=== PATIENT | female | born 1970 | race Caucasian/White ===

== ENCOUNTER → 2020-03-08 09:06 | Outpatient (BNVA) | payer OTHER, SELFPAY | PROVIDERS: PCP Nurse Practitioner Family; Referring Provider Nurse Practitioner Family; Visit Provider Dietitian, Registered | DX: Z76.89 Persons encountering health services in other specified circumstances (principal) ==

== ENCOUNTER → 2020-04-13 09:28 | Outpatient (BNVA) | payer OTHER, SELFPAY | PROVIDERS: PCP Nurse Practitioner Family; Referring Provider Nurse Practitioner Family; Visit Provider Dietitian, Registered | DX: Z76.89 Persons encountering health services in other specified circumstances (principal) ==

== ENCOUNTER 2020-04-21 13:18 | Outpatient (REF) | payer OTHER, SELFPAY | END 2020-04-21 13:19 | disposition home or self-care (01) | LOC: HO.LAB 13:18 | PROVIDERS: PCP Nurse Practitioner Family; Visit Provider Internal Medicine | DX: Z20.828 Contact with and (suspected) exposure to other viral communicable diseases (principal) | CPT/HCPCS: C9803; U0003 ==

== ENCOUNTER 2020-05-05 08:47 | Outpatient (REF) | payer OTHER, SELFPAY ==
[2020-05-05 11:21] LABS: MANUAL DIFF FLAG NO
[2020-05-05 11:27] LABS: Basophils Percent Auto 0.2 % (0-2); Eosinophils Absolute Auto 0.1 X10*3/uL (0.0-0.4); Eosinophils Percent Auto 1.1 % (0-4); Hematocrit 39.4 % (37-47); Hemoglobin 12.8 g/dl (12.0-16.0); Imm Gran Abs Auto 0.02 X10*3/uL (0.00-0.03); Imm Gran Pct Auto 0.4 % (0.0-0.4); Lymphocytes Absolute Auto 2.1 X10*3/uL (1.2-4.9); Lymphocytes Percent Auto 38.1 % (20-40); Mean Corpuscular HGB Conc 32.5 g/dl (31.0-35.0); Mean Corpuscular Volume 89.1 fL (80-98); Mean Platelet Volume 11.3 fL (9.4-12.3); Monocytes Absolute Auto 0.5 X10*3/uL (0.1-1.2); Monocytes Percent Auto 8.3 % (2-11); Neutrophils Absolute Auto 2.8 X10*3/uL (2.0-8.3); Neutrophils Percent Auto 51.9 % (45-73); Platelet Count 258 X10*3/uL (160-400); Red Blood Count 4.42 X10*6/uL (4.20-5.50); Red Cell Distribution Width 13.3 % (11.0-16.0); White Blood Count 5.4 X10*3/uL (4.8-10.8)
[2020-05-05 11:42] LABS: Estimated Average Glucose 166 mg/dL; Hemoglobin A1c % 7.4 %
[2020-05-05 12:01] LABS: TSH reflex Free T4 1.96 mIU/mL (0.32-4.0)
[2020-05-05 12:02] LABS: Alanine Aminotransferase 22 U/L (0-31); Albumin Level 4.2 g/dL (3.5-5.0); Alkaline Phosphatase 63 U/L (39-117); Anion Gap 13 (12-20); Aspartate Amino Transferase 17 U/L (5-31); Bilirubin Total 0.6 mg/dL (0.0-1.0); Blood Urea Nitrogen 10 mg/dL (9-16); Carbon Dioxide 24 mmol/L (22-29); Chloride 105 mmol/L (96-108); Cholesterol 179 mg/dL; Estimated Glomerular Filt Rate > 60; Glucose Fasting 135 mg/dL (60-99); HDL Cholesterol 49 mg/dL; LDL Cholesterol Calculated 101 mg/dl; Potassium 4.4 mmol/l (3.3-5.1); Sodium 138 mmol/L (135-145); Triglycerides 146 mg/dL
== END 2020-05-05 08:48 | disposition home or self-care (01) ==
LOC: HO.HMGCLDS 08:47
PROVIDERS: PCP Nurse Practitioner Family; Visit Provider Nurse Practitioner Family
DX: I10 Essential (primary) hypertension (principal); R73.09 Other abnormal glucose
CPT/HCPCS: 36415; 80053; 80061; 83036; 84443; 85025

== ENCOUNTER 2020-05-10 11:54 | Outpatient (REF) | payer OTHER, SELFPAY ==
[2020-05-12 21:02] LABS: TS Negative Control Passed; TS Panel A 0; TS Panel B 0; TS Positive Control Passed; TSpotTB Negative (SeeBelow)
== END 2020-05-10 11:55 | disposition home or self-care (01) ==
LOC: HO.HMGCLDS 11:54
PROVIDERS: PCP Nurse Practitioner Family; Visit Provider Nurse Practitioner Family
DX: Z11.1 Encounter for screening for respiratory tuberculosis (principal)
CPT/HCPCS: 86481

== ENCOUNTER 2020-05-26 14:16 | Outpatient (REF) | payer OTHER, SELFPAY | END 2020-05-26 14:17 | disposition home or self-care (01) | LOC: HO.LAB 14:16 | PROVIDERS: Visit Provider Hospitalist | DX: Z20.828 Contact with and (suspected) exposure to other viral communicable diseases (principal) | CPT/HCPCS: U0003 ==

== ENCOUNTER → 2020-06-13 09:50 | Outpatient (BNVA) | payer OTHER, SELFPAY | PROVIDERS: PCP Nurse Practitioner Family; Visit Provider Dietitian, Registered | DX: Z76.89 Persons encountering health services in other specified circumstances (principal) ==

== ENCOUNTER 2020-06-21 15:56 | Outpatient (REF) | payer OTHER, SELFPAY ==
[2020-06-21 17:06] LABS: MANUAL DIFF FLAG NO
[2020-06-21 17:09] LABS: Basophils Percent Auto 0.4 % (0-2); Eosinophils Absolute Auto 0.1 X10*3/uL (0.0-0.4); Hemoglobin 12.4 g/dl (12.0-16.0); Imm Gran Abs Auto 0.01 X10*3/uL (0.00-0.03); Imm Gran Pct Auto 0.2 % (0.0-0.4); Lymphocytes Absolute Auto 2.2 X10*3/uL (1.2-4.9); Lymphocytes Percent Auto 44.2 % (20-40); Mean Corpuscular HGB Conc 32.6 g/dl (31.0-35.0); Mean Platelet Volume 10.6 fL (9.4-12.3); Monocytes Absolute Auto 0.3 X10*3/uL (0.1-1.2); Monocytes Percent Auto 6.5 % (2-11); Neutrophils Absolute Auto 2.4 X10*3/uL (2.0-8.3); Neutrophils Percent Auto 47.7 % (45-73); Platelet Count 302 X10*3/uL (160-400); Red Blood Count 4.27 X10*6/uL (4.20-5.50); Red Cell Distribution Width 12.8 % (11.0-16.0)
[2020-06-21 17:29] LABS: Glucose Urine UA NEG (NEG); Leukocyte Esterase Urine NEG (NEG); Nitrite Urine NEG (NEG); Specific Gravity - Urine >= 1.030 (1.005-1.025); Urine Blood NEG (NEG); Urine Ketones NEG (NEG); Urine Protein NEG (NEG-TRACE)
[2020-06-21 17:31] LABS: Alanine Aminotransferase 20 U/L (0-31); Albumin Level 4.2 g/dL (3.5-5.0); Alkaline Phosphatase 64 U/L (39-117); Anion Gap 13 (12-20); Appearance Urine CLEAR; Aspartate Amino Transferase 12 U/L (5-31); Bilirubin Total 0.3 mg/dL (0.0-1.0); Blood Urea Nitrogen 10 mg/dL (9-16); Calcium 9.5 mg/dL (8.4-10.2); Carbon Dioxide 26 mmol/L (22-29); Chloride 104 mmol/L (96-108); Color Urine YELLOW; Estimated Glomerular Filt Rate > 60; Glucose Random 112 mg/dL (60-115); Potassium 3.7 mmol/l (3.3-5.1); Sodium 139 mmol/L (135-145)
[2020-06-21 17:38] LABS: Bacteria Urine 1+ /LPF; Mucus Urine 1+ /LPF; Squamous Epithelial Cell Urine 2+ /LPF
[2020-06-21 17:47] LABS: Creatinine Urine 138.85 mg/dL; Microalbum/Creatinine Ratio Ur 7.9 ug/mg cr
[2020-06-21 17:49] LABS: Erythrocyte Sedimentation Rate 32 MM/HR (0-20)
[2020-06-22 13:28] LABS: Anti DNA DS Antibody <1 IU/mL; Complement C3 148 mg/dL (83-193)
== END 2020-06-21 15:57 | disposition home or self-care (01) ==
LOC: HO.LAB 15:56
PROVIDERS: PCP Nurse Practitioner Family; Referring Provider Nurse Practitioner Family; Visit Provider Student in an Organized Health Care Education/Training Program
DX: M35.01 Sjogren syndrome with keratoconjunctivitis (principal); E11.9 Type 2 diabetes mellitus without complications; I10 Essential (primary) hypertension
CPT/HCPCS: 36415; 80053; 81001; 82043; 85025; 85652; 86140; 86160; 86225

== ENCOUNTER 2020-07-05 15:16 | Outpatient (REF) | payer OTHER, SELFPAY ==
--- NOTE | 2020-07-05 15:20 | XR_ITS ---
EXAMINATION: XR CERVICAL SPINE CLINICAL INFORMATION: Unspecified injury of the neck. Initial encounter. COMPARISON: None TECHNIQUE: 3 views of the cervical spine were obtained. FINDINGS: There is reversal of normal cervical lordosis present. The heights of the cervical vertebrae are well-maintained. The posterior appendages are intact. Decreased disc height, endplate osteophyte formations, consistent with [id number] degenerative spondylosis related changes are noted at C4-C5, C5-C6, and C6-C7. The prespinal soft tissues are unremarkable. The C1-C2 alignment is intact. Both lung apices are clear. XR/XR cervical spine 3V IMPRESSION: Reversal of normal cervical lordosis and superimposed [id number] multilevel degenerative spondylosis.
== END 2020-07-05 15:17 | disposition home or self-care (01) ==
LOC: HO.HMGCX 15:16
PROVIDERS: PCP Nurse Practitioner Family; Visit Provider Nurse Practitioner Family
DX: S19.9XXA Unspecified injury of neck, initial encounter (principal)
CPT/HCPCS: 72040

== ENCOUNTER → 2020-07-11 11:10 | Outpatient (BNVA) | payer OTHER, SELFPAY | PROVIDERS: PCP Nurse Practitioner Family; Visit Provider Dietitian, Registered ==

== ENCOUNTER 2020-08-17 | Outpatient (REF) | payer OTHER, SELFPAY | END 2020-08-17 00:01 | disposition home or self-care (01) | LOC: HO.LNP | PROVIDERS: Visit Provider Hospitalist | DX: R30.0 Dysuria (principal) | CPT/HCPCS: 87086; 87088; 87186 ==

== ENCOUNTER → 2020-08-22 10:13 | Outpatient (BNVA) | payer OTHER, SELFPAY | PROVIDERS: PCP Nurse Practitioner Family; Visit Provider Dietitian, Registered ==

== ENCOUNTER 2020-08-23 14:00 | Outpatient (RCR) | payer OTHER, SELFPAY ==
--- NOTE | 2020-08-18 16:01 | MHC.PT.EP ---
[facility] [place] Office [place] Office [place] Office [address] Madeline Gonzales [address] [phone] F: [phone] F: [phone] F: [phone] F: [phone] Physical Therapy Plan of Care Date of Evaluation: 08/18/20 Date of Surgery: Diagnosis: Traumatic injury of the neck Assessment: The Pt is a 49 y/o female referred to skilled PT for trauma injury of the neck s/p slip and fall down a flight of stairs on 07/04/20. Assessment reveals mild decreased cervical ROM, impaired thoracic spine mobility, altered posture, increased tissue tension, impaired muscle length, ? left cervical spine facet joint dysfunction, and impaired strength. The Pt will benefit from skilled PT services 2x/week for 5 weeks in order to reduce impairments and improve limitations including difficulty bathing, dressing, lifting, reading, computer work, driving, and sleeping. 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 Frequency and Duration: The patient will be seen 2x/week for 5 weeks Short Term Goals: -In 2 weeks, Pt to report <6/10 pain w/ AROM of the cervical spine. -In 3 weeks, Pt to demonstrate a decreased erythematous response w/ IASTM. Half-Way Goals: -In 4 weeks, Pt to report <4/10 pain during light strengthening program. -In 5 weeks, Pt to improve NDI by at least 6 points and/or self report at least 50% improvement since IE. -In 5 weeks, Pt to demonstrate I w/ HEP. Treatment Plan: Modalities to reduce pain, spasms and effusion. Manual therapy to restore motion and function. Therapeutic exercise to improve strength and flexibility. Neuromuscular re-education for posture and balance. Therapeutic activities to return to functional activities of daily living. Electronically signed by: Criselda Koch PT, DPT Please sign and return to therapist. Thank you for your referral.
--- NOTE | 2020-09-09 14:58 | MHC.PT.EP ---
[facility] [place] Office [place] Office [place] Office [address] Madeline Gonzales [address] [phone] F: [phone] F: [phone] F: [phone] F: [phone] Physical Therapy Plan of Care Date of Evaluation: 08/23/20 Date of Surgery: Diagnosis: Traumatic injury of the neck Assessment: The Pt is a 49 y/o female referred to skilled PT for trauma injury of the neck s/p slip and fall down a flight of stairs on 07/04/20. Assessment reveals mild decreased cervical ROM, impaired thoracic spine mobility, altered posture, increased tissue tension, impaired muscle length, ? left cervical spine facet joint dysfunction, and impaired strength. The Pt will benefit from skilled PT services 2x/week for 5 weeks in order to reduce impairments and improve limitations including difficulty bathing, dressing, lifting, reading, computer work, driving, and sleeping. 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 Frequency and Duration: The patient will be seen 2x/week for 5 weeks Short Term Goals: -In 2 weeks, Pt to report <6/10 pain w/ AROM of the cervical spine. -In 3 weeks, Pt to demonstrate a decreased erythematous response w/ IASTM. Assisted Goals: -In 4 weeks, Pt to report <4/10 pain during light strengthening program. -In 5 weeks, Pt to improve NDI by at least 6 points and/or self report at least 50% improvement since IE. -In 5 weeks, Pt to demonstrate I w/ HEP. Treatment Plan: Modalities to reduce pain, spasms and effusion. Manual therapy to restore motion and function. Therapeutic exercise to improve strength and flexibility. Neuromuscular re-education for posture and balance. Therapeutic activities to return to functional activities of daily living. Electronically signed by: Criselda Koch PT, DPT Please sign and return to therapist. Thank you for your referral.
== END 2020-09-09 15:05 | disposition other institution (70) ==
LOC: HO.PT 14:00
PROVIDERS: PCP Nurse Practitioner Family; Visit Provider Nurse Practitioner Family
DX: S19.9XXA Unspecified injury of neck, initial encounter (principal)
CPT/HCPCS: 97110; 97140; 97161

== ENCOUNTER 2021-02-03 14:44 | Outpatient (REF) | payer OTHER, SELFPAY ==
--- NOTE | ~2021-02-03 | MM_ITS ---
EXAMINATION: MM SCREENING DIGITAL BREAST TOMOSYNTHESIS, BILATERAL CLINICAL INFORMATION: Screening. Asymptomatic. The lifetime risk of breast cancer based on the Tyrer-Cuzick Model is 23%. COMPARISON: Mammography: 01/04/2020, 07/18/2018, 03/26/2018, 03/09/2017, 03/02/2016 TECHNIQUE: Digital breast tomosynthesis is performed in both the craniocaudal and mediolateral oblique views along with computer-aided detection (CAD). Synthesized 2D images are generated from the tomosynthesis. FINDINGS: There are scattered areas of fibroglandular density (ACR BI-RADS breast composition Category b). The right breast appears similar to prior studies. There is no developing density or interval mass or architectural abnormality. Neither breast shows abnormal calcifications. The axilla and skin contours are unremarkable. The left CC view has asymmetric density central inner breast mid depth without correlate on MLO view, likely shifting or incompletely compressed fibroglandular tissue. Patient will be recalled to confirm. MM/MM tomosynthesis screening BI IMPRESSION: 1. Left: Asymmetric density central inner breast limited to CC view likely artifact from shifting or incompletely compressed fibroglandular tissue. 2. Right: No mammographic evidence of malignancy. ASSESSMENT: BI-RADS 0: Incomplete - Need Additional Imaging Evaluation RECOMMENDATION: 1. Additional views of the left breast (3-D spot CC, 3-D rolled CC x2). 2. Targeted ultrasound if warranted after review of the additional views. 3. Radiology department staff will contact the patient for additional imaging. This patient's information was entered into a reminder system with a target due date for their next mammogram.
== END 2021-02-03 14:45 | disposition home or self-care (01) ==
LOC: HO.MAMMO 14:44
PROVIDERS: Visit Provider Nurse Practitioner Family
DX: Z12.31 Encounter for screening mammogram for malignant neoplasm of breast (principal)
CPT/HCPCS: 77063; 77067

== ENCOUNTER 2021-02-21 14:06 | Outpatient (REF) | payer OTHER, SELFPAY ==
--- NOTE | ~2021-02-21 | MM_ITS ---
EXAMINATION: MM DIAGNOSTIC DIGITAL BREAST TOMOSYNTHESIS, LEFT TARGETED LEFT BREAST ULTRASOUND CLINICAL INFORMATION: Density central superior aspect left breast. COMPARISON: Mammography: 02/03/2021 and studies dating back to 10/06/2012. TECHNIQUE: Digital breast tomosynthesis is performed. 2D images are generated from the tomosynthesis. The following views are obtained: Spot craniocaudal projection and rolled craniocaudal views medial and lateral. Targeted left breast ultrasound. FINDINGS: There are scattered areas of fibroglandular density (ACR BI-RADS breast composition Category b). The additional views demonstrate question of a persistent density but which may represent a turn in a vessel. Ultrasound evaluation of the left breast did not demonstrate any abnormal cystic or solid masses. No region of abnormal distal sound shadowing appreciated. Results are discussed with the patient at time of visit. MM/MM tomosynthesis added views L IMPRESSION: No specific radiographic or ultrasound findings to suggest malignancy. Question of persistent density but appears to may represent a small intramammary lymph node or loop in vessel. Recommend 6 month follow-up left breast mammography. ASSESSMENT: BI-RADS 3: Probably Benign. RECOMMENDATION: Diagnostic mammography in 6 months. This patient's information was entered into a reminder system with a target due date for their next mammogram.
--- NOTE | ~2021-02-21 | US_ITS ---
EXAMINATION: US DIAGNOSTIC ULTRASOUND BREAST, LEFT CLINICAL INFORMATION: Density. COMPARISON: Mammography of same day and February 03, 2021. TECHNIQUE: Ultrasound of the breast is performed with real-time hoff scale imaging and color Doppler. FINDINGS: Ultrasound evaluation of the left breast did not demonstrate any abnormal cystic or solid masses. No region of abnormal distal sound shadowing appreciated. Results are discussed with the patient at time of visit. US/US breast LT limited IMPRESSION: No specific radiographic or ultrasound findings to suggest malignancy. Question persistent density but appears to may represent a small intramammary lymph node or loop in vessel. Recommend 6 month follow-up left breast mammography. ASSESSMENT: BI-RADS 3: Probably Benign RECOMMENDATION: Diagnostic mammography in 6 months.
== END 2021-02-21 14:07 | disposition home or self-care (01) ==
LOC: HO.MAMMO 14:06
PROVIDERS: Visit Provider Nurse Practitioner Family
DX: R92.2 Inconclusive mammogram (principal)
CPT/HCPCS: 76642; 77061; 77065

== ENCOUNTER 2021-03-23 14:16 | Outpatient (REF) | payer OTHER, SELFPAY ==
[2021-03-24 13:26] LABS: CT PCR NOT DETECTED (Not Detect.); NG PCR NOT DETECTED (Not Detect.)
[2021-03-26 12:35] LABS: BV Int Neg Control Negative (Negative); BV Int Pos Control Positive (Positive)
[2021-03-28 21:47] LABS: HPV mRNA E6/E7 rflx Not Detected (Not Detected)
== END 2021-03-23 14:17 | disposition home or self-care (01) ==
LOC: HO.LAB 14:16
PROVIDERS: Visit Provider Advanced Practice Midwife
DX: Z01.419 Encounter for gynecological examination (general) (routine) without abnormal findings (principal); Z11.51 Encounter for screening for human papillomavirus (HPV); Z11.3 Encounter for screening for infections with a predominantly sexual mode of transmission; C53.9 Malignant neoplasm of cervix uteri, unspecified; Z20.2 Contact with and (suspected) exposure to infections with a predominantly sexual mode of transmission; Z87.42 Personal history of other diseases of the female genital tract
CPT/HCPCS: 87480; 87491; 87510; 87591; 87624; 87660; 88142

== ENCOUNTER 2021-06-28 08:57 | Outpatient (REF) | payer OTHER, SELFPAY ==
--- NOTE | ~2021-06-28 | MR_ITS ---
EXAMINATION: MRI OF THE LEFT ANKLE WITHOUT CONTRAST CLINICAL INFORMATION: Pain left ankle. Patient reports prior surgery with healed skin grafting at age 11. COMPARISON: None TECHNIQUE: MRI left ankle was performed without contrast on a high-field MRI scanner. FINDINGS: Subcutaneous Soft Tissues: There is some minimal irregularity of the skin/superficial soft tissues in the heel pad region perhaps reflecting patient's reported history of prior skin graft. Calcaneal fat pad deep to this appears unremarkable. Muscles and Tendons: Normal. Plantar Fascia: Normal. Neurovascular Structures/Tarsal Tunnel: Normal. Ligaments: Normal. Bone and Articular Cartilage: Normal. Bursa: Normal Joint Fluid: Normal MR/MR ankle LT wo con IMPRESSION: No acute abnormality or explanation for the patient's reported symptoms. Findings in the heel region may reflect patient's remote history of skin graft.
== END 2021-06-28 08:58 | disposition home or self-care (01) ==
LOC: HO.MRI 08:57
PROVIDERS: Visit Provider Nurse Practitioner Family
DX: M25.472 Effusion, left ankle (principal); M25.572 Pain in left ankle and joints of left foot
CPT/HCPCS: 73721

== ENCOUNTER 2021-09-04 09:54 | Outpatient (REF) | payer OTHER, SELFPAY ==
--- NOTE | ~2021-09-04 | MM_ITS ---
EXAMINATION: MM DIAGNOSTIC DIGITAL BREAST TOMOSYNTHESIS, LEFT CLINICAL INFORMATION: Short interval six-month follow-up probable benign summation artifact or old density CC view mid 11:00 left breast. Family history breast cancer, mother. TC score 23%. COMPARISON: Mammography: 02/21/2021, 02/03/2021 (BI-RADS 0), 01/04/2020, 07/18/2018, 03/26/2018, 03/02/2016. Ultrasound left breast 02/21/2021. TECHNIQUE: Digital breast tomosynthesis is performed in both the craniocaudal and mediolateral oblique views along with computer-aided detection (CAD). Synthesized 2D images are generated from the tomosynthesis. Additional rolled CC x2 and ML view are obtained. FINDINGS: There are scattered areas of fibroglandular density (ACR BI-RADS breast composition Category b). The asymmetric density mid 11:00 position is again demonstrated on the standard CC view. The finding resolved on the additional rolled views suggesting summation artifact. There is no abnormal calcification. The skin contours are smooth. Left breast will be reassessed again at time of annual bilateral mammography, due in 6 months. Results are provided to the patient at time of visit by the technologist. MM/MM tomosynthesis diagnostic LT IMPRESSION: Asymmetric density mid 11:00 position limited to CC view resolves on additional rolled CC projections suggesting probable summation artifact. ASSESSMENT: BI-RADS 3: Probably Benign RECOMMENDATION: Diagnostic mammography at time of annual bilateral mammography, due in 6 months. This patient's information was entered into a reminder system with a target due date for their next mammogram.
== END 2021-09-04 09:55 | disposition home or self-care (01) ==
LOC: HO.MAMMO 09:54
PROVIDERS: PCP Nurse Practitioner Family; Visit Provider Nurse Practitioner Family
DX: R92.2 Inconclusive mammogram (principal)
CPT/HCPCS: 77061; 77065

== ENCOUNTER 2022-03-06 14:44 | Outpatient (REF) | payer OTHER, SELFPAY ==
--- NOTE | ~2022-03-06 | MM_ITS ---
EXAMINATION: MM DIAGNOSTIC DIGITAL BREAST TOMOSYNTHESIS, BILATERAL CLINICAL INFORMATION: Due for yearly. Also follow-up nodular asymmetry, suspected summation artifact mid 11:00 left breast. Family history breast cancer, mother. TC score 23%. COMPARISON: Mammography: 09/04/2021, 02/21/2021, 02/03/2021 (BI-RADS 0), 01/04/2020, 07/18/2018, 03/26/2018; ultrasound left breast 02/21/2021. TECHNIQUE: Digital breast tomosynthesis is performed in both the craniocaudal and mediolateral oblique views along with computer-aided detection (CAD). Synthesized 2D images are generated from the tomosynthesis. FINDINGS: There are scattered areas of fibroglandular density (ACR BI-RADS breast composition Category b). No developing density or architectural abnormality. Parenchymal pattern is similar to prior studies. The asymmetric density for follow-up is not seen with certainty. Left breast will be reassessed again at next bilateral annual mammography to conclude chronic surveillance. The skin contours are smooth. Results are provided to the patient at time of visit by the technologist. MM/MM tomosynthesis diagnostic BI IMPRESSION: No mammographic evidence of malignancy. No developing density. ASSESSMENT: BI-RADS 3: Probably Benign RECOMMENDATION: Diagnostic mammography at time of next annual exam, due in 12 months. This patient's information was entered into a reminder system with a target due date for their next mammogram.
== END 2022-03-06 14:45 | disposition home or self-care (01) ==
LOC: HO.MAMMO 14:44
PROVIDERS: Visit Provider Nurse Practitioner Family
DX: R92.2 Inconclusive mammogram (principal); N64.89 Other specified disorders of breast; Z80.3 Family history of malignant neoplasm of breast
CPT/HCPCS: 77062; 77066

== ENCOUNTER 2022-04-19 11:21 | Outpatient (REF) | payer OTHER, SELFPAY ==
[2022-04-20 02:17] LABS: CT PCR NOT DETECTED (Not Detect.); NG PCR NOT DETECTED (Not Detect.)
[2022-04-20 10:11] LABS: BV Int Neg Control Negative (Negative); BV Int Pos Control Positive (Positive)
[2022-05-02 04:57] LABS: HPV mRNA E6/E7 rflx Not Detected (Not Detected)
== END 2022-04-19 11:22 | disposition home or self-care (01) ==
LOC: HO.LNP 11:21
PROVIDERS: Visit Provider Advanced Practice Midwife
DX: Z01.419 Encounter for gynecological examination (general) (routine) without abnormal findings (principal)
CPT/HCPCS: 87480; 87491; 87510; 87591; 87624; 87660; 88142

== ENCOUNTER 2022-04-23 07:14 | Outpatient (REF) | payer OTHER, SELFPAY ==
[2022-04-23 08:14] LABS: Syphilis Screen Nonreactive (Nonreactive)
[2022-04-23 08:21] LABS: HBsAGNum1 0.25 S/CO (0.00-0.99); HIV AB/AG Nonreactive (Nonreactive); HIV Num 1 0.12 S/CO (0.00-0.99); Hepatitis B Surface Antigen Negative (Negative); ~Hepatitis C Antibody Nonreactive (Nonreactive)
== END 2022-04-23 07:15 | disposition home or self-care (01) ==
LOC: HO.LAB 07:14
PROVIDERS: Absent Provider Advanced Practice Midwife; PCP Nurse Practitioner Family; Visit Provider Nurse Practitioner Family
DX: Z11.3 Encounter for screening for infections with a predominantly sexual mode of transmission (principal); Z11.4 Encounter for screening for human immunodeficiency virus [HIV]
CPT/HCPCS: 36415; 86780; 86803; 87340; 87389

== ENCOUNTER 2022-05-04 07:19 | Outpatient (REF) | payer OTHER, SELFPAY ==
[2022-05-04 07:35] LABS: MANUAL DIFF FLAG NO
[2022-05-04 08:13] LABS: Basophils Percent Auto 0.3 % (0-2); Eosinophils Absolute Auto 0.1 X10*3/uL (0.0-0.4); Eosinophils Percent Auto 1.6 % (0-4); Hematocrit 41.2 % (37.0-47.0); Hemoglobin 13.5 g/dl (12.0-16.0); Imm Gran Abs Auto 0.03 X10*3/uL (0.00-0.03); Imm Gran Pct Auto 0.4 % (0.0-0.4); Lymphocytes Absolute Auto 2.5 X10*3/uL (1.2-4.9); Mean Corpuscular HGB Conc 32.8 g/dl (31.0-35.0); Mean Corpuscular Hemoglobin 29.7 pg (27.0-33.0); Mean Corpuscular Volume 90.5 fL (80.0-98.0); Mean Platelet Volume 11.1 fL (9.4-12.3); Monocytes Absolute Auto 0.6 X10*3/uL (0.1-1.2); Monocytes Percent Auto 7.8 % (2-11); Neutrophils Absolute Auto 4.4 x10*3/uL (2.0-8.3); Neutrophils Percent Auto 56.9 % (45-73); Platelet Count 304 X10*3/uL (160-400); Red Blood Count 4.55 X10*6/uL (4.20-5.50); Red Cell Distribution Width 13.5 % (11.0-16.0); White Blood Count 7.7 X10*3/uL (4.8-10.8)
[2022-05-04 08:29] LABS: Estimated Average Glucose 163 mg/dL; Hemoglobin A1c % 7.3 %
[2022-05-04 08:52] LABS: Erythrocyte Sedimentation Rate 29 MM/HR (0-20)
[2022-05-04 09:01] LABS: Appearance Urine Clear; Color Urine Yellow; Glucose Urine UA Negative (Negative); Leukocyte Esterase Urine Small (1+) (Negative); Nitrite Urine Negative (Negative); PH 5.5 (5.0-9.0); Specific Gravity - Urine 1.025 (1.005-1.025); UMIC TRIGGER UACC YES; Urine Blood Negative (Negative); Urine Ketones Negative (Negative); Urine Protein Negative (Neg-Trace)
[2022-05-04 09:07] LABS: Bacteria Urine Trace (None Seen); Hyaline Casts Urine 0-2 /LPF (0-2); RBC Urine 0-2 /HPF (0-2); UACC Culture Trigger YES
[2022-05-04 09:18] LABS: Alanine Aminotransferase 36 U/L (0-31); Albumin Level 4.1 g/dL (3.5-5.0); Alkaline Phosphatase 59 U/L (39-117); Anion Gap 12 (12-20); Aspartate Amino Transferase 15 U/L (5-31); Bilirubin Total 0.3 mg/dL (0.0-1.0); Blood Urea Nitrogen 14 mg/dL (9-16); Calcium 9.3 mg/dL (8.4-10.2); Carbon Dioxide 25 mmol/L (22-29); Chloride 101 mmol/L (96-108); Cholesterol 138 mg/dL; Estimated Glomerular Filt Rate > 60; Glucose Fasting 139 mg/dL (60-99); HDL Cholesterol 49 mg/dL; LDL Cholesterol Calculated 74 mg/dl; Potassium 4.5 mmol/L (3.3-5.1); Sodium 133 mmol/L (135-145); TSH reflex Free T4 1.88 uIU/mL (0.32-4.0); Triglycerides 78 mg/dL
[2022-05-04 09:34] LABS: Folate 16.9 ng/mL (> or = 4.0); Vitamin B12 349 pg/mL (200-900)
[2022-05-04 09:48] LABS: Creatinine Urine 187.13 mg/dL; Microalbum/Creatinine Ratio Ur 11.7 ug/mg cr
[2022-05-06 18:59] LABS: TS Negative Control Passed; TS Panel A 0; TS Panel B 0; TS Positive Control Passed; TSpotTB Negative (Negative)
[2022-05-09 13:22] LABS: A. Phagocytphilium DNA,RT-PCR NOT DETECTED (NOT DETECTED); Babesia Microti DNA, RT-PCR NOT DETECTED (NOT DETECTED); Borrelia Miyamotoi,DNA RT-PCR NOT DETECTED (NOT DETECTED); E.Chaffeensis DNA RT-PCR NOT DETECTED (NOT DETECTED); Lyme(Borrelia ssp)DNA RT-PCR NOT DETECTED (NOT DETECTED)
== END 2022-05-04 07:20 | disposition home or self-care (01) ==
LOC: HO.LAB 07:19
PROVIDERS: PCP Nurse Practitioner Family; Visit Provider Nurse Practitioner Family
DX: Z11.1 Encounter for screening for respiratory tuberculosis (principal); M25.50 Pain in unspecified joint; E11.9 Type 2 diabetes mellitus without complications
CPT/HCPCS: 36415; 80053; 80061; 81001; 81003; 82043; 82607; 82746; 83036; 84443; 85025; 85652; 86141; 86481; 87086; 87798; 87801

== ENCOUNTER 2023-01-08 10:51 | Outpatient (AMB) | payer OTHER, SELFPAY ==
--- NOTE | 2023-01-08 11:28 | AM.OFFWIN_ITS ---
Intake Vital Signs 01/08/23 11:30 Height 5 ft 8 in Weight 98.883 kg BMI 33.1 BP 110/72 Blood Pressure Location Rt brachial Position Sitting Pulse 86 Pulse Source Pulse Oximeter Pulse Oximetry (%) 98 Oxygen Delivery Method Room Air Intake Visit Reasons: EP, Low back pain Intake Note: Patient here for lower back pain, she stated she tripped up the stairs and caught herself on the door on saturday. Patient Tobacco Use Status: Current everyday Tobacco user Allergies No Known Allergies [No Known Allergies*] Allergy (Verified 01/08/23 11:30) Do you need a note to return to daycare/school/sports/work: No HPI HPI Comments History of Present Illness Details 52-year-old female presents with lumbar back pain and bilateral hip pa in after a trip without fall last week. States that the muscle spasms are intense causing her to limp and now has hip pain. She does not report fevers, chills, or symptoms indicating cauda equina. [facility] Medical History HTN (hypertension) Sjogrens syndrome Surgical History H/O LEEP H/O tubal ligation History of foot surgery Family History Father No problems noted. Mother HTN (hypertension) IDDM (insulin dependent diabetes mellitus) Breast cancer Maternal Grandmother History of heart attack Breast cancer Maternal Grandfather History of heart attack Diabetes mellitus Paternal Grandfather No problems noted. Paternal Grandmother No problems noted. Maternal Aunt Cancer Maternal Uncle Lung cancer Smoker Brother No problems noted. Brother No problems noted. Brother No problems noted. Brother No problems noted. Son No problems noted. Son No problems noted. Daughter Healthy female Daughter Healthy female Social History Housing: House Alcohol intake: never Patient Tobacco Use Status: Current everyday Tobacco user Cigarette Packs Per Day: 1 e-Cigarette/Vaping Use: Never Used Second Hand Smoke Exposure: No Current occupational status: employed Cognitive needs: No Hearing needs: No Vision needs: No Female Reproductive History Menstrual Age of Menarche: 12 Review of Systems Const Details: Constitutional: No Fever, No Chills Cardiovascular: No Chest Pain, No SOB Respiratory: No Cough, No Dyspnea Gastrointestinal: No Nausea, No Vomiting, No Diarrhea, No abdominal Pain Genitourinary: No Dysuria, No Hematuria Musculoskeletal: positive lumbar back and bilateral pain, No Myalgias, No Joint Swelling Skin: No Skin lacerations, No rash Neuro: No Weakness, No Numbness, No Paresthesias, No Loss of Consciousness, No Dizziness, No Headache All systems reviewed & are unremarkable except as noted in HPI and below Physical Exam Vital Signs: Last Vital Signs Pulse 86 01/08/23 11:30 BP 110/72 01/08/23 11:30 Pulse Ox 98 01/08/23 11:30 Oxygen Delivery Method Room Air 01/08/23 11:30 BMI result Body Mass Index 33.1 Appearance: Alert. Oriented X3. No acute distress. Eyes: Pupils equal, round and reactive to light. Neck: Normal inspection. Neck supple. CVS: Normal heart rate and rhythm. Pulses normal. Respiratory: No respiratory distress. Breath sounds normal. Skin: Skin warm and dry. Normal skin color. Normal skin turgor. Extremities: No lower extremity edema. Limping but steady gait. Neuro: No motor deficit. No sensory deficit. Cranial nerves 2-12 intact. Assessment & Plan Assessment & Plan (1) Lumbar back pain: Code(s): M54.50 - Low back pain, unspecified (2) Bilateral hip pain: Code(s): M25.551 - Pain in right hip; M25.552 - Pain in left hip Plan 52-year-old female presents for evaluation for lumbar back and bilateral hip pain after a trip last week. Patient tripped, but did not fall or hit her head. She states that after that she had some limping and back spasms. Review of records indicates this patient does not have any prior lumbar x-rays, at this time considering patient's age and comorbidities, will order x-rays. Patient is alert oriented x4, answering her questions politely and appropriately, ambula ting with a limp. No indication of cauda equina. Strength 5/5 to all extremities. Brisk capillary refill and equal pulses. 12:49 x-rays negative for acute findings. Pending radiology read. Will treat with cyclobenzaprine for muscle spasms. Supportive measures with Tylenol and Motrin, patient does understand not take cyclobenzaprine at the same time taking Motrin. Patient will follow up with primary care provider as needed. Patient verbalized understanding of discharge instructions. Verbalized understandings of signs and symptoms indicating need for emergent intervention. Orders: Orders XR pelvis 1-2V Today M25.551 - Pain in right hip, M25.552 - Pain in left hip, M54.50 - Low back pain, unspecified XR lumbar spine 2-3V Today M25.551 - Pain in right hip, M25.552 - Pain in left hip, M54.50 - Low back pain, unspecified Medications: New cyclobenzaprine 10 mg PO TID PRN 20 tabs 0RF muscle spasm Patient Instructions: You were evaluated for lumbar back pain and hip pain. X-rays are negative for acute findings. Your symptoms are consistent with a musculoskeletal strain. Please take cyclobenzaprine 10 mg every 8 hours as needed for muscle spasms. Do not take this medication at the same time as taking ibuprofen. Wait at least 4 hours after taking ibuprofen to take this medicine. This medication is a muscle relaxer, can delay reaction time, increased risk for falls, and cause drowsiness. Do not drive or operate machinery while taking this medication. Alternate Tylenol 650 mg every 6 hours and Motrin 600 mg every 6 hours as needed for pain management. Consider taking these medications 3 hours apart so you have pain and fever management every 3 hours. Write down what time you take these medications to prevent accidental overdose. Motrin is the same medication as Advil and ibuprofen. Tylenol is the same medication as acetaminophen. Thank you for choosing this urgent care for evaluation. Please follow-up with primary care physician as needed. Return to the emergency department for any new, concerning, or worsening symptoms. Coding Level of Care Code Est Pt Level 3 (13516) Diagnoses Lumbar back pain M54.50 Bilateral hip pain M25.551; M25.552
[2023-01-08 11:30] VITALS: BP 110/72; PULSE 86; O2SAT 98; BMI 33.1
== END 2023-01-08 12:51 | disposition home or self-care (01) ==
PROVIDERS: PCP Nurse Practitioner Family; Visit Provider Nurse Practitioner Family
DX: M54.50 Low back pain, unspecified (principal); M25.551 Pain in right hip; M25.552 Pain in left hip
CPT/HCPCS: 99213

== ENCOUNTER 2023-01-08 11:56 | Outpatient (REF) | payer OTHER, SELFPAY ==
--- NOTE | ~2023-01-08 | XR_ITS ---
EXAMINATION: XR LUMBOSACRAL SPINE CLINICAL INFORMATION: Low back pain, unspecified COMPARISON: None available. TECHNIQUE: Three views of the lumbosacral spine. FINDINGS: There are 5 nonrib-bearing lumbar-type vertebral bodies. The height of vertebral bodies is well-maintained. There is minimal disc space narrowing at L3-L4. There is no spondylolisthesis or spondylolysis. There is loss of the usual lumbar lordosis which can be seen with muscle spasm. Facet joints are well preserved. There is sclerosis along the iliac side of the sacroiliac joints consistent with osteitis condensans ilii. XR/XR lumbar spine 2-3V IMPRESSION: 1. Muscle spasm. 2. Minimal degenerative disc disease at L3-L4.
--- NOTE | ~2023-01-08 | XR_ITS ---
EXAMINATION: XR PELVIS CLINICAL INFORMATION: Pain in right hip COMPARISON: None available. TECHNIQUE: AP view of the pelvis. FINDINGS: No fracture. There is minimal narrowing of the cartilage space of the right hip. The left hip joint space is maintained. Alignment is anatomic. Sacroiliac joints and pubic symphysis are normal. No abnormal soft tissue calcifications. XR/XR pelvis 1-2V IMPRESSION: Minimal narrowing of the cartilage space of the right hip.
== END 2023-01-08 11:57 | disposition home or self-care (01) ==
LOC: HO.HMGCX 11:56
PROVIDERS: PCP Nurse Practitioner Family; Visit Provider Nurse Practitioner Family
DX: M25.551 Pain in right hip (principal); M25.552 Pain in left hip; M54.50 Low back pain, unspecified
CPT/HCPCS: 72100; 72170

== ENCOUNTER 2023-01-21 13:54 | Outpatient (AMB) | payer OTHER, SELFPAY ==
[2023-01-21 14:26] VITALS: BP 122/64; PULSE 96; TEMP 36.7; O2SAT 98; BMI 34.1
--- NOTE | 2023-01-21 14:26 | AM.OFFWIN_ITS ---
Intake Vital Signs 01/21/23 14:26 Height 5 ft 8 in Weight 224 lb BMI 34.1 BP 122/64 Blood Pressure Location Lt brachial Position Sitting Pulse 96 Pulse Source Pulse Oximeter Temp 98.0 F Temp Source Temporal Artery Scan Pulse Oximetry (%) 98 Oxygen Delivery Method Room Air Intake Visit Reasons: EP RT Hand swelling due to ?insect bite Intake Note: pt is here for c/o of Rt Hand swelling due to insect bite Patient Tobacco Use Status: Current everyday Tobacco user Allergies No Known Allergies [No Known Allergies*] Allergy (Verified 01/21/23 15:14) Medication List - Last Reconciled 01/21/23 by Paddy Nova MD albuterol sulfate 90 mcg/actuation (Ventolin HFA) 1 inh inhalation QID PRN alcohol swabs (Alcohol Prep Pads) 1 pad topical DAILY atorvastatin 10 mg PO BEDTIME blood sugar diagnostic (FreeStyle Lite Strips) 1 strip miscellaneous twice a day; 30 days blood-glucose meter (FreeStyle Lite Meter kit) As directed bupropion HCl 150 mg PO QAM buspirone 7.5 mg PO BID 30 days cyclobenzaprine 10 mg PO TID PRN ibuprofen 800 mg PO BID PRN 30 days lancets (FreeStyle Lancets) 28 gauge miscellaneous twice a day testing; twice a day testing 30 days lisinopril 2.5 mg PO DAILY physovcddxzc-ykvjcuwz-nanuio 1 tab PO DAILY sumatriptan succinate 50 mg PO ONCE PRN 30 days Do you need a note to return to daycare/school/sports/work: Yes HPI EP RT Hand swelling due to ?insect bite HPI Details 52-year-old female presents to the office for a sick visit. Patient reports she was stung by an insect over the right wrist. Subsequently she is feeling a swelling there and discomfort in her hands. REPLACED BY [facility] Medical History HTN (hypertension) Sjogrens syndrome Surgical History H/O LEEP H/O tubal ligation History of foot surgery Family History Father No problems noted. Mother HTN (hypertension) IDDM (insulin dependent diabetes mellitus) Breast cancer Maternal Grandmother History of heart attack Breast cancer Maternal Grandfather History of heart attack Diabetes mellitus Paternal Grandfather No problems noted. Paternal Grandmother No problems noted. Maternal Aunt Cancer Maternal Uncle Lung cancer Smoker Brother No problems noted. Brother No problems noted. Brother No problems noted. Brother No problems noted. Son No problems noted. Son No problems noted. Daughter Healthy female Daughter Healthy female Social History Housing: House Alcohol intake: never Patient Tobacco Use Status: Current everyday Tobacco user Cigarette Packs Per Day: 1 e-Cigarette/Vaping Use: Never Used Second Hand Smoke Exposure: No Current occupational status: employed Cognitive needs: No Hearing needs: No Vision needs: No Female Reproductive History Menstrual Age of Menarche: 12 Physical Exam Vital Signs: Last Vital Signs Temp 98.0 F 01/21/23 14:26 Pulse 96 01/21/23 14:26 BP 122/64 01/21/23 14:26 Pulse Ox 98 01/21/23 14:26 Oxygen Delivery Method Room Air 01/21/23 14:26 BMI result Body Mass Index 34.1 Extrem Other: Right hand: Swelling over the dorsum of the hand. Minimal discomfort on flexion of the wrist. Assessment & Plan Assessment & Plan (1) Bee sting: Code(s): T63.441A - Toxic effect of venom of bees, accidental (unintentional), initial encounter Plan: Prednisone for a few days. If symptoms not better to follow-up. Coding Level of Care Code Est Pt Level 3 (00290) Diagnoses Bee sting T63.441A
== END 2023-01-21 15:19 | disposition home or self-care (01) ==
PROVIDERS: PCP Nurse Practitioner Family; Visit Provider Internal Medicine
DX: T63.441A Toxic effect of venom of bees, accidental (unintentional), initial encounter (principal)
CPT/HCPCS: 99213

== ENCOUNTER 2023-03-22 13:13 | Outpatient (REF) | payer OTHER, SELFPAY ==
--- NOTE | ~2023-03-22 | MM_ITS ---
EXAMINATION: MM DIAGNOSTIC DIGITAL BREAST TOMOSYNTHESIS, BILATERAL CLINICAL INFORMATION: 6 month follow-up for nodular asymmetry seen left breast in the CC projection slightly medial of nipple line, middle one third. This will establish a two-year stability. COMPARISON: Mammography: 03/06/2022, 09/04/2021, 02/21/2021, 02/03/2021, 01/04/2020. TECHNIQUE: Digital breast tomosynthesis is performed in both the craniocaudal and mediolateral oblique views along with computer-aided detection (CAD). Synthesized 2D images are generated from the tomosynthesis. FINDINGS: There are scattered areas of fibroglandular density (ACR BI-RADS breast composition Category b). No developing density, mass, or architectural abnormality. The parenchymal pattern and stromal pattern is unchanged bilaterally from prior studies. The one view asymmetric density for follow-up is seen, and is less conspicuous than previously, and on tomographic views appears to represent a probable intramammary lymph node as originally suspected. A suspected correlate is seen in the left MLO projection approximate 11:00, middle one third. No additional abnormalities noted in either breast. MM/MM tomosynthesis diagnostic BI IMPRESSION: No findings suspicious for malignancy in either breast. Nodular asymmetry left breast 11:00 axis appears unchanged over 2 years, establishing benignity, and is most likely related to a benign intramammary lymph node. Recommend patient resume annual routine screening for both breasts. ASSESSMENT: BI-RADS BI-RADS 2 - Benign Findings RECOMMENDATION: 1 year F/U Results were provided to the patient at time of visit by the technologist. This patient's information was entered into a reminder system with a target due date for their next mammogram.
== END 2023-03-22 13:14 | disposition home or self-care (01) ==
LOC: HO.MAMMO 13:13
PROVIDERS: PCP Nurse Practitioner Family; Visit Provider Nurse Practitioner Family
DX: R92.2 Inconclusive mammogram (principal)
CPT/HCPCS: 77062; 77066

== ENCOUNTER → 2023-03-22 13:30 | Outpatient (BNV) | payer OTHER, SELFPAY | PROVIDERS: PCP Nurse Practitioner Family; Visit Provider Radiology Diagnostic Radiology | DX: N64.89 Other specified disorders of breast (principal) | CPT/HCPCS: 77062; 77066 ==

== ENCOUNTER 2023-03-26 11:13 | Outpatient (AMB) | payer OTHER, SELFPAY ==
--- NOTE | 2023-03-26 11:16 | A.OFFPC_ITS ---
Vital Signs 03/26/23 11:22 Height 5 ft 8 in Weight 228 lb BMI 34.7 BP 122/80 Blood Pressure Location Rt brachial Position Sitting Pulse 78 Pulse Source Pulse Oximeter Pulse Oximetry (%) 98 Oxygen Delivery Method Room Air Intake Visit Reasons: PE Allergies No Known Allergies [No Known Allergies*] Allergy (Verified 03/26/23 12:06) Medication List - Last Reconciled 03/26/23 by HSERLY Islas albuterol sulfate 90 mcg/actuation (Ventolin HFA) 1 inh inhalation QID PRN alcohol swabs (Alcohol Prep Pads) 1 pad topical DAILY atorvastatin 10 mg PO BEDTIME blood sugar diagnostic (FreeStyle Lite Strips) 1 strip miscellaneous twice a day; 30 days blood-glucose meter (FreeStyle Lite Meter kit) As directed ibuprofen 800 mg PO BID PRN 30 days lancets (FreeStyle Lancets) 28 gauge miscellaneous twice a day testing; twice a day testing 30 days lisinopril 2.5 mg PO DAILY [id number]-[id number] 1 tab PO DAILY sumatriptan succinate 50 mg PO ONCE PRN 30 days Tobacco use date assessed: 03/26/23 Dental Screening Dental Screen Date: 03/26/23 Did you have a dental visit in the last 12 months?: No Did you have a dental problem in the last 6 months where you did not have access to dental care?: Yes Was dental information given to patient?: No HPI PE HPI Details Pt is here for a PE. Will order labs. Mammo is up to date. Due for colon screen, will refer to GI. Pt is a diabetic, on an VI and a statin. A1C in office today is 7.7. Microalbumin is up to date. Denies polyuria, polydipsia, and neuropathy. Pt denies any signs and symptoms of hypoglycemia and does know how to correct it. Pt does not check her blood sugar because she does not like pricking her finger. Will try to send sensor/transmitter. Will start ozempic 0.25mg. Discussed side effects with pt. eye exam is scheduled [facility] Medical History HTN (hypertension) Sjogrens syndrome Surgical History H/O tubal ligation History of foot surgery H/O LEEP Family History Father No problems noted. Mother HTN (hypertension) IDDM (insulin dependent diabetes mellitus) Breast cancer Maternal Grandmother History of heart attack Breast cancer Maternal Grandfather History of heart attack Diabetes mellitus Paternal Grandfather No problems noted. Paternal Grandmother No problems noted. Maternal Aunt Cancer Maternal Uncle Lung cancer Smoker Brother No problems noted. Brother No problems noted. Brother No problems noted. Brother No problems noted. Son No problems noted. Son No problems noted. Daughter Healthy female Daughter Healthy female Social History Housing: House Alcohol intake: never Patient Tobacco Use Status: Current everyday Tobacco user Cigarette Packs Per Day: 1 e-Cigarette/Vaping Use: Never Used Second Hand Smoke Exposure: No Current occupational status: employed Cognitive needs: No Hearing needs: No Vision needs: No Female Reproductive History Menstrual Age of Menarche: 12 Questionnaire Thrive Questionnaire Date Thrive assessed: 06/07/21 AUDIT C Alcohol Use Questionnaire (AUDIT-C) 1. How often do you have a drink containing alcohol?: Never 3. How often do you have six or more drinks on one occasion?: Never Total Score: 0 Score Reviewed/Action Taken: No MINESH-7 AMB Questionnaire MINESH-7 Date MINESH - 7 assessed: 06/07/21 Source: Developed by Drs. Sree Barnes, Kasia Estevez, Juan Manuel Bergman and colleagues, with an educational paul from [employer]. Review of Systems Const Denies chills and Denies fever(s) Eyes Denies blurry vision ENT Denies vertigo, Denies dizziness and Denies sore throat Card Denies chest pain at rest, Denies chest pain with activity, Denies diaphoresis, Denies dyspnea and Denies dyspnea on exertion Resp Denies cough, Denies dyspnea, Denies dyspnea on exertion and Denies wheezing GI Denies abdominal pain, Denies melena, Denies hematochezia, Denies constipation, Denies diarrhea and Denies loose stools Denies hematuria Musc Denies numbness and Denies tingling Skin/Breast Denies lesions Neuro Denies vertigo, Denies dizziness, Denies numbness and Denies tingling Psych Denies anxiety, Denies depression, Denies homicidal ideation, Denies suicidal ideation and Denies other (substance abuse) Aller/Immun Denies wheezing Physical exam (Primary Care) Vital Signs: Last Vital Signs Pulse 78 03/26/23 11:22 BP 122/80 03/26/23 11:22 Pulse Ox 98 03/26/23 11:22 Oxygen Delivery Method Room Air 03/26/23 11:22 BMI result Body Mass Index 34.7 Tobacco/Smoking Status: Tobacco use Status Tobacco use date assessed 03/26/23 03/26/23 11:26 Patient Tobacco Use Status Current everyday Tobacco 03/26/23 11:17 e-Cigarette/Vaping Use Never Used 03/26/23 11:17 Thrive Assessment: Date of Thrive Assessment Date Thrive assessed 06/07/21 03/26/23 11:17 Const General: cooperative Nutritional Appearance: obese Orientation/consciousness: patient oriented x3 HENMT Head: Yes normal to inspection, Yes normocephalic and Yes atraumatic Ears: TM's normal bilaterally Eyes General: appearance normal, both eyes and all related structures Alignment and Position: alignment normal and position normal Neck Neck: Yes normal visual inspection and Yes no lymphadenopathy Thyroid: Thyroid normal Resp Effort & Inspection: normal respiratory effort Auscultation: clear to auscultation bilaterally Cardio Rate: regular rate Rhythm: regular rhythm Heart sounds: S1 normal heart sound present, S2 normal heart sound present and no murmurs GI Palpation (GI): Soft to palpation and nontender Auscultation: normal bowel sounds Skin Rashes: no rashes Neuro General: patient oriented x3, moves all extremities, no focal motor deficits and deep tendon reflexes 2+ bilaterally Romberg Test: Negative Extrem Other: bilat feet: + sensation with use of monofilament Psych Appearance: grossly normal Mental Status: mental status grossly normal Speech and movement: Normal speech and movement present Affect: normal affect Attitude: cooperative Thought process: Normal thought process present Thought content: Normal thought content present Insight: Good insight present (Psych) Judgement: Good judgement present (Psych) Results AMB Hemoglobin A1c AMB Hemoglobin A1c 7.7 % Last Edit by AMNA Zamora on 03/26/23 11 :42 Immunizations pneumoc 20-herson conj-dip cr(PF) 0.5 mL IM syringe Performing Provider: SHERLY Islas Performing Location: [facility] [place] [facility] Administered by: Ani Herrera CMA on 03/26/23 11:52 Dose Route Admin Location Dispensed Lot Number Expiration Date NDC Internal Grinder Set Up Operator 0.5 mL IM Right Deltoid 0.5 mL [id number] 04/02/24 7382-1388-19 [employer]YETH/PFIZER VIS Given Date VIS Provided VIS Publication Date 03/26/23 Single Vaccine 21 Eligibility Eligibility Date Funding Source Not VF Eligible 03/26/23 Private Results Reviewed Results Reviewed: Laboratory Last Values Hgb A1c (Clinic) 7.7 % (4.0-6.0) H 03/26/23 11:39 Assessment and Plan Assessment & Plan (1) Diabetes: Code(s): E11.9 - Type 2 diabetes mellitus without complications Plan: Labs ordered (2) Screening for colon cancer: Code(s): Z12.11 - Encounter for screening for malignant neoplasm of colon Plan: Referred to GI (3) Screening-pulmonary TB: Code(s): Z11.1 - Encounter for screening for respiratory tuberculosis (4) Physical exam: Code(s): Z00.00 - Encounter for general adult medical examination without abnormal findings Plan The patient agreed to the use of a medical certification specialist for this encounter. Scribed for SHERLY Baca by Teresa Muñoz medical certification specialist, on 03/26/2023 at 11:35 EST Orders: Orders TSH reflex Free T4 Today E11.9 - Type 2 diabetes mellitus without complications Lipid Panel Today E11.9 - Type 2 diabetes mellitus without complications Microalbumin, Random (w Creat) Today E11.9 - Type 2 diabetes mellitus without complications T Spot TB Today Z11.1 - Encounter for screening for respiratory tuberculosis Complete Blood Count Auto Diff Today E11.9 - Type 2 diabetes mellitus without complications Comprehensive [place]. Panel Fast Today E11.9 - Type 2 diabetes mellitus without complications UA CC w/rflx Micro + Cult Today E11.9 - Type 2 diabetes mellitus without complications AMB Hemoglobin A1c Today Z13.9 - Encounter for screening, unspecified Pneumococcal 20 Immunization Today Z23 - Encounter for immunization Referrals Gastroenterology Referral Z12.11 - Encounter for screening for malignant neoplasm of colon Medications: New semaglutide (Ozempic) for 4 weeks 0.25 mg (0.368 mL) subcut QWEEK 3 mL 0RF Coding Level of Care Code Est Pt Prev Care 40-64y(31294) Diagnoses Diabetes E11.9 Screening for colon cancer Z12.11 Screening-pulmonary TB Z11.1 Physical exam Z00.00
[2023-03-26 11:22] VITALS: BP 122/80; PULSE 78; O2SAT 98; BMI 34.7
== END 2023-03-26 11:53 | disposition home or self-care (01) ==
PROVIDERS: Visit Provider Nurse Practitioner Family
DX: Z00.00 Encounter for general adult medical examination without abnormal findings (principal); E11.9 Type 2 diabetes mellitus without complications; Z11.1 Encounter for screening for respiratory tuberculosis; Z23 Encounter for immunization
CPT/HCPCS: 83036; 90471; 90677; 99396

== ENCOUNTER 2023-03-27 06:25 | Outpatient (REF) | payer OTHER, SELFPAY ==
[2023-03-27 06:36] LABS: MANUAL DIFF FLAG NO
[2023-03-27 07:18] LABS: Basophils Percent Auto 0.3 % (0-2); Eosinophils Absolute Auto 0.1 X10*3/uL (0.0-0.4); Eosinophils Percent Auto 1.3 % (0-4); Hematocrit 38.4 % (37.0-47.0); Hemoglobin 12.8 g/dl (12.0-16.0); Imm Gran Abs Auto 0.03 X10*3/uL (0.00-0.03); Imm Gran Pct Auto 0.4 % (0.0-0.4); Lymphocytes Absolute Auto 2.4 X10*3/uL (1.2-4.9); Mean Corpuscular HGB Conc 33.3 g/dl (31.0-35.0); Mean Corpuscular Hemoglobin 29.7 pg (27.0-33.0); Mean Corpuscular Volume 89.1 fL (80.0-98.0); Mean Platelet Volume 10.9 fL (9.4-12.3); Monocytes Absolute Auto 0.5 X10*3/uL (0.1-1.2); Monocytes Percent Auto 6.7 % (2-11); Neutrophils Absolute Auto 4.7 x10*3/uL (2.0-8.3); Neutrophils Percent Auto 60.3 % (45-73); Platelet Count 313 X10*3/uL (160-400); Red Blood Count 4.31 X10*6/uL (4.20-5.50); Red Cell Distribution Width 12.9 % (11.0-16.0); White Blood Count 7.8 X10*3/uL (4.8-10.8)
[2023-03-27 07:49] LABS: Alanine Aminotransferase 23 U/L (0-31); Albumin Level 3.9 g/dL (3.5-5.0); Alkaline Phosphatase 55 U/L (39-117); Anion Gap 12 (12-20); Aspartate Amino Transferase 15 U/L (5-31); Bilirubin Total 0.4 mg/dL (0.0-1.0); Blood Urea Nitrogen 12 mg/dL (9-16); Calcium 9.1 mg/dL (8.4-10.2); Carbon Dioxide 22 mmol/L (22-29); Chloride 108 mmol/L (96-108); Cholesterol 175 mg/dL (<200); Estimated Glomerular Filt Rate > 60; Glucose Fasting 128 mg/dL (60-99); HDL Cholesterol 48 mg/dL (>40); LDL Cholesterol Calculated 107 mg/dL (<100); Potassium 3.9 mmol/L (3.3-5.1); Sodium 138 mmol/L (135-145); Triglycerides 104 mg/dL (<150)
[2023-03-27 08:06] LABS: TSH reflex Free T4 1.13 uIU/mL (0.32-4.0)
[2023-03-27 08:22] LABS: Appearance Urine Clear; Color Urine Yellow; Glucose Urine UA Negative (Negative); Leukocyte Esterase Urine Trace (Negative); Nitrite Urine Negative (Negative); PH 5.5 (5.0-9.0); UMIC TRIGGER UACC YES; Urine Blood Negative (Negative); Urine Ketones Negative (Negative); Urine Protein Negative (Neg-Trace)
[2023-03-27 08:27] LABS: Bacteria Urine 2+ (None Seen); Hyaline Casts Urine 0-2 /LPF (0-2); RBC Urine 0-2 /HPF (0-2); Squamous Epithelial Cell Urine 0-2 /HPF (0-2); UACC Culture Trigger YES
[2023-03-27 08:36] LABS: Creatinine Urine 134.72 mg/dL; Microalbum/Creatinine Ratio Ur 10.3 ug/mg cr (<30)
[2023-03-29 22:23] LABS: TS Negative Control Passed; TS Panel A 0; TS Panel B 0; TS Positive Control Passed; TSpotTB Negative (Negative)
== END 2023-03-27 06:26 | disposition home or self-care (01) ==
LOC: HO.LAB 06:25
PROVIDERS: PCP Nurse Practitioner Family; Visit Provider Nurse Practitioner Family
DX: Z11.1 Encounter for screening for respiratory tuberculosis (principal); E11.9 Type 2 diabetes mellitus without complications; R82.90 Unspecified abnormal findings in urine
CPT/HCPCS: 36415; 80053; 80061; 81001; 82043; 82570; 84443; 85025; 86481; 87086; 87088; 87186

== ENCOUNTER 2023-04-16 08:57 | Outpatient (AMB) | payer OTHER, SELFPAY ==
--- NOTE | 2023-04-16 09:06 | A.OFFVIS_ITS ---
Intake Vital Signs 04/16/23 09:09 Height 5 ft 8 in Weight 225 lb BMI 34.2 BP 140/79 H Blood Pressure Location Lt brachial Position Sitting Pulse 96 Intake Visit Reasons: Colonoscopy Screening Intake Note: Patient new consult for 2nd pre colonoscopy screening. Patient cc: acid reflex on and off, denies other any GI issues. Dry Wall Nailer Required: No Accompanied by: Self / Same As Patient Allergies No Known Allergies [No Known Allergies*] Allergy (Verified 04/16/23 09:04) Medication List - Last Reconciled 04/16/23 by Izzy Jacobson PA-C albuterol sulfate 90 mcg/actuation (Ventolin HFA) 1 inh inhalation QID PRN alcohol swabs (Alcohol Prep Pads) 1 pad topical DAILY atorvastatin 10 mg PO BEDTIME blood sugar diagnostic (FreeStyle Lite Strips) 1 strip miscellaneous twice a day; 30 days blood-glucose meter (FreeStyle Lite Meter kit) As directed ibuprofen 800 mg PO BID PRN 30 days lancets (FreeStyle Lancets) 28 gauge miscellaneous twice a day testing; twice a day testing 30 days lisinopril 2.5 mg PO DAILY [id number]-bkyphzmr-frzwdm 1 tab PO DAILY nitrofurantoin macrocrystal 100 mg PO BID 5 days semaglutide (Ozempic) 0.25 mg (0.368 mL) subcut QWEEK sumatriptan succinate 50 mg PO ONCE PRN 30 days HPI HPI Comments History of Present Illness Details A 52 y/o female referred for colonoscopy-hx colon polyps- 2019- Dr. Galvan Large hemorrhoids, part of life - diverticulosis-has never had issues with diverticulitis Appetite is good Bowels are normal No cardiac or respiratory issues Works 2 jobs No nausea, vomiting, hematemesis, hematochezia fever chills PFSH Medical History HTN (hypertension) Sjogrens syndrome Surgical History H/O tubal ligation History of foot surgery H/O LEEP Family History Father No problems noted. Mother HTN (hypertension) IDDM (insulin dependent diabetes mellitus) Breast cancer Maternal Grandmother History of heart attack Breast cancer Maternal Grandfather History of heart attack Diabetes mellitus Paternal Grandfather No problems noted. Paternal Grandmother No problems noted. Maternal Aunt Cancer Maternal Uncle Lung cancer Smoker Brother No problems noted. Brother No problems noted. Brother No problems noted. Brother No problems noted. Son No problems noted. Son No problems noted. Daughter Healthy female Daughter Healthy female Social History Housing: House Alcohol intake: never Patient Tobacco Use Status: Current everyday Tobacco user Cigarette Packs Per Day: 1 e-Cigarette/Vaping Use: Never Used Second Hand Smoke Exposure: No Current occupational status: employed Cognitive needs: No Hearing needs: No Vision needs: No Female Reproductive History Menstrual Age of Menarche: 12 Review of Systems Const All systems reviewed & are unremarkable except as noted in HPI and below Card Denies chest pain and Denies dyspnea Resp Denies dyspnea GI Denies abdominal pain, Denies heartburn, Denies nausea and Denies vomiting Physical Exam Vital Signs: Last Vital Signs Pulse 96 04/16/23 09:09 BP 140/79 H 04/16/23 09:09 BMI result Body Mass Index 34.2 Const General: cooperative, healthy appearing, comfortable and no acute distress Orientation/consciousness: patient oriented x3 Limitations: no limitations Eyes Sclerae: sclerae normal Resp Effort & Inspection: normal respiratory effort and able to speak in complete sentences Auscultation: clear to auscultation bilaterally, no rales, no rhonchi and no wheezes Cardio Rate: regular rate Rhythm: regular rhythm Heart sounds: S1 normal heart sound present and S2 normal heart sound present GI Palpation (GI): Soft to palpation and nontender Auscultation: normal bowel sounds Skin General skin exam: no rashes or lesions noted Neuro General: patient oriented x3 Extrem General: Yes full ROM Psych Appearance: grossly normal and well kempt Mental Status: mental status grossly normal Speech and movement: Clear speech present Affect: normal affect Attitude: cooperative Thought process: Normal thought process present Thought content: Normal thought content present Judgement: Limited judgement present (Psych) Assessment & Plan Assessment & Plan (1) History of colon polyps: Comment: A 52 y/o F- non compliant- with medications -lengthy a discussion -benefit risk ratio Hx adenomas-due for screening colonoscopy Reviewed medication list patient admits she is not taking any medications, alex thy discussion to include benefit risk ratio certainly with antihypertensive to include stroke Code(s): Z86.010 - Personal history of colonic polyps Plan: Polyp surveillance colonoscopy (2) Hemorrhoids: Comment: Large hemorrhoids, declined surgical referral due to COpay Declines hydrocortisone due to cost- Code(s): K64.9 - Unspecified hemorrhoids Plan: Maintain high-fiber diet Avoid straining Rectal cream-declined (3) Diverticulosis of colon: Code(s): K57.30 - Diverticulosis of large intestine without perforation or abscess without bleeding Plan: ER protocol maintain high-fiber diet Plan Polyp surveillance colonoscopy MiraLax Gatorade prep Please do not schedule follow-up visit Patient will call for results (to to co-pay) Orders: Orders Colonoscopy - GI Use Only Today K57.30 - Diverticulosis of large intestine without perforation or abscess without bleeding, Z86.010 - Personal history of colonic polyps Medications: New bisacodyl (Dulcolax (bisacodyl)) Day before procedure, prep day Take 4 tablets by mouth upon awakening followed by large glass of water 20 mg (4 x 5 mg) PO ONCE 1 day 4 tabs 0RF colonoscopy prep Z12.11 - Encounter for screening for malignant neoplasm of colon polyethylene glycol 3350 (Miralax) Take as directed by mouth the day before your procedure. 238 grams PO ONCE 1 day PRN 238 grams 0RF laxative effect Patient Instructions: Polyp surveillance colonoscopy MiraLax Gatorade prep-literature given Maintain high-fiber diet Avoid straining Call with any questions or concerns Call if she reconsiders-hemorrhoidal refer or cream The encouraged patient to follow-up with PCP to discuss medications Coding Level of Care Code New Pt Level 4 (72284) Diagnoses History of colon polyps Z86.010 Hemorrhoids K64.9 Diverticulosis of colon K57.30 Time Spent (min) 30
[2023-04-16 09:09] VITALS: BP 140/79; PULSE 96; BMI 34.2
== END 2023-04-16 10:02 | disposition home or self-care (01) ==
PROVIDERS: PCP Nurse Practitioner Family; Visit Provider Physician Assistant
DX: Z86.010 Personal history of colon polyps (principal); K64.9 Unspecified hemorrhoids; K57.30 Diverticulosis of large intestine without perforation or abscess without bleeding
CPT/HCPCS: 99204

== ENCOUNTER → 2023-04-16 08:57 | Outpatient (BNVA) | payer OTHER, SELFPAY | PROVIDERS: PCP Nurse Practitioner Family; Visit Provider Physician Assistant ==

== ENCOUNTER 2023-04-19 11:21 | Outpatient (REF) | payer OTHER, SELFPAY ==
[2023-04-20 04:58] LABS: CT PCR NOT DETECTED (Not Detect.); NG PCR NOT DETECTED (Not Detect.)
[2023-04-20 13:30] LABS: BV Int Neg Control Negative (Negative); BV Int Pos Control Positive (Positive)
== END 2023-04-19 11:22 | disposition home or self-care (01) ==
LOC: HO.LNP 11:21
PROVIDERS: Visit Provider Advanced Practice Midwife
DX: Z01.411 Encounter for gynecological examination (general) (routine) with abnormal findings (principal); E11.9 Type 2 diabetes mellitus without complications; L85.3 Xerosis cutis; M54.9 Dorsalgia, unspecified; N95.1 Menopausal and female climacteric states; Z11.3 Encounter for screening for infections with a predominantly sexual mode of transmission
CPT/HCPCS: 0353U; 87480; 87510; 87660

== ENCOUNTER 2023-04-19 11:21 | Outpatient (AMB) | payer OTHER, SELFPAY ==
--- NOTE | 2023-04-19 11:26 | MHC.OFFVIS ---
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 Suit Attendant Required: No Information Interpreted: non-clinical & clinical Compliance Examiner: Compliance Examiner Present (Aidyn) Allergies Sulfa (Sulfonamide Antibiotics) Allergy (Mild, Verified 04/19/23 11:30) itchy Medication List - Last Reconciled 04/19/23 by Amparo Graham CNM albuterol sulfate 90 mcg/actuation (Ventolin HFA) 1 inh inhalation QID PRN alcohol swabs (Alcohol Prep Pads) 1 pad topical DAILY atorvastatin 10 mg PO BEDTIME bisacodyl (Dulcolax (bisacodyl)) 20 mg (4 x 5 mg) PO ONCE 1 day blood sugar diagnostic (FreeStyle Lite Strips) 1 strip miscellaneous twice a day; 30 days blood-glucose meter (FreeStyle Lite Meter kit) As directed ibuprofen 800 mg PO BID PRN 30 days lancets (FreeStyle Lancets) 28 gauge miscellaneous twice a day testing; twice a day testing 30 days lisinopril 2.5 mg PO DAILY xepljnadmdsd-gozigdzv-osstlp 1 tab PO DAILY polyethylene glycol 3350 (Miralax) 238 grams PO ONCE PRN 1 day sumatriptan succinate 50 mg PO ONCE PRN 30 days Is last menstrual period known: Yes Last menstrual period: 12/14/22 Post menopausal: No HPI AIR[employer] MECH[employer]IC annual exam HPI Details 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 She is in discussions with her primary care provider about what to do about her diabetes she is very clear that she does not want to take metformin and she had agreed to take an injectable treatment but now her insurance is giving her problem about it. She has working hard to be good about her diet she does get sufficient protein and vegetables however she does like rice. It is difficult to find time for exercise she just started another job. She has lots of family responsibility so it is hard She does have lots of back pain but it is hard to find time to do anything about it She also has what appears to be very dry skin that can be very itchy at times. She does get extreme reactions to things like mosquito bites in the summer and anything can cause her to itch. [facility] Medical History Sjogrens syndrome HTN (hypertension) Surgical History H/O tubal ligation History of foot surgery H/O LEEP Family History Father No problems noted. Mother HTN (hypertension) IDDM (insulin dependent diabetes mellitus) Breast cancer Maternal Grandmother History of heart attack Breast cancer Maternal Grandfather History of heart attack Diabetes mellitus Paternal Grandfather No problems noted. Paternal Grandmother No problems noted. Maternal Aunt Cancer Maternal Uncle Lung cancer Smoker Brother No problems noted. Brother No problems noted. Brother No problems noted. Brother No problems noted. Son No problems noted. Son No problems noted. Daughter Healthy female Daughter Healthy female Social History Housing: House Alcohol intake: never Patient Tobacco Use Status: Current everyday Tobacco user Cigarette Packs Per Day: 1 e-Cigarette/Vaping Use: Never Used Second Hand Smoke Exposure: No Current occupational status: employed Cognitive needs: No Hearing needs: No Vision needs: No Female Reproductive History Menstrual Age of Menarche: 12 Date of last menstrual period: 12/14/22 control method: other (tubal ligation) Total pregnancies: 5 Full term: 4 Number of Living Children: 4 Ab spontaneous: 1 Date of last pap smear: 04/20/22 (negative) History of abnormal pap smear: Yes (1999 NADIA 1, 1995 1994 ASCUS) Date of Mammogram: 03/22/23 Physical Exam Vital Signs: Last Vital Signs BP 138/88 04/19/23 11:27 BMI result Body Mass Index 34.7 Const Other: Patient moving with some obvious lower back pain when trying to lie flat for exam and then sit up General: healthy appearing, comfortable, no acute distress, well developed and alert Nutritional Appearance: average body habitus and obese Orientation/consciousness: patient oriented x3 Limitations: no limitations HEENT Head: Yes normocephalic Neck Neck: Yes normal visual inspection Thyroid: Thyroid normal Chest Chest palpation & inspection: normal inspection of the chest Breast/axilla inspection: normal inspection of the breasts and normal inspection of the axillae Breast/axilla palpation: normal palpation of the breasts and normal palpation of the axillae Resp Effort & Inspection: normal respiratory effort GI Inspection: Yes normal to inspection, No Abdominal wall edema and No distended Palpation (GI): Soft to palpation and nontender Other: External exam within normal limits vagina pink and moist cervix multiparous with evidence of previous procedures to her cervix many years ago last abnormal Paps greater than 20 years. Uterus is anteverted to midposition, cervix nontender uterus nontender mobile adnexa nontender good tone with Kegel. General: Yes bladder normal to palpation External Female Exam: normal external appearance and normal appearance of the urethra Speculum Exam - Vagina: normal appearance of the vagina, normal palpation and normal vaginal discharge Speculum Exam - Cervix: normal appearance of the cervix, normal palpation and nontender Bimanual exam- vagina & uterus: normal bimanual exam, normal palpation, uterine size normal, bladder normal to palpation, consistency normal, normal palpation, uterine mobility normal, uterine shape normal, No Cervical tenderness present, non-tender and no cervical motion tenderness Bimanual Exam- Adnexa, other: normal adnexae, no masses, normal and No adnexal tenderness Skin Other: Evidence of shaving she states quite a while back some scarring from possible eczema on shins and from previous mosquito bites. Neuro General: patient oriented x3 Assessment & Plan Assessment & Plan (1) H/O LEEP: Comment: many years ago; 04/19/22 pap= neg w neg hpv Code(s): Z98.890 - Other specified postprocedural states (2) Encounter for gynecological examination with Papanicolaou smear of cervix: Code(s): Z01.419 - Encounter for gynecological examination (general) (routine) without abnormal findings (3) Screen for sexually transmitted diseases: Code(s): Z11.3 - Encounter for screening for infections with a predominantly sexual mode of transmission (4) Newly diagnosed diabetes: Code(s): E11.9 - Type 2 diabetes mellitus without complications (5) Body mass index [BMI] 35.0-35.9, adult: Code(s): Z68.35 - Body mass index [BMI] 35.0-35.9, adult (6) Dry skin dermatitis: Code(s): L85.3 - Xerosis cutis (7) Back pain: Code(s): M54.9 - Dorsalgia, unspecified (8) Perimenopause: Code(s): N95.1 - Menopausal and female climacteric states Plan -----Discussed in this visit the following: healthy balanced diet, regular and consistent exercise, getting recommended health screens, doing the best she can for her particular health concerns, kegel exercises, pap smear screening and followup recommendations, mammography screening and SBE, normal changes in cycles in her life stage--- . She recently had her mammogram and says she is getting yearly mammograms at this point Her last abnormal Pap smears were over 20 years ago anything more recent were negative according to walk could be found Pap was not due this yr -discussed her back pain suggested some stretches it she might want to consider she does not really even have time in her life for any PT -discussed the challenges with diet and eating and protein and carbs and greens. She is working hard at it but it is very challenging could she does like rice and it is a staple in her family's diet even with included beans and protein and many vegetables in it. Hopefully she will be able to try the new medication and that may be able to help. 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 Testing for infections done with pelvic exam just to be on the safe side. Suggested the following for her skin care: I reviewed dry skin care in detail including my recommendations for trying to not take showers that are too hot, and to apply a skin cream such as Eucerin, or equivalent, immediately after briefly towel, drying after coming out of the shower to seal in the moisture. I recommend that if she feels her skin start to tingle and dry up before she has had a chance to thoroughly apply the cream all over, she should jump back in the shower to re wet her skin, and start the process over again. The goal is to help seal in the moisture on her skin lacho, by using the Eucerin as a protectant. I recommend not to skip this procedure for even 1 shower cycle during the dry winter season. Reviewed what to expect in these joshua menopausal years. Orders: Orders CT NG by PCR Today Z11.3 - Encounter for screening for infections with a predominantly sexual mode of transmission Bacterial Vaginosis Panel Today Z11.3 - Encounter for screening for infections with a predominantly sexual mode of transmission Coding Level of Care Code Est Pt Prev Care 40-64y(91990) Diagnoses H/O LEEP Z98.890 Encounter for gynecological examination with Papanicolaou smear of cervix Z01.419 Screen for sexually transmitted diseases Z11.3 Newly diagnosed diabetes E11.9 Body mass index [BMI] 35.0-35.9, adult Z68.35 Dry skin dermatitis L85.3 Back pain M54.9 Perimenopause N95.1
[2023-04-19 11:27] VITALS: BP 138/88; BMI 34.7
== END 2023-04-19 12:12 | disposition home or self-care (01) ==
PROVIDERS: Visit Provider Advanced Practice Midwife
DX: Z01.419 Encounter for gynecological examination (general) (routine) without abnormal findings (principal); Z98.890 Other specified postprocedural states; Z11.3 Encounter for screening for infections with a predominantly sexual mode of transmission; E11.9 Type 2 diabetes mellitus without complications; Z68.35 Body mass index [BMI] 35.0-35.9, adult; L85.3 Xerosis cutis; M54.9 Dorsalgia, unspecified; N95.1 Menopausal and female climacteric states
CPT/HCPCS: 99396

== ENCOUNTER 2023-08-27 08:15 | Outpatient (REF) | payer OTHER, SELFPAY ==
[2023-08-27 08:39] LABS: MANUAL DIFF FLAG NO
[2023-08-27 09:07] LABS: Estimated Average Glucose 146 mg/dL; Hemoglobin A1c % 6.7 % (<6.0)
[2023-08-27 09:08] LABS: Appearance Urine Cloudy; Color Urine Yellow; Glucose Urine UA Negative (Negative); Leukocyte Esterase Urine Negative (Negative); Nitrite Urine Negative (Negative); PH 5.5 (5.0-9.0); Specific Gravity - Urine 1.025 (1.005-1.025); Urine Blood Negative (Negative); Urine Ketones Negative (Negative); Urine Protein Negative (Neg-Trace)
[2023-08-27 09:14] LABS: Bacteria Urine 4+ (None Seen); Hyaline Casts Urine 0-2 /LPF (0-2); RBC Urine 0-2 /HPF (0-2); Squamous Epithelial Cell Urine >20 /HPF (0-2); WBC Urine 0-5 /HPF (0-5)
[2023-08-27 09:31] LABS: Alanine Aminotransferase 24 U/L (0-31); Alkaline Phosphatase 53 U/L (39-117); Anion Gap 11 (12-20); Aspartate Amino Transferase 15 U/L (5-31); Bilirubin Total 0.4 mg/dL (0.0-1.0); Blood Urea Nitrogen 13 mg/dL (9-16); Calcium 9.2 mg/dL (8.4-10.2); Carbon Dioxide 25 mmol/L (22-29); Chloride 107 mmol/L (96-108); Cholesterol 152 mg/dL (<200); Estimated Glomerular Filt Rate > 60; Glucose Fasting 137 mg/dL (60-99); HDL Cholesterol 44 mg/dL (>40); LDL Cholesterol Calculated 85 mg/dL (<100); Potassium 3.9 mmol/L (3.3-5.1); Sodium 139 mmol/L (135-145); Triglycerides 119 mg/dL (<150)
[2023-08-27 09:40] LABS: Basophils Percent Auto 0.5 % (0-2); Eosinophils Absolute Auto 0.1 X10*3/uL (0.0-0.4); Eosinophils Percent Auto 2.3 % (0-4); Hematocrit 40.2 % (37.0-47.0); Hemoglobin 13.3 g/dl (12.0-16.0); Imm Gran Abs Auto 0.02 X10*3/uL (0.00-0.03); Imm Gran Pct Auto 0.3 % (0.0-0.4); Lymphocytes Absolute Auto 2.5 X10*3/uL (1.2-4.9); Lymphocytes Percent Auto 39.5 % (20-40); Mean Corpuscular HGB Conc 33.1 g/dl (31.0-35.0); Mean Corpuscular Hemoglobin 29.7 pg (27.0-33.0); Mean Corpuscular Volume 89.7 fL (80.0-98.0); Mean Platelet Volume 10.8 fL (9.4-12.3); Monocytes Absolute Auto 0.4 X10*3/uL (0.1-1.2); Monocytes Percent Auto 6.5 % (2-11); Neutrophils Absolute Auto 3.2 x10*3/uL (2.0-8.3); Neutrophils Percent Auto 50.9 % (45-73); Platelet Count 291 X10*3/uL (160-400); Red Blood Count 4.48 X10*6/uL (4.20-5.50); Red Cell Distribution Width 13.2 % (11.0-16.0); White Blood Count 6.2 X10*3/uL (4.8-10.8)
[2023-08-27 09:47] LABS: TSH reflex Free T4 0.94 uIU/mL (0.32-4.0)
== END 2023-08-27 08:16 | disposition home or self-care (01) ==
LOC: HO.LAB 08:15
PROVIDERS: PCP Nurse Practitioner Family; Visit Provider Nurse Practitioner Family
DX: R82.90 Unspecified abnormal findings in urine (principal); E11.9 Type 2 diabetes mellitus without complications
CPT/HCPCS: 36415; 80053; 80061; 81001; 81003; 83036; 84443; 85025; 87086

== ENCOUNTER 2023-09-03 08:05 | Outpatient (AMB) | payer OTHER, SELFPAY ==
--- NOTE | 2023-09-03 08:16 | MHC.PC.OV ---
Vital Signs 09/03/23 08:21 Height 5 ft 8 in Weight 227 lb BMI 34.5 BP 124/80 Blood Pressure Location Rt brachial Position Sitting Pulse 88 Pulse Source Pulse Oximeter Pulse Oximetry (%) 98 Oxygen Delivery Method Room Air Intake Visit Reasons: F/U W/LABS Intake Note: Patient here to follow up on labs and diabetes. needs refill on ozempic Allergies Sulfa (Sulfonamide Antibiotics) Allergy (Mild, Verified 09/03/23 09:21) itchy Medication List - Last Reconciled 09/03/23 by Obed Bermeo, GAS WELL DRILLING MANAGER- albuterol sulfate 90 mcg/actuation (Ventolin HFA) 1 inh inhalation QID PRN alcohol swabs (Alcohol Prep Pads) 1 pad topical DAILY atorvastatin 10 mg PO BEDTIME bisacodyl (Dulcolax (bisacodyl)) 20 mg (4 x 5 mg) PO ONCE 1 day blood sugar diagnostic (FreeStyle Lite Strips) 1 strip miscellaneous twice a day; blood-glucose meter (FreeStyle Lite Meter kit) As directed ibuprofen 800 mg PO BID PRN 30 days lancets (FreeStyle Lancets) 28 gauge miscellaneous twice a day testing; twice a day testing losartan 25 mg PO DAILY meloxicam 15 mg PO DAILY zhtlrxnczhgh-lgdkzjwn-ewfbqu 1 tab PO DAILY polyethylene glycol 3350 (Miralax) 238 grams PO ONCE PRN 1 day semaglutide (Ozempic) 0.5 mg (0.736 mL) subcut QWEEK sumatriptan succinate 50 mg PO ONCE PRN 30 days turmeric root extract 1,000 mg PO DAILY Tobacco use date assessed: 09/03/23 Dental Screening Dental Screen Date: 09/03/23 Did you have a dental visit in the last 12 months?: No Did you have a dental problem in the last 6 months where you did not have access to dental care?: No Was dental information given to patient?: No HPI F/U W/LABS HPI Details Pt is a diabetic, on an ARB and a statin. Last A1C was 6.7, microalbumin is up to date. Denies polyuria, polydipsia, does report neuropathy. Pt denies any signs and symptoms of hypoglycemia and does know how to correct it. eye exam is up to date. Pt is checking her blood sugar intermittently. Will increase ozempic. Pt reports neuropathy and weakness to her BLE. She reports a burning sensation. Will refer to neurology. [facility] Medical History NUNO (obstructive sleep apnea) Sjogrens syndrome HTN (hypertension) Surgical History H/O tubal ligation History of foot surgery H/O LEEP Family History Father No problems noted. Mother HTN (hypertension) IDDM (insulin dependent diabetes mellitus) Breast cancer Maternal Grandmother History of heart attack Breast cancer Maternal Grandfather History of heart attack Diabetes mellitus Paternal Grandfather No problems noted. Paternal Grandmother No problems noted. Maternal Aunt Cancer Maternal Uncle Lung cancer Smoker Brother No problems noted. Brother No problems noted. Brother No problems noted. Brother No problems noted. Son No problems noted. Son No problems noted. Daughter Healthy female Daughter Healthy female Social History Housing: House Alcohol intake: never Patient Tobacco Use Status: Current everyday Tobacco user Cigarette Packs Per Day: 1 e-Cigarette/Vaping Use: Never Used Second Hand Smoke Exposure: No Current occupational status: employed Cognitive needs: No Hearing needs: No Vision needs: No Female Reproductive History Menstrual Age of Menarche: 12 Questionnaire Thrive Questionnaire Date Thrive assessed: 06/07/21 AUDIT C Alcohol Use Questionnaire (AUDIT-C) 1. How often do you have a drink containing alcohol?: Monthly or less 2. How many drinks containing alcohol do you have on a typical day when you are drinking?: 1 or 2 3. How often do you have six or more drinks on one occasion?: Never Total Score: 1 Score Reviewed/Action Taken: No MINESH-7 AMB Questionnaire MINESH-7 Date MINESH - 7 assessed: 06/07/21 Source: Developed by Drs. Sree Barnes, Kasia Estevez, Juan Manuel Bergman and colleagues, with an educational paul from [employer]. Review of Systems Const Reports as per HPI Physical exam (Primary Care) Vital Signs: Last Vital Signs Pulse 88 09/03/23 08:21 BP 124/80 09/03/23 08:21 Pulse Ox 98 09/03/23 08:21 Oxygen Delivery Method Room Air 09/03/23 08:21 BMI result Body Mass Index 34.5 Tobacco/Smoking Status: Tobacco use Status Tobacco use date assessed 09/03/23 09/03/23 08:26 Patient Tobacco Use Status Current everyday Tobacco 09/03/23 08:18 e-Cigarette/Vaping Use Never Used 09/03/23 08:18 Thrive Assessment: Date of Thrive Assessment Date Thrive assessed 06/07/21 09/03/23 08:18 Const General: cooperative Nutritional Appearance: obese Orientation/consciousness: patient oriented x3 Resp Effort & Inspection: normal respiratory effort Auscultation: clear to auscultation bilaterally Cardio Rate: regular rate Rhythm: regular rhythm Heart sounds: S1 normal heart sound present and S2 normal heart sound present Neuro Other: finger to thumb intact, heel to vazquez intact, negative arm pull test General: patient oriented x3 and CN's II-XI intact bilaterally Extrem Other: bilat feet: + sensation with use of monofilament, feet intact Psych Appearance: grossly normal Mental Status: mental status grossly normal Speech and movement: Normal speech and movement present Affect: normal affect Attitude: cooperative Thought process: Normal thought process present Thought content: Normal thought content present Insight: Good insight present (Psych) Judgement: Good judgement present (Psych) Assessment and Plan Assessment & Plan (1) Weakness of both lower extremities: Code(s): R29.898 - Other symptoms and signs involving the musculoskeletal system Plan: Referred to neurology (2) Numbness: Code(s): R20.0 - Anesthesia of skin Plan: Referred to neurology (3) Neuropathy: Code(s): G62.9 - Polyneuropathy, unspecified Plan: Referred to neurology (4) Diabetes: Code(s): E11.9 - Type 2 diabetes mellitus without complications Plan The patient agreed to the use of a director medical affairs for this encounter. Scribed for SHERLY Baca by Teresa Muñoz director medical affairs, on 09/03/2023 at 08:40 EST. Orders: Referrals Neurology Referral G62.9 - Polyneuropathy, unspecified, R20.0 - Anesthesia of skin, R29.898 - Other symptoms and signs involving the musculoskeletal system Medications: Changed From semaglutide (Ozempic) for 4 weeks 0.5 mg (0.736 mL) subcut QWEEK 3 mL 0RF To semaglutide for 4 weeks 1 mg (0.75 mL) subcut QWEEK 3 mL 0RF Coding Level of Care Code Est Pt Level 3 (94399) Diagnoses Weakness of both lower extremities R29.898 Numbness R20.0 Neuropathy G62.9 Diabetes E11.9
[2023-09-03 08:21] VITALS: BP 124/80; PULSE 88; O2SAT 98; BMI 34.5
== END 2023-09-03 09:00 | disposition home or self-care (01) ==
PROVIDERS: PCP Nurse Practitioner Family; Visit Provider Nurse Practitioner Family
DX: E11.42 Type 2 diabetes mellitus with diabetic polyneuropathy (principal); R29.898 Other symptoms and signs involving the musculoskeletal system; R20.0 Anesthesia of skin; G62.9 Polyneuropathy, unspecified
CPT/HCPCS: 99213

== ENCOUNTER 2023-11-14 09:07 | Outpatient (AMB) | payer OTHER, SELFPAY ==
[2023-11-14 09:09] VITALS: BP 140/90; PULSE 104; TEMP 36.5; O2SAT 97; BMI 33.8
--- NOTE | 2023-11-14 09:09 | MHC.OFFWIV ---
Intake Vital Signs 11/14/23 09:09 Height 5 ft 8 in Weight 222 lb BMI 33.8 BP 140/90 H Blood Pressure Location Lt brachial Position Sitting Pulse 104 H Pulse Source Pulse Oximeter Temp 97.7 F Temp Source Temporal Artery Scan Pulse Oximetry (%) 97 Oxygen Delivery Method Room Air Intake Visit Reasons: EP weak, fatigue Intake Note: pt is here today for weak and fatigue started saturday Patient Tobacco Use Status: Current everyday Tobacco user Allergies Sulfa (Sulfonamide Antibiotics) Allergy (Mild, Verified 11/14/23 09:15) itchy Do you need a note to return to daycare/school/sports/work: No HPI HPI Comments History of Present Illness Details 53-year-old female complaining of 2 days of weakness, fatigue, shortness of breath. She states she woke up in the middle of the night the other night and felt very short of breath and had shallow breathing but she did not call 911. She denies any kinds of cough, fevers, cold symptoms, nausea, vomiting, diarrhea or urinary symptoms. She does state she gets UTIs and usually does not know she has them until they have traveled up to her kidneys. And she wants me to reassure her that she is not having heart problems. [facility] Medical History NUNO (obstructive sleep apnea) Sjogrens syndrome HTN (hypertension) Surgical History H/O tubal ligation History of foot surgery H/O LEEP Family History Father No problems noted. Mother HTN (hypertension) IDDM (insulin dependent diabetes mellitus) Breast cancer Maternal Grandmother History of heart attack Breast cancer Maternal Grandfather History of heart attack Diabetes mellitus Paternal Grandfather No problems noted. Paternal Grandmother No problems noted. Maternal Aunt Cancer Maternal Uncle Lung cancer Smoker Brother No problems noted. Brother No problems noted. Brother No problems noted. Brother No problems noted. Son No problems noted. Son No problems noted. Daughter Healthy female Daughter Healthy female Social History Housing: House Alcohol intake: never Patient Tobacco Use Status: Current everyday Tobacco user Cigarette Packs Per Day: 1 e-Cigarette/Vaping Use: Never Used Second Hand Smoke Exposure: No Current occupational status: employed Cognitive needs: No Hearing needs: No Vision needs: No Female Reproductive History Menstrual Age of Menarche: 12 Review of Systems Const All systems reviewed & are unremarkable except as noted in HPI and below Physical Exam Vital Signs: Last Vital Signs Temp 97.7 F 11/14/23 09:09 Pulse 104 H 11/14/23 09:09 BP 140/90 H 11/14/23 09:09 Pulse Ox 97 11/14/23 09:09 Oxygen Delivery Method Room Air 11/14/23 09:09 BMI result Body Mass Index 33.8 Const General: cooperative, healthy appearing, comfortable, no acute distress and well developed Orientation/consciousness: patient oriented x3 Limitations: no limitations HEENT Head: Yes normal to inspection Ears: external ears normal Mouth: Normal oral and palatal mucosa present and moist mucous membranes Throat: Yes tonsils normal, Yes uvula midline and Yes posterior oropharynx abnormal (Erythema) Eyes General: appearance normal, both eyes and all related structures Neck Neck: Yes normal visual inspection and Yes full ROM Resp Effort & Inspection: normal respiratory effort and able to speak in complete sentences Auscultation: clear to auscultation bilaterally Cardio Rate: regular rate Rhythm: regular rhythm Heart sounds: normal S1 and S2 Skin General skin exam: no rashes or lesions noted Neuro General: patient oriented x3 Extrem General: Yes normal to inspection Office Procedures EKG [id number], Complete Results AMB Urinalysis, Automated UA Leukoctes 0 Yann/uL Last Edit by Michael Power CMA on 11/14/23 10:04 UA Nitrite Negative Last Edit by Michael Power CMA on 11/14/23 10:04 UA Urobilinogen 0.2 mg/dL Last Edit by Michael Power CMA on 11/14/23 10:04 UA Protein 0 mg/dL Last Edit by Michael Power CMA on 11/14/23 10:04 UA pH 6.0 Last Edit by Michael Power CMA on 11/14/23 10:04 UA Blood 0 Torres/uL Last Edit by Michael Power CMA on 11/14/23 10:04 UA Specific [place] 1.015 Last Edit by Michael Power CMA on 11/14/23 10:04 UA Ketone Last Edit by Michael Power CMA on 11/14/23 10:04 UA Bilirubin 0 mg/dL Last Edit by Michael Power, IRIS on 11/14/23 10:04 UA Glucose 0 mg/dL Last Edit by Michael Power, IRIS on 11/14/23 10:04 Assessment & Plan Assessment & Plan (1) Fatigue: Code(s): R53.83 - Other fatigue Qualifiers: Fatigue type: unspecified Qualified Code(s): R53.83 - Other fatigue Plan: As patient's biggest complaints were weakness and fatigue, we did UA which was negative for infection, also sent a flu COVID and RSV, and did an EKG and she had concerns about her heart. EKG was normal sinus rhythm at 90 beats per minute, no acute changes. Advised if she wakes up in the middle of the night feeling symptomatic she should call 911. Likely a viral syndrome, if not feeling better, follow up with PCP next week. Plan see above Orders: Orders SARS-CoV2/FLU/RSV Today J06.9 - Acute upper respiratory infection, unspecified AMB Urinalysis Automated Today Z13.9 - Encounter for screening, unspecified Coding Level of Care Code Est Pt Level 4 (27531) Diagnoses Fatigue, unspecified type R53.83 Fatigue type: unspecified CPT Codes EKG - CPT: 00724-[id number], Complete ([id number])
== END 2023-11-14 10:17 | disposition home or self-care (01) ==
PROVIDERS: PCP Nurse Practitioner Family; Visit Provider Physician Assistant
DX: R53.83 Other fatigue (principal); R06.02 Shortness of breath
CPT/HCPCS: 81003; 93000; 99214

== ENCOUNTER 2023-11-14 10:09 | Outpatient (REF) | payer OTHER, SELFPAY ==
[2023-11-14 13:44] LABS: Influenza A PCR NEGATIVE (Negative); Influenza B PCR NEGATIVE (Negative); Resp Syncy Virus RNA Qual PCR NEGATIVE (Negative); SARS COV2 PCR INHOUSE NEGATIVE (Negative)
== END 2023-11-14 10:10 | disposition home or self-care (01) ==
LOC: HO.LAB 10:09
PROVIDERS: Visit Provider Physician Assistant
DX: J06.9 Acute upper respiratory infection, unspecified (principal)
CPT/HCPCS: 0241U

== ENCOUNTER 2023-11-27 08:39 | Outpatient (AMB) | payer OTHER, SELFPAY ==
[2023-11-27 08:40] VITALS: BP 122/82; PULSE 108; TEMP 37; O2SAT 96; BMI 33.8
--- NOTE | 2023-11-27 08:40 | AM.OFFWIN_ITS ---
Intake Vital Signs 11/27/23 08:40 Height 5 ft 8 in Weight 222 lb BMI 33.8 BP 122/82 Blood Pressure Location Rt brachial Position Sitting Pulse 108 H Pulse Source Pulse Oximeter Temp 98.6 F Temp Source Oral Pulse Oximetry (%) 96 Oxygen Delivery Method Room Air Intake Visit Reasons: EP ?Allergies/Eyes-both calves dry skin Intake Note: pt is here for possible allergies, patient states her allergies are bothering her and both calves skin is dry Patient Tobacco Use Status: Current everyday Tobacco user Allergies Sulfa (Sulfonamide Antibiotics) Allergy (Mild, Verified 11/27/23 08:41) itchy Do you need a note to return to daycare/school/sports/work: Yes HPI HPI Comments History of Present Illness Details 53-year-old female presents today compla ining of a lesion on her left eyelid with some mild swelling. She states it is itchy. Denies any blurry vision or loss of vision. Also complaining of a rash on bilateral lower anterior shins. She said she has had this for 1 year and has tried many topical ointments such as hydrocortisone without any relief. She states she shaves her legs twice a year. [facility] Medical History NUNO (obstructive sleep apnea) Sjogrens syndrome HTN (hypertension) Surgical History H/O tubal ligation History of foot surgery H/O LEEP Family History Father No problems noted. Mother HTN (hypertension) IDDM (insulin dependent diabetes mellitus) Breast cancer Maternal Grandmother History of heart attack Breast cancer Maternal Grandfather History of heart attack Diabetes mellitus Paternal Grandfather No problems noted. Paternal Grandmother No problems noted. Maternal Aunt Cancer Maternal Uncle Lung cancer Smoker Brother No problems noted. Brother No problems noted. Brother No problems noted. Brother No problems noted. Son No problems noted. Son No problems noted. Daughter Healthy female Daughter Healthy female Social History Housing: House Alcohol intake: never Patient Tobacco Use Status: Current everyday Tobacco user Cigarette Packs Per Day: 1 e-Cigarette/Vaping Use: Never Used Second Hand Smoke Exposure: No Current occupational status: employed Cognitive needs: No Hearing needs: No Vision needs: No Female Reproductive History Menstrual Age of Menarche: 12 Review of Systems Const All systems reviewed & are unremarkable except as noted in HPI and below Eyes Reports irritation and Reports itchy eyes ENT Reports no additional complaints Card Reports no additional complaints Resp Reports no additional complaints Aller/Immun Reports itchy eyes Physical Exam Vital Signs: Last Vital Signs Temp 98.6 F 11/27/23 08:40 Pulse 108 H 11/27/23 08:40 BP 122/82 11/27/23 08:40 Pulse Ox 96 11/27/23 08:40 Oxygen Delivery Method Room Air 11/27/23 08:40 BMI result Body Mass Index 33.8 Const General: healthy appearing and no acute distress HEENT Head: Yes normal to inspection, Yes normocephalic and Yes atraumatic Ears: hearing grossly normal bilaterally General nose exam: Normal external nose present Face and sinus: Yes normal facial exam Eyes General: appearance normal, both eyes and all related structures Alignment and Position: alignment normal Eyelids: Yes eyelid abnormality (Hordeolum evident on left lower lid) Conjunctivae: conjunctivae normal Sclerae: sclerae normal Pupils: Equal, round and reactive pupils present Skin Rashes: rashes noted (Macular rash bilateral lower extremities no surrounding erythema) Neuro Cranial nerves: Yes Equal, round and reactive pupils present Assessment & Plan Assessment & Plan (1) Hordeolum: Code(s): H00.019 - Hordeolum externum unspecified eye, unspecified eyelid Plan: Erythromycin ophthalmic ointment ordered for the hordeolum. Advised to use warm compresses or cold compresses as needed (2) Rash: Code(s): R21 - Rash and other nonspecific skin eruption Plan: Recommended she asked her PCP for a dermatology referral. Plan See plan Medications: New erythromycin 1 appl ophthalmic (eye) TID 3.5 grams 0RF Coding Level of Care Code Est Pt Level 3 (11109) Diagnoses Hordeolum H00.019 Rash R21
== END 2023-11-27 09:35 | disposition home or self-care (01) ==
PROVIDERS: PCP Nurse Practitioner Family; Visit Provider Physician Assistant Medical
DX: H00.019 Hordeolum externum unspecified eye, unspecified eyelid (principal); R21 Rash and other nonspecific skin eruption
CPT/HCPCS: 99213

== ENCOUNTER 2023-12-27 07:04 | Day surgery (SDC) | payer OTHER, SELFPAY ==
--- NOTE | 2023-12-26 09:36 | P.CONAN_ITS ---
Documented by User: Altagracia Mathias NP 12/26/23 09:38 HPI - Anesthesia Eval Consult details Narrative: 53yo F for Colonoscopy Anesthesia Pre-Procedure Meds Is the patient on any of the following meds?: GLP1/DPP4 PMFSH Active Problems Active Problems: All Active Problems Rash (Acute) Hordeolum (Acute) Fatigue (Acute) Neuropathy (Acute) Numbness (Acute) Weakness of both lower extremities (Acute) Perimenopause (Acute) Back pain (Acute) Dry skin dermatitis (Acute) Diverticulosis of colon (Acute) Hemorrhoids (Acute) History of colon polyps (Acute) Abnormal urinalysis (Acute) Screening for colon cancer (Acute) Bee sting (Acute) Bilateral hip pain (Acute) Lumbar back pain (Acute) Upper respiratory tract infection (Acute) Screen for sexually transmitted diseases (Acute) Breast cancer screening (Acute) Encounter for gynecological examination with Papanicolaou smear of cervix (Acute) H/O LEEP (Acute) Physical exam (Acute) Arthralgia (Acute) Diabetes (Acute) Family history of stress (Acute) Anxiety (Acute) Upper respiratory tract infection (Acute) Left ankle swelling (Acute) Left ankle pain (Acute) Body mass index [BMI] 35.0-35.9, adult (Acute) Hx of abnormal cervical Pap smear (Acute) Women's annual routine gynecological examination (Acute) Dysuria (Acute) Traumatic injury of neck (Acute) Sjogrens syndrome (Acute) Exposure to COVID-19 virus (Acute) Screening-pulmonary TB (Acute) Newly diagnosed diabetes (Acute) Physical exam (Acute) HTN (hypertension) (Acute) Elevated glucose (Acute) Morbid obesity with BMI of 40.0-44.9, adult (Acute) Past Medical History Medical History (Updated 12/26/23 @ 09:38 by Altagracia Mathias NP) Diabetes NUNO (obstructive sleep apnea) Sjogrens syndrome HTN (hypertension) Family History Family History Father No problems noted. Mother HTN (hypertension) IDDM (insulin dependent diabetes mellitus) Breast cancer Maternal Grandmother History of heart attack Breast cancer Maternal Grandfather History of heart attack Diabetes mellitus Paternal Grandfather No problems noted. Paternal Grandmother No problems noted. Maternal Aunt Cancer Maternal Uncle Lung cancer Smoker Brother No problems noted. Brother No problems noted. Brother No problems noted. Brother No problems noted. Son No problems noted. Son No problems noted. Daughter Healthy female Daughter Healthy female Surgical History Surgical History H/O tubal ligation History of foot surgery H/O LEEP Social History Social History Housing: House Alcohol intake: never Patient Tobacco Use Status: Current everyday Tobacco user Tobacco use type: Cigarette Cigarette Packs Per Day: 1 Cigarettes Per Day: 20.0 e-Cigarette/Vaping Use: Never Used Second Hand Smoke Exposure: No Use of substances other than those prescribed or required for medical reasons: Yes Are you DNR?: No Advance Directives: No Advance Directives Information Provided: Yes Current occupational status: employed Cognitive needs: No Hearing needs: No Vision needs: No Meds Allergies Allergy/AdvReac Type Severity Reaction Status Date / Time Sulfa (Sulfonamide Allergy Mild itchy Verified 11/27/23 08:41 Antibiotics) Home Medications ?Medication ?Instructions ?Recorded ?Confirmed ?Last Taken ?Type xfjqshtgpurl-cewartbb-mzmjhf tablet 1 tab PO DAILY 03/22/22 09/03/23 Unknown History meloxicam 15 mg tablet 15 mg PO DAILY 09/03/23 09/03/23 Unknown History turmeric root extract 500 mg tablet 1,000 mg PO DAILY 09/03/23 09/03/23 Unknown History Exam Pertinent Lab Results Pertinent Lab Results: Laboratory Tests 08/27/23 08:37 WBC 6.2 Hgb 13.3 Hct 40.2 Plt Count 291 Sodium 139 Potassium 3.9 Chloride 107 Carbon Dioxide 25 BUN 13 Creatinine 0.77 Narrative Narrative: EKG 11/2023 normal sinus rhythm at 90 beats per minute, no acute changes Assessment and Plan Assessment Anesthesia Assessment: Chart Reviewed Documented by User: Jordyn Kelley MD 12/27/23 08:11 [facility] Past Medical History Medical History (Updated 12/26/23 @ 09:38 by Altagracia Mathias NP) Diabetes NUNO (obstructive sleep apnea) Sjogrens syndrome HTN (hypertension) Family History Family History Father No problems noted. Mother HTN (hypertension) IDDM (insulin dependent diabetes mellitus) Breast cancer Maternal Grandmother History of heart attack Breast cancer Maternal Grandfather History of heart attack Diabetes mellitus Paternal Grandfather No problems noted. Paternal Grandmother No problems noted. Maternal Aunt Cancer Maternal Uncle Lung cancer Smoker Brother No problems noted. Brother No problems noted. Brother No problems noted. Brother No problems noted. Son No problems noted. Son No problems noted. Daughter Healthy female Daughter Healthy female Family history of problems with anesthesia: No Surgical History Surgical History H/O tubal ligation History of foot surgery H/O LEEP History of Problems with Anesthesia: No Social History Social History Housing: House Alcohol intake: never Patient Tobacco Use Status: Current everyday Tobacco user Tobacco use type: Cigarette Cigarette Packs Per Day: 1 Cigarettes Per Day: 20.0 e-Cigarette/Vaping Use: Never Used Second Hand Smoke Exposure: No Use of substances other than those prescribed or required for medical reasons: Yes Are you DNR?: No Advance Directives: No Advance Directives Information Provided: Yes Current occupational status: employed Cognitive needs: No Hearing needs: No Vision needs: No Meds Allergies Allergy/AdvReac Type Severity Reaction Status Date / Time Sulfa (Sulfonamide Allergy Mild itchy Verified 11/27/23 08:41 Antibiotics) Home Medications ?Medication ?Instructions ?Recorded ?Confirmed ?Last Taken ?Type tpasnqrbzdhw-zodmonkh-thjybq tablet 1 tab PO DAILY 03/22/22 09/03/23 Unknown History meloxicam 15 mg tablet 15 mg PO DAILY 09/03/23 09/03/23 Unknown History turmeric root extract 500 mg tablet 1,000 mg PO DAILY 09/03/23 09/03/23 Unknown History Exam Airway Mallampati Class: II (missing a couple teeth, nothing loose) TM Dist: >3cm Neck ROM: Full Heart: rrr Lungs: cta Assessment and Plan Assessment Anesthesia Assessment: Anesthesia Plan Discussed Final Anesthetic Review Family History of Problems with Anesthesia: No History of Problems with Anesthesia: No NPO: Yes ASA Class: III Final Preanesthetic Review: No Changes in Pt Med Stat, Meds/Allgs Chart Reviewed and Consent Obtained/Reviewed Patient Risk: Low Procedure Risk: Low Anesthetic Plan Anesthetic Plan: MAC: Disposition: Standard PACU
--- NOTE | 2023-12-27 07:32 | MHC.SHP ---
Pre-Procedural Eval Section A - 24 Hr Update-Section A only Date of Service: 12/27/23 The patient is an INPATIENT: No The patient has been examined within 24 hours of the surgical procedure. The History & Physical has been completed within 30 days and I have reviewed it.: No Section B - Complete if H&P > 30 days Chief Complaint: Surveillance for colon polyps Relevant Family History (Specify if Yes): No Relevant Social History: Tobacco Use Present Medications: see Short Stay Collaborative assessment Medical History: Significant History (HTN (hypertension) Sjogrens syndrome) History of Previous Operations: Relevant previous surgery/procedure and date(s) (H/O tubal ligation History of foot surgery H/O LEEP) Allergies: Allergies Allergy/AdvReac Type Severity Reaction Status Date / Time Sulfa (Sulfonamide Allergy Mild itchy Verified 11/27/23 08:41 Antibiotics) Review of Systems Sugical H&P ROS: Negative: Constitution, Cardiovascular, Respiratory and Gastrointestinal Exam Surgical H&P Exam: Normal: Heart, Normal: Lungs, Normal: Extremities and Normal: Abdomen Plan Diagnosis/Plan: Unchanged I have reviewed the history and physical and performed a pertinent physical examination on my patient. No changes have occurred unless specified. Time Spent With Patient Time: Total time managing care of this patient today ____ minutes.
[2023-12-27 07:49] VITALS: BMI 33.4
[2023-12-27 07:52] VITALS: BP 115/82; PULSE 89; RESP 16; TEMP 36.4; O2SAT 95
[2023-12-27] MEDS: Lactated Ringers 1,000 ML 100 ML IVCONT (08:22)
[2023-12-27 08:27] LABS: Glucose, Whole Blood 111 mg/dL (60-115)
--- NOTE | 2023-12-27 09:18 | P.OPN-COLO_ITS ---
Colonoscopy Operative Note Operative Note Date of Service: 12/27/23 Narrative: COLONOSCOPY TILL CECUM WITH SNARE POLYPECTOMY Pre-op diagnosis: Surveillance for colon polyps. Post-op diagnosis:? Colon polyp, Diverticulosis, hemorrhoids Endoscopist:? Serina Galvan MD Anesthesia:?MAC Consent: Indications for the procedure and potential complications of bleeding, perforation, reaction to medications and missed diagnosis were discussed with the patient and informed consent was obtained. Instrument: Olympus CF H 190 L variable stiffness adult colonoscope Monitoring: Vital signs and clinical assessment, intermittent blood pressure monitoring, continuous EKG monitoring, Pulse oximetry and Carbon Dioxide monitoring were done throughout the procedure. Please see anesthesia flowsheet. Colon withdrawl time was 20 minutes. Procedure: The patient was placed in the left lateral decubitis position and pre-procedure medications were administered. After a digital rectal examination of the ano-rectum, the video colonoscope was inserted into the rectum and advanced through the colon to the cecum. The colonoscope was slowly withdrawn in a retrograde panoramic fashion and the colon mucosa was carefully examined including a retroflexed view of the rectum. Findings and interventions are described below. Procedure Difficulty: without difficulty Findings: Terminal Ileum: Not evaluated Cecum: Normal Ascending Colon: A 7-8 mm sessile polyp in the distal AC - removed with a cold snare Transverse Colon: Normal Descending Colon: Moderate diverticulosis Sigmoid Colon: Moderate diverticulosis Rectum: Normal Ano-rectum: Moderate internal hemorrhoids Colon preparation: Good after some irrigation. Ingraham Bowel Preparation Scale Right colon; 2 Transverse colon: 2 Left colon; 2 (0 = Unprepared colon segment with mucosa not seen due to solid stool that cannot be cleared. 1 = Portion of mucosa of the colon segment seen, but other areas of the colon segment not well seen due to staining, residual stool and/or opaque liquid. 2 = Minor amount of residual staining, small fragments of stool and/or opaque liquid, but mucosa of colon segment seen well. 3 = Entire mucosa of colon segment seen well with no residual staining, small fragments of stool or opaque liquid) Impression and Post Procedure Diagnosis: Colonoscopy Findings: One small polyp was removed Moderate diverticulosis seen in the left colon Moderate hemorrhoids on retroflexed exam. Plan: Pt has a FU appointment on 01/09/24 with [facility] Repeat Colonoscopy in 5 years if polyps are adenomatous and due to a hx of adenomatous colon polyps. Above findings were reviewed with the patient and relevant handouts were given and the discharge area.
[2023-12-27 09:22] VITALS: BP 105/70; PULSE 80; RESP 18; TEMP 36.4; O2SAT 97
[2023-12-27 09:37] VITALS: BP 115/80; PULSE 77; RESP 18; O2SAT 99
[2023-12-27 09:52] VITALS: BP 117/82; PULSE 78; RESP 18; TEMP 36.4; O2SAT 98
== END 2023-12-27 10:26 | disposition home or self-care (01) ==
PROVIDERS: PCP Nurse Practitioner Family; Visit Provider Internal Medicine Gastroenterology
PROC: 0DJD8ZZ Inspection of Lower Intestinal Tract, Via Natural or Artificial Opening Endoscopic (ICD-10-PCS; CPT 45378; principal; 2023-12-27 08:30)
DX: Z12.11 Encounter for screening for malignant neoplasm of colon (principal); Z86.010 Personal history of colon polyps; D12.2 Benign neoplasm of ascending colon; K57.30 Diverticulosis of large intestine without perforation or abscess without bleeding; K64.8 Other hemorrhoids; I10 Essential (primary) hypertension; M35.00 Sjogren syndrome, unspecified; E11.9 Type 2 diabetes mellitus without complications; G47.33 Obstructive sleep apnea (adult) (pediatric); Z79.1 Long term (current) use of non-steroidal anti-inflammatories (NSAID); Z79.85 Long-term (current) use of injectable non-insulin antidiabetic drugs; Z79.899 Other long term (current) drug therapy; Z98.890 Other specified postprocedural states; F17.210 Nicotine dependence, cigarettes, uncomplicated
CPT/HCPCS: 45385; 82947; 88305; J2704; J3010

== ENCOUNTER → 2023-12-27 07:04 | Outpatient (BNV) | payer OTHER, SELFPAY | PROVIDERS: PCP Nurse Practitioner Family; Visit Provider Internal Medicine Gastroenterology | DX: Z12.11 Encounter for screening for malignant neoplasm of colon (principal); Z86.010 Personal history of colon polyps; D12.2 Benign neoplasm of ascending colon; K57.90 Diverticulosis of intestine, part unspecified, without perforation or abscess without bleeding | CPT/HCPCS: 45385 ==

== ENCOUNTER 2024-01-14 08:07 | Outpatient (AMB) | payer OTHER, SELFPAY ==
[2024-01-14 08:09] VITALS: BP 122/74; PULSE 76; O2SAT 98; BMI 34.1
--- NOTE | 2024-01-14 08:09 | A.OFFPC_ITS ---
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: No Accompanied by: Self / Same As Patient Allergies Sulfa (Sulfonamide Antibiotics) Allergy (Mild, Verified 01/14/24 08:49) itchy Medication List - Last Reconciled 01/14/24 by INGRID Islas-YAMILETH albuterol sulfate 90 mcg/actuation (Ventolin HFA) 1 inh inhalation QID PRN alcohol swabs (Alcohol Prep Pads) 1 pad topical DAILY atorvastatin 10 mg PO BEDTIME blood sugar diagnostic (FreeStyle Lite Strips) 1 strip miscellaneous twice a day; blood-glucose meter (FreeStyle Lite Meter kit) As directed ibuprofen 800 mg PO BID PRN 30 days lancets (FreeStyle Lancets) 28 gauge miscellaneous twice a day testing; twice a day testing losartan 25 mg PO DAILY juajxhzyyqfl-ahmwaqhs-ajwxzm 1 tab PO DAILY semaglutide 1 mg (0.75 mL) subcut QWEEK sumatriptan succinate 50 mg PO ONCE PRN 30 days turmeric root extract 1,000 mg PO DAILY Tobacco use date assessed: 09/03/23 Dental Screening Dental Screen Date: 09/03/23 HPI 4 month follow up HPI Details Pt is a diabetic, on an ARB and a statin. A1C in office today is 6.5. Microalbumin is up to date. Denies polyuria, polydipsia, and neuropathy. Pt denies any signs and symptoms of hypoglycemia and does know how to correct it. Eye exam is up to date. [facility] Medical History (Updated 01/14/24 @ 08:43 by SHERLY Islas) Diabetes NUNO (obstructive sleep apnea) Sjogrens syndrome HTN (hypertension) Surgical History H/O tubal ligation History of foot surgery H/O LEEP Family History Father No problems noted. Mother HTN (hypertension) IDDM (insulin dependent diabetes mellitus) Breast cancer Maternal Grandmother History of heart attack Breast cancer Maternal Grandfather History of heart attack Diabetes mellitus Paternal Grandfather No problems noted. Paternal Grandmother No problems noted. Maternal Aunt Cancer Maternal Uncle Lung cancer Smoker Brother No problems noted. Brother No problems noted. Brother No problems noted. Brother No problems noted. Son No problems noted. Son No problems noted. Daughter Healthy female Daughter Healthy female Social History Housing: House Alcohol intake: never Patient Tobacco Use Status: Current everyday Tobacco user Tobacco use type: Cigarette Cigarette Packs Per Day: 1 Cigarettes Per Day: 20.0 e-Cigarette/Vaping Use: Never Used Second Hand Smoke Exposure: No Current occupational status: employed Cognitive needs: No Hearing needs: No Vision needs: No Female Reproductive History Menstrual Age of Menarche: 12 Questionnaire PHQ-9 Over the last 2 weeks, how often have you been bothered by any of the following problems? 1. Little interest or pleasure in doing things: not at all 2. Feeling down, depressed, or hopeless: not at all 3. Trouble falling or staying asleep, or sleeping too much: not at all 4. Feeling tired or having little energy: not at all 5. Poor appetite or overeating: not at all 6. Feeling bad about yourself - or that you are a failure or have let yourself or your family down: not at all 7. Trouble concentrating on things, such as reading the newspaper or watching television: not at all 8. Moving or speaking so slowly that other people could have noticed. Or the opposite - being so fidgety or restless that you have been moving around a lot more than usual: not at all 9. Thoughts that you would be better off or of hurting yourself in some way: not at all Total score: 0 Depression Screening Interpretation: Negative Depression Screening Done: Yes 35413 - PHQ-9 Billing: Yes Source: Developed by Drs. Sree Barnes, Kasia Estevez, Juan Manuel Bergman and colleagues, with an educational paul from [employer] Thrive Questionnaire Date Thrive assessed: 01/14/24 I am a: Patient What is your living situation today?: I have a steady place to live Within the past 12 months, did the food you bought not last and you didn't have the money to get more?: Never true Within the past 12 months, did you worry whether your food would run out before you got money to buy more?: Never true Do you have trouble paying for medicines?: No Do you have trouble getting transportation to medical appointments?: No Do you have trouble paying your heating and electricity bill?: No Do you have trouble taking care of your child, family member or friend?: No Do you have trouble with day-to-day activities such as bathing, preparing meals, shopping, managing finances, etc.?: No Are you currently unemployed and looking for a job?: No Are you interested in more education?: No Please select the resources that you would like help with: Housing/Retirement Currently or been in a relationship where the following occur: No concerns reported THRIVE Score: 0 AUDIT C Alcohol Use Questionnaire (AUDIT-C) 1. How often do you have a drink containing alcohol?: Monthly or less 2. How many drinks containing alcohol do you have on a typical day when you are drinking?: 1 or 2 3. How often do you have six or more drinks on one occasion?: Never Total Score: 1 Score Reviewed/Action Taken: Yes MINESH-7 AMB Questionnaire MINESH-7 Date MINESH - 7 assessed: 01/14/24 Feeling nervous, anxious, or on edge: 0 = Not at all Not being able to stop or control worryin = Not at all Worrying too much about different things: 0 = Not at all Trouble relaxin = Not at all Being so restless that it is hard to sit still: 0 = Not at all Becoming easily annoyed or irritable: 0 = Not at all Feeling afraid as if something awful might happen: 0 = Not at all Total MINESH-7 score (0-4 normal; 5-9 mild; 10-14 moderate; 15-21 severe): 0 Source: Developed by Drs. Sree Barnes, Kasia Estevez, Juan Manuel Bergman and colleagues, with an educational paul from [employer] MINESH-7 Assessment Billing MINESH-7 Assessment Tool: MINESH-7 Assessment 90743 Review of Systems Const Reports as per HPI Physical exam (Primary Care) Vital Signs: Last Vital Signs Pulse 76 01/14/24 08:09 BP 122/74 01/14/24 08:09 Pulse Ox 98 01/14/24 08:09 Oxygen Delivery Method Room Air 01/14/24 08:09 BMI result Body Mass Index 34.1 Tobacco/Smoking Status: Tobacco use Status Tobacco use date assessed 09/03/23 01/14/24 08:10 Patient Tobacco Use Status Current everyday Tobacco 01/14/24 08:10 Tobacco use type Cigarette 01/14/24 08:10 e-Cigarette/Vaping Use Never Used 01/14/24 08:10 PHQ-9: PHQ-9 Score PHQ-9: Total score 0 01/14/24 08:40 Depression Screening Interpretation: Negative Thrive Assessment: Date of Thrive Assessment Date Thrive assessed 01/14/24 01/14/24 08:10 Currently or been in a relationship where the following occur: No concerns reported Const General: cooperative Nutritional Appearance: obese Orientation/consciousness: patient oriented x3 Resp Effort & Inspection: normal respiratory effort Auscultation: clear to auscultation bilaterally Cardio Rate: regular rate Rhythm: regular rhythm Heart sounds: S1 normal heart sound present and S2 normal heart sound present Neuro General: patient oriented x3 Extrem Other: bilat feet: + sensation with use of monofilament, feet intact Psych Appearance: grossly normal Mental Status: mental status grossly normal Speech and movement: Normal speech and movement present Affect: normal affect Attitude: cooperative Thought process: Normal thought process present Thought content: Normal thought content present Insight: Good insight present (Psych) Judgement: Good judgement present (Psych) Results AMB Hemoglobin A1c AMB Hemoglobin A1c 6.5 % Last Edit by Jovanny Guerin CMA on 01/14/24 08: 32 Results Reviewed Results Reviewed: Laboratory Last Values Hgb A1c (Clinic) 6.5 % (4.0-6.0) H 01/14/24 08:31 Assessment and Plan Assessment & Plan (1) Diabetes: Code(s): E11.9 - Type 2 diabetes mellitus without complications Plan: Labs ordered Plan The patient agreed to the use of a medical consultant for this encounter. Scribed for SHERLY Baca by rui Pretty scribe, on 01/14/2024 at 08:40 EST. Orders: Orders TSH reflex Free T4 Today E11.9 - Type 2 diabetes mellitus without complications Lipid Panel Today E11.9 - Type 2 diabetes mellitus without complications AMB Hemoglobin A1c Today Z13.9 - Encounter for screening, unspecified Complete Blood Count Auto Diff Today E11.9 - Type 2 diabetes mellitus without complications Comprehensive [place]. Panel Fast Today E11.9 - Type 2 diabetes mellitus without complications UA CC w/rflx Micro + Cult Today E11.9 - Type 2 diabetes mellitus without complications Coding Level of Care Code Est Pt Level 3 (86257) Diagnoses Diabetes E11.9 Additional Codes MINESH-7 Assessment Billing - MINESH-7 Assessment Tool: MINESH-7 Assessment 43602 ([id number])
== END 2024-01-14 09:15 | disposition home or self-care (01) ==
PROVIDERS: PCP Nurse Practitioner Family; Visit Provider Nurse Practitioner Family
DX: E11.9 Type 2 diabetes mellitus without complications (principal)
CPT/HCPCS: 83036; 99213

== ENCOUNTER 2024-02-17 07:52 | Outpatient (AMB) | payer OTHER, SELFPAY ==
--- NOTE | 2024-02-17 08:00 | MHC.OFFVIS ---
Vital Signs 02/17/24 08:01 Height 5 ft 7 in Weight 217 lb 2 oz BMI 34.0 BP 120/78 Blood Pressure Location Rt brachial Position Sitting Respiration 16 Pulse 105 H Pulse Source Pulse Oximeter Pulse Oximetry (%) 97 Oxygen Delivery Method Room Air Intake Visit Reasons: INP: Anesthesia of skin Intake Note: Pt presents for new pt evaluation for anesthesia of the skin for the past 5 years. 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: No Allergies Sulfa (Sulfonamide Antibiotics) Allergy (Mild, Verified 02/17/24 08:00) itchy Medication List - Last Reconciled 02/17/24 by Nancy Tracy MD albuterol sulfate 90 mcg/actuation (Ventolin HFA) 1 inh inhalation QID PRN alcohol swabs (Alcohol Prep Pads) 1 pad topical DAILY atorvastatin 10 mg PO BEDTIME blood sugar diagnostic (FreeStyle Lite Strips) 1 strip miscellaneous twice a day; blood-glucose meter (FreeStyle Lite Meter kit) As directed ibuprofen 800 mg PO BID PRN 30 days lancets (FreeStyle Lancets) 28 gauge miscellaneous twice a day testing; twice a day testing losartan 25 mg PO DAILY [id number] 1 tab PO DAILY semaglutide 1 mg (0.75 mL) subcut QWEEK sumatriptan succinate 50 mg PO ONCE PRN 30 days turmeric root extract 1,000 mg PO DAILY HPI Comments Details: 53y/o Right handed female comes for evaluation of abnormal discomfort in her body for over 10 years . she describes the sensation as episodic burning sensation in different parts of her body for many years. It can last for 1-2 weeks . she has it in her thighs legs arms scalp etc.Moving or resting or massaging the area does not help.she denies weakness. she has neck and back pain. she denies any shooting pain from her back but has some shooting pain form her neck No weakness No urinary urgency or incontinence .( used to have stress incontinence ) she had sling procedure. No gait issues. she has chronic sleep issues. she had sleep study at [facility] and was diagnosed with sleep apnea.she is waiting for a second appointment. she has occasional numbness and tingling in her feet.The parethesias are worse when she is trying to sleep. [facility] Medical History (Updated 02/17/24 @ 08:26 by Nancy Tracy MD) Restless legs syndrome (RLS) Burning sensation Diabetes NUNO (obstructive sleep apnea) Sjogrens syndrome HTN (hypertension) Surgical History H/O tubal ligation History of foot surgery H/O LEEP Family History Father No problems noted. Mother HTN (hypertension) IDDM (insulin dependent diabetes mellitus) Breast cancer Maternal Grandmother History of heart attack Breast cancer Maternal Grandfather History of heart attack Diabetes mellitus Paternal Grandfather No problems noted. Paternal Grandmother No problems noted. Maternal Aunt Cancer Maternal Uncle Lung cancer Smoker Brother No problems noted. Brother No problems noted. Brother No problems noted. Brother No problems noted. Son No problems noted. Son No problems noted. Daughter Healthy female Daughter Healthy female Social History Housing: House Alcohol intake: never Patient Tobacco Use Status: Current everyday Tobacco user Tobacco use type: Cigarette Cigarette Packs Per Day: 1 Cigarettes Per Day: 20.0 e-Cigarette/Vaping Use: Never Used Second Hand Smoke Exposure: No Current occupational status: employed Cognitive needs: No Hearing needs: No Vision needs: No Female Reproductive History Menstrual Age of Menarche: 12 Physical Exam Vital Signs: Last Vital Signs Pulse 105 H 02/17/24 08:01 Resp 16 02/17/24 08:01 BP 120/78 02/17/24 08:01 Pulse Ox 97 02/17/24 08:01 Oxygen Delivery Method Room Air 02/17/24 08:01 BMI result Body Mass Index 34.0 Const General: cooperative, healthy appearing and comfortable Nutritional Appearance: overweight Orientation/consciousness: patient oriented x3 Eyes Pupils: Equal, round and reactive pupils present Neuro General: patient oriented x3, gait normal, tone normal, moves all extremities and no focal motor deficits Cranial nerves: Yes Facial sensation intact/muscles of mastication intact, Yes Equal, round and reactive pupils present, Yes Bilaterally intact EOM present, Yes Nystagmus not present, Yes Normal facial strength present, Yes Midline tongue present and Yes Symmetric palate elevation present Cognition (Neuro): normal cognition Gait exam (Neuro): Normal gait present Motor exam (neuro): 5/5 motor strength present throughout and Normal motor muscle tone present throughout Deep tendon reflexes (DTR's): Right triceps reflex intensity grade: 2+, Left triceps reflex intensity grade: 2+, Rt Biceps (C5, C6): 2+, Left biceps reflex intensity grade: 2+, Right brachioradialis reflex intensity grade: 2+, Left brachioradialis reflex intensity grade: 2+, Right patellar reflex intensity grade: 2+ and Left patellar reflex intensity grade: 2+ Assessment & Plan Assessment & Plan (1) Burning sensation: Comment: episodic and involves different parts of her body ? fibromyalgia Code(s): R20.8 - Other disturbances of skin sensation Category: Medical (2) Restless legs syndrome (RLS): Code(s): G25.81 - Restless legs syndrome Category: Medical Plan She declines medications or PT for now I suggested gabapentin Magnesium 400mg qhs will consider EMG . Her Hg A1 C is improving Suggested to increase stretching and exercise. F/u [facility] for sleep apnea. Orders: Orders Vitamin B12 and Folate Today G2.81 - Restless legs syndrome Ferritin Today G25.81 - Restless legs syndrome Medications: New magnesium oxide 400 mg PO DAILY 30 tabs 6RF Coding Level of Care Code New Pt Level 4 (66033) Complex EM visit Add On G2211 Diagnoses Burning sensation R20.8 Restless legs syndrome (RLS) G25.81
[2024-02-17 08:01] VITALS: BP 120/78; PULSE 105; RESP 16; O2SAT 97; BMI 34.0
== END 2024-02-17 08:38 | disposition home or self-care (01) ==
PROVIDERS: PCP Nurse Practitioner Family; Referring Provider Nurse Practitioner Family; Visit Provider Psychiatry & Neurology Neurology
DX: R20.8 Other disturbances of skin sensation (principal); G25.81 Restless legs syndrome
CPT/HCPCS: 99204

== ENCOUNTER → 2024-02-17 07:52 | Outpatient (BNVA) | payer OTHER, SELFPAY | PROVIDERS: PCP Nurse Practitioner Family; Referring Provider Nurse Practitioner Family; Visit Provider Psychiatry & Neurology Neurology ==

== ENCOUNTER 2024-04-08 07:16 | Outpatient (REF) | payer OTHER, SELFPAY ==
[2024-04-08 07:39] LABS: MANUAL DIFF FLAG NO
[2024-04-08 08:04] LABS: Basophils Percent Auto 0.3 % (0-2); Eosinophils Absolute Auto 0.1 X10*3/uL (0.0-0.4); Eosinophils Percent Auto 1.5 % (0-4); Hematocrit 39.3 % (37.0-47.0); Hemoglobin 13.3 g/dl (12.0-16.0); Imm Gran Abs Auto 0.02 X10*3/uL (0.00-0.03); Imm Gran Pct Auto 0.3 % (0.0-0.4); Lymphocytes Absolute Auto 2.5 X10*3/uL (1.2-4.9); Lymphocytes Percent Auto 34.8 % (20-40); Mean Corpuscular HGB Conc 33.8 g/dl (31.0-35.0); Mean Corpuscular Hemoglobin 29.8 pg (27.0-33.0); Mean Corpuscular Volume 87.9 fL (80.0-98.0); Mean Platelet Volume 10.4 fL (9.4-12.3); Monocytes Absolute Auto 0.5 X10*3/uL (0.1-1.2); Neutrophils Absolute Auto 4.1 x10*3/uL (2.0-8.3); Neutrophils Percent Auto 56.1 % (45-73); Platelet Count 297 X10*3/uL (160-400); Red Blood Count 4.47 X10*6/uL (4.20-5.50); Red Cell Distribution Width 13.8 % (11.0-16.0); White Blood Count 7.3 X10*3/uL (4.8-10.8)
[2024-04-08 08:19] LABS: Appearance Urine Clear; Color Urine Yellow; Glucose Urine UA Negative (Negative); Leukocyte Esterase Urine Trace (Negative); Nitrite Urine Negative (Negative); PH 5.5 (5.0-9.0); Specific Gravity - Urine 1.025 (1.005-1.025); UMIC TRIGGER UACC YES; Urine Blood Negative (Negative); Urine Ketones Negative (Negative); Urine Protein Negative (Neg-Trace)
[2024-04-08 08:22] LABS: Bacteria Urine Trace (None Seen); Hyaline Casts Urine 0-2 /LPF (0-2); RBC Urine 0-2 /HPF (0-2); UACC Culture Trigger YES
[2024-04-08 08:39] LABS: Alanine Aminotransferase 27 U/L (0-31); Alkaline Phosphatase 57 U/L (39-117); Anion Gap 12 (12-20); Aspartate Amino Transferase 15 U/L (5-31); Bilirubin Total 0.3 mg/dL (0.0-1.0); Blood Urea Nitrogen 15 mg/dL (9-16); Calcium 9.2 mg/dL (8.4-10.2); Carbon Dioxide 21 mmol/L (22-29); Chloride 109 mmol/L (96-108); Cholesterol 171 mg/dL (<200); Estimated Glomerular Filt Rate > 60; Glucose Fasting 142 mg/dL (60-99); HDL Cholesterol 47 mg/dL (>40); LDL Cholesterol Calculated 105 mg/dL (<100); Potassium 4.1 mmol/L (3.3-5.1); Sodium 138 mmol/L (135-145); Triglycerides 97 mg/dL (<150)
[2024-04-08 08:58] LABS: Folate 12.1 ng/mL (> or = 4.0); Vitamin B12 324 pg/mL (200-900)
[2024-04-08 09:14] LABS: Ferritin 104 ng/mL (10-250); TSH reflex Free T4 1.87 uIU/mL (0.32-4.0)
== END 2024-04-08 07:17 | disposition home or self-care (01) ==
LOC: HO.LAB 07:16
PROVIDERS: Absent Provider Psychiatry & Neurology Neurology; PCP Nurse Practitioner Family; Visit Provider Nurse Practitioner Family
DX: G25.81 Restless legs syndrome (principal); E11.65 Type 2 diabetes mellitus with hyperglycemia; R82.90 Unspecified abnormal findings in urine
CPT/HCPCS: 36415; 80053; 80061; 81001; 81003; 82607; 82728; 82746; 84443; 85025; 87086

== ENCOUNTER 2024-04-10 15:45 | Outpatient (AMB) | payer OTHER, SELFPAY ==
[2024-04-10 15:46] VITALS: BP 118/78; PULSE 76; O2SAT 98; BMI 34.1
--- NOTE | 2024-04-10 15:46 | A.OFFPC_ITS ---
Vital Signs 04/10/24 15:46 Height 5 ft 7 in Weight 218 lb BMI 34.1 BP 118/78 Blood Pressure Location Rt brachial Position Sitting Pulse 76 Pulse Source Pulse Oximeter Pulse Oximetry (%) 98 Oxygen Delivery Method Room Air Intake Visit Reasons: PE Intake Note: pt is here for PE Medical Coder Required: No Accompanied by: Self / Same As Patient Allergies Sulfa (Sulfonamide Antibiotics) Allergy (Mild, Verified 04/10/24 15:46) itchy Medication List - Last Reconciled 04/10/24 by Abby Salmeron NP albuterol sulfate 90 mcg/actuation (Ventolin HFA) 1 inh inhalation QID PRN alcohol swabs (Alcohol Prep Pads) 1 pad topical DAILY atorvastatin 10 mg PO BEDTIME blood sugar diagnostic (FreeStyle Lite Strips) 1 strip miscellaneous twice a day; blood-glucose meter (FreeStyle Lite Meter kit) As directed crisaborole 2% (Eucrisa) topical BID ibuprofen 800 mg PO BID PRN 30 days lancets (FreeStyle Lancets) 28 gauge miscellaneous twice a day testing; twice a day testing losartan 25 mg PO DAILY magnesium oxide 400 mg PO DAILY [id number] 1 tab PO DAILY semaglutide 1 mg (0.75 mL) subcut QWEEK sumatriptan succinate 50 mg PO ONCE PRN 30 days turmeric root extract 1,000 mg PO DAILY Tobacco use date assessed: 09/03/23 Dental Screening Dental Screen Date: 09/03/23 HPI HPI Comments History of Present Illness Details 53 y/o female patient who presents for P E. Patient of [employer]. Patient needs physical today for work. She needs TB screening - ordered Chest Xray. Phmx of T2DM, Obesity, HTN, MIld Asthma, Dyslipidemia, and Migraine headaches. Pt was on vacation for 3 weeks, and she stopped taking her medications at that time. HCM: Mammo 2022 PAP 2021 Colonoscopy 2023. [facility] Medical History (Updated 04/10/24 @ 17:01 by Abby Salmeron NP) Encounter for routine adult health examination without abnormal findings Encounter for screening for respiratory tuberculosis Restless legs syndrome (RLS) Burning sensation Diabetes NUNO (obstructive sleep apnea) Sjogrens syndrome HTN (hypertension) Surgical History H/O tubal ligation History of foot surgery H/O LEEP Family History Father No problems noted. Mother HTN (hypertension) IDDM (insulin dependent diabetes mellitus) Breast cancer Maternal Grandmother History of heart attack Breast cancer Maternal Grandfather History of heart attack Diabetes mellitus Paternal Grandfather No problems noted. Paternal Grandmother No problems noted. Maternal Aunt Cancer Maternal Uncle Lung cancer Smoker Brother No problems noted. Brother No problems noted. Brother No problems noted. Brother No problems noted. Son No problems noted. Son No problems noted. Daughter Healthy female Daughter Healthy female Social History Housing: House Alcohol intake: never Patient Tobacco Use Status: Current everyday Tobacco user Tobacco use type: Cigarette Cigarette Packs Per Day: 1 Cigarettes Per Day: 20.0 e-Cigarette/Vaping Use: Never Used Second Hand Smoke Exposure: No Current occupational status: employed Cognitive needs: No Hearing needs: No Vision needs: No Female Reproductive History Menstrual Age of Menarche: 12 Questionnaire Thrive Questionnaire Date Thrive assessed: 04/10/24 I am a: Patient What is your living situation today?: I have a steady place to live Within the past 12 months, did the food you bought not last and you didn't have the money to get more?: Never true Within the past 12 months, did you worry whether your food would run out before you got money to buy more?: Never true Do you have trouble paying for medicines?: No Do you have trouble getting transportation to medical appointments?: No Do you have trouble paying your heating and electricity bill?: No Do you have trouble taking care of your child, family member or friend?: No Do you have trouble with day-to-day activities such as bathing, preparing meals, shopping, managing finances, etc.?: No Are you currently unemployed and looking for a job?: No Are you interested in more education?: No Please select the resources that you would like help with: None Currently or been in a relationship where the following occur: No concerns reported THRIVE Score: 0 MINESH-7 AMB Questionnaire MINESH-7 Date MINESH - 7 assessed: 01/14/24 Source: Developed by Drs. Sree Barnes, Kasia Estevez, Juan Manuel Bergman and colleagues, with an educational paul from [employer]. Review of Systems Const All systems reviewed & are unremarkable except as noted in HPI and below Physical exam (Primary Care) Vital Signs: Last Vital Signs Pulse 76 04/10/24 15:46 BP 118/78 04/10/24 15:46 Pulse Ox 98 04/10/24 15:46 Oxygen Delivery Method Room Air 04/10/24 15:46 BMI result Body Mass Index 34.1 Tobacco/Smoking Status: Tobacco use Status Tobacco use date assessed 09/03/23 04/10/24 15:47 Patient Tobacco Use Status Current everyday Tobacco 04/10/24 15:47 Tobacco use type Cigarette 04/10/24 15:47 e-Cigarette/Vaping Use Never Used 04/10/24 15:47 Thrive Assessment: Date of Thrive Assessment Date Thrive assessed 04/10/24 04/10/24 15:47 Currently or been in a relationship where the following occur: No concerns reported Const General: comfortable and no acute distress Nutritional Appearance: obese Orientation/consciousness: patient oriented x3 HENMT Head: Yes normocephalic Ears: external ears normal and TM's normal bilaterally General nose exam: Normal external nose present Face and sinus: Yes sinuses nontender Mouth: moist mucous membranes Throat: Yes tonsils normal and Yes uvula midline Eyes Pupils: Equal, round and reactive pupils present EOM: EOMs intact bilaterally Direct Ophthalmoscopy: normal light reflex Neck Neck: Yes full ROM and Yes no lymphadenopathy Resp Effort & Inspection: normal respiratory effort and able to speak in complete sentences Auscultation: clear to auscultation bilaterally, no crackles, no rales, no rhonchi and no wheezes Percussion: percussion normal Cardio Heart sounds: S1 normal heart sound present and S2 normal heart sound present GI Inspection: Yes Abdominal panniculus present and Yes obesity Palpation (GI): Soft to palpation, not firm, nontender, no guarding, not rigid and No hepatosplenomegaly present General: Yes no CVA tenderness and Yes deferred (Managed by Bookmaker'S Clerk) Back/Spine/Pelvis Back: no CVA tenderness Skin Rashes: rashes noted (B/L lower Extremities.) Neuro General: patient oriented x3, gait normal and moves all extremities Cranial nerves: Yes Equal, round and reactive pupils present Motor exam (neuro): 5/5 motor strength present throughout Extrem General: Yes full ROM and Yes capillary refill normal Psych Speech and movement: Normal speech and movement present Coding Level of Care Code Est Pt Prev Care 40-64y(14452) Diagnoses Encounter for routine adult health examination without abnormal findings Z00.00 Type 2 diabetes mellitus without complication, without long-term current use of insulin E11.9 Diabetes mellitus type: type 2 Diabetes mellitus video tape duplicator insulin use: without video tape duplicator use Diabetes mellitus complication status: without complication Body mass index [BMI] 35.0-35.9, adult Z68.35 Primary hypertension I10 Hypertension type: primary hypertension Time Spent (min) 30 Assessment & Plan Assessment & Plan (1) Encounter for routine adult health examination without abnormal findings: Code(s): Z00.00 - Encounter for general adult medical examination without abnormal findings Category: Medical Plan: Examination normal today. Ordered Chest Xray for TB screening. 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 (2) Diabetes: Code(s): E11.9 - Type 2 diabetes mellitus without complications Category: Medical Qualifiers: Diabetes mellitus type: type 2 Diabetes mellitus video tape duplicator insulin use: without mcc use Diabetes mellitus complication status: without complication Qualified Code(s): E11.9 - Type 2 diabetes mellitus without com plications Plan: Pt to resume taking her medications as prescribed. (3) Body mass index [BMI] 35.0-35.9, adult: Code(s): Z68.35 - Body mass index [BMI] 35.0-35.9, adult Category: Medical Plan: Lifestyle changes; weight loss, healthy diet and exercise. (4) HTN (hypertension): Code(s): I10 - Essential (primary) hypertension Category: Medical Qualifiers: Hypertension type: primary hypertension Qualified Code(s): I10 - Essential (primary) hypertension Plan: Patient resume taking her medications as prescribed. Lifestyle changes; weight loss, healthy diet and exercise. Orders: Orders XR chest 2V Today Z11.1 - Encounter for screening for respiratory tuberculosis
== END 2024-04-10 17:01 | disposition home or self-care (01) ==
PROVIDERS: PCP Nurse Practitioner Family; Visit Provider Nurse Practitioner Family
DX: Z00.00 Encounter for general adult medical examination without abnormal findings (principal); E11.9 Type 2 diabetes mellitus without complications; Z68.35 Body mass index [BMI] 35.0-35.9, adult; I10 Essential (primary) hypertension

== ENCOUNTER 2024-04-10 15:45 | Outpatient (REF) | payer OTHER, SELFPAY ==
--- NOTE | ~2024-04-10 | XR_ITS ---
EXAMINATION: XR CHEST CLINICAL INFORMATION: Tuberculosis screening. COMPARISON: Most recent chest radiograph dated 02/17/2020. TECHNIQUE: 2 views of the chest were obtained. FINDINGS: The lungs are clear. The cardiomediastinal silhouette is normal in size. There is no pleural effusion or pneumothorax. No acute osseous abnormality. XR/XR chest 2V IMPRESSION: No acute cardiopulmonary findings. Electronically signed by: Sloan Beal MD 04/10/2024 05:[address] [facility]
== END 2024-04-10 15:46 | disposition home or self-care (01) ==
LOC: HO.HMGCX 15:45
PROVIDERS: PCP Nurse Practitioner Family; Visit Provider Nurse Practitioner Family
DX: Z11.1 Encounter for screening for respiratory tuberculosis (principal)
CPT/HCPCS: 71046

== ENCOUNTER 2024-04-21 09:04 | Outpatient (AMB) | payer OTHER, SELFPAY ==
--- NOTE | 2024-04-21 09:04 | A.OFFVIS_ITS ---
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 Services: Trimming Machine Set Up Operator Present Information Interpreted: clinical only Client Services Assistant: Client Services Assistant Present Allergies Sulfa (Sulfonamide Antibiotics) Allergy (Mild, Verified 04/21/24 09:05) itchy Medication List - Last Reconciled 04/21/24 by Amparo Graham CNM albuterol sulfate 90 mcg/actuation (Ventolin HFA) 1 inh inhalation QID PRN alcohol swabs (Alcohol Prep Pads) 1 pad topical DAILY atorvastatin 10 mg PO BEDTIME blood sugar diagnostic (FreeStyle Lite Strips) 1 strip miscellaneous twice a day; blood-glucose meter (FreeStyle Lite Meter kit) As directed crisaborole 2% (Eucrisa) topical BID ibuprofen 800 mg PO BID PRN 30 days lancets (FreeStyle Lancets) 28 gauge miscellaneous twice a day testing; twice a day testing losartan 25 mg PO DAILY magnesium oxide 400 mg PO DAILY [id number]-bdubdmkn-kvbzcr 1 tab PO DAILY semaglutide 1 mg (0.75 mL) subcut QWEEK sumatriptan succinate 50 mg PO ONCE PRN 30 days turmeric root extract 1,000 mg PO DAILY Is last menstrual period known: Yes Last menstrual period: 04/18/24 HPI HPI BUDGET COORDINATOR annual exam: Details: Patient is here for her biochemistry technologist annual exam she is not having any biochemistry technologist concerns she would like STI testing with the exam but declines blood work. She has a mammogram later this morning. 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 She is still getting her periods they are light but they are regular [facility] Medical History Encounter for routine adult health examination without abnormal findings Encounter for screening for respiratory tuberculosis Restless legs syndrome (RLS) Burning sensation Diabetes NUNO (obstructive sleep apnea) Sjogrens syndrome HTN (hypertension) Surgical History H/O tubal ligation History of foot surgery H/O LEEP Family History Father No problems noted. Mother HTN (hypertension) IDDM (insulin dependent diabetes mellitus) Breast cancer Maternal Grandmother History of heart attack Breast cancer Maternal Grandfather History of heart attack Diabetes mellitus Paternal Grandfather No problems noted. Paternal Grandmother No problems noted. Maternal Aunt Cancer Maternal Uncle Lung cancer Smoker Brother No problems noted. Brother No problems noted. Brother No problems noted. Brother No problems noted. Son No problems noted. Son No problems noted. Daughter Healthy female Daughter Healthy female Social History Housing: House Alcohol intake: never Patient Tobacco Use Status: Current everyday Tobacco user Tobacco use type: Cigarette Cigarette Packs Per Day: 1 Cigarettes Per Day: 20.0 e-Cigarette/Vaping Use: Never Used Second Hand Smoke Exposure: No Current occupational status: employed Cognitive needs: No Hearing needs: No Vision needs: No Female Reproductive History Menstrual Age of Menarche: 12 Duration of menses: 3-5 days Date of last menstrual period: 04/18/24 control method: permanent sterilization Total pregnancies: 5 Full term: 4 Date of last pap smear: 04/20/22 (neg.2020,neg.) History of abnormal pap smear: Yes (2018 Abn.) Date of Mammogram: 03/22/23 (2Benign finding) Physical Exam Vital Signs: Last Vital Signs BP 128/78 04/21/24 09:05 BMI result Body Mass Index 34.5 Const General: healthy appearing, comfortable, no acute distress, well developed and alert Nutritional Appearance: average body habitus Orientation/consciousness: patient oriented x3 Limitations: no limitations HEENT Head: Yes normocephalic Neck Neck: Yes normal visual inspection Thyroid: Thyroid normal Chest Chest palpation & inspection: normal inspection of the chest Breast/axilla inspection: normal inspection of the breasts and normal inspection of the axillae Breast/axilla palpation: normal palpation of the breasts and normal palpation of the axillae Resp Effort & Inspection: normal respiratory effort GI Inspection: Yes normal to inspection, No Abdominal wall edema and No distended Palpation (GI): Soft to palpation and nontender Other: External exam within normal limits vagina is pink and moist cervix multiparous and that is post LEEP smooth pink with clear dark pink center from LEEP Pap and testing for STIs done no abnormal discharge appreciated cervix long close thick mobile nontender uterus midposition to anteverted mobile nontender adnexa not enlarged good tone with Kegel. General: Yes bladder normal to palpation External Female Exam: normal external appearance and normal appearance of the urethra Speculum Exam - Vagina: normal appearance of the vagina, normal palpation and normal vaginal discharge Speculum Exam - Cervix: normal appearance of the cervix, normal palpation and nontender Bimanual exam- vagina & uterus: normal bimanual exam, normal palpation, uterine size normal, bladder normal to palpation, consistency normal, normal palpation, uterine mobility normal, uterine shape normal, No Cervical tenderness present, non-tender and no cervical motion tenderness Bimanual Exam- Adnexa, other: normal adnexae, no masses, normal and No adnexal tenderness Neuro General: patient oriented x3 Results Reviewed Results Reviewed: Name: Rosa Rebollar Age/Sex: 51/F Attending: Amparo Graham CNM : 1970 Submitted by: Amparo Graham CNM Copies to: MR #: [id number] Status: DEP REF Collected: 04/19/22 Location: [facility] Received: 04/20/22 Interpretation Satisfactory for evaluation. Negative for intraepithelial lesion or malignancy. Coccobacilli consistent with shift in vaginal nikkie. HPV mRNA E6/E7: NOT DETECTED This assay detects E6/E7 viral messenger RNA (mRNA) from 14 high-risk HPV types (16, 18, 31, 33, 35, 39, 45, 51, 52, 56, 58, 59, 66, 68) HPV testing performed by [email or web address], [place], [place]. See reference laboratory portion of the EMR for entire report. Clinical Information LMP: 04/05/22 Previous PAP test: 03/27/21, WNL Material Received ThinPrep-Cervical Electronically Signed By: Mica Roman 05/11/22 1728 The Pap Test is a screening procedure with the inherent possibility of both false negative and false positive results. Results should be interpreted in the context of historic and current clinical findings. Reliability of the Pap Test is enhanced by performing the test on a regular repetitive basis. Patient: Rosa Rebollar Age/Sex: 51/F MR#: [id number] Page 1 of 1 Assessment & Plan Assessment & Plan (1) H/O LEEP: Comment: many years ago; 04/19/22 pap= neg w neg hpv;pap repeated at pt request 04/21/24. Code(s): Z98.890 - Other specified postprocedural states Category: Surgical (2) Breast cancer screening: Code(s): Z12.39 - Encounter for other screening for malignant neoplasm of breast Category: Medical Plan -----Discussed in this visit the following: healthy balanced diet, regular and consistent exercise, getting recommended health screens, doing the best she can for her particular health concerns, kegel exercises, pap smear screening and followup recommendations, mammography screening and SBE, normal changes in cycles in her life stage--- . She is doing good self-care work. Discussed joshua menopausal changes in some ways continuation of menses to this point is having some protected benefit in terms of forestall in postmenopausal symptoms such as vaginal dryness etc. Orders: Orders Pap Smear Today Z01.419 - Encounter for gynecological examination (general) (routine) without abnormal findings CT NG by PCR Today N89.8 - Other specified noninflammatory disorders of vagina, Z20.2 - Contact with and (suspected) exposure to infections with a predominantly sexual mode of transmission Bacterial Vaginosis Panel Today N89.8 - Other specified noninflammatory disorders of vagina Coding Level of Care Code Est Pt Prev Care 40-64y(92828) Diagnoses H/O LEEP Z98.890 Breast cancer screening Z12.39
[2024-04-21 09:05] VITALS: BP 128/78; BMI 34.5
== END 2024-04-21 10:14 | disposition home or self-care (01) ==
PROVIDERS: PCP Nurse Practitioner Family; Visit Provider Advanced Practice Midwife
DX: Z01.419 Encounter for gynecological examination (general) (routine) without abnormal findings (principal); Z98.890 Other specified postprocedural states; Z12.39 Encounter for other screening for malignant neoplasm of breast
CPT/HCPCS: 99396

== ENCOUNTER 2024-04-21 10:08 | Outpatient (REF) | payer OTHER, SELFPAY ==
[2024-04-22 06:04] LABS: CT PCR NOT DETECTED (Not Detect.); NG PCR NOT DETECTED (Not Detect.)
[2024-04-22 10:55] LABS: HPV 16,18/45 See PAP report
[2024-04-22 12:33] LABS: Bacterial Vaginosis PCR POSITIVE (Negative); Candida Group PCR NOT DETECTED (Not Detect); Candida glab krusei PCR NOT DETECTED (Not Detect); Trichomonas vaginalis PCR NOT DETECTED (Not Detect)
== END 2024-04-21 10:09 | disposition home or self-care (01) ==
LOC: HO.LNP 10:08
PROVIDERS: Visit Provider Advanced Practice Midwife
DX: Z01.419 Encounter for gynecological examination (general) (routine) without abnormal findings (principal); N89.8 Other specified noninflammatory disorders of vagina; Z20.2 Contact with and (suspected) exposure to infections with a predominantly sexual mode of transmission; Z87.42 Personal history of other diseases of the female genital tract
CPT/HCPCS: 0352U; 87491; 87591; 87624; 88175

== ENCOUNTER 2024-04-21 10:08 | Outpatient (REF) | payer OTHER, SELFPAY | END 2024-04-21 10:09 | disposition home or self-care (01) | LOC: HO.LAB 10:08 | PROVIDERS: Visit Provider Advanced Practice Midwife | DX: Z13.89 Encounter for screening for other disorder (principal) ==

== ENCOUNTER 2024-04-21 10:28 | Outpatient (REF) | payer OTHER, SELFPAY ==
--- NOTE | ~2024-04-21 | MM_ITS ---
EXAMINATION: MM SCREENING DIGITAL BREAST TOMOSYNTHESIS, BILATERAL CLINICAL INFORMATION: Screening. Asymptomatic. COMPARISON: Mammography: Comparison is made with available priors TECHNIQUE: Digital breast mammography with tomosynthesis is performed in both the craniocaudal and mediolateral oblique views along with computer-aided detection (CAD). FINDINGS: There are scattered areas of fibroglandular density (ACR BI-RADS breast composition Category b). There are no significant masses, abnormal calcifications, or other abnormalities. MM/MM tomosynthesis screening BI IMPRESSION: No mammographic evidence of malignancy. ASSESSMENT: BI-RADS BI-RADS 1 - Negative RECOMMENDATION: Routine annual mammography screening. 1 year F/U This examination should not preclude the clinical evaluation of a suspicious palpable abnormality. This patient's information was entered into a reminder system with a target due date for their next mammogram. Electronically signed by: Kiya Silvestre DO 04/29/2024 08:17 AM [facility] [place]
== END 2024-04-21 10:29 | disposition home or self-care (01) ==
LOC: HO.MAMMO 10:28
PROVIDERS: PCP Nurse Practitioner Family; Visit Provider Nurse Practitioner Family
DX: Z12.31 Encounter for screening mammogram for malignant neoplasm of breast (principal)
CPT/HCPCS: 77063; 77067

== ENCOUNTER → 2024-04-21 11:00 | Outpatient (BNV) | payer OTHER, SELFPAY | PROVIDERS: PCP Nurse Practitioner Family; Visit Provider Internal Medicine | DX: Z12.31 Encounter for screening mammogram for malignant neoplasm of breast (principal) | CPT/HCPCS: 77063; 77067 ==

== ENCOUNTER 2024-05-25 15:44 | Emergency (ER) | payer OTHER, SELFPAY ==
--- NOTE | ~2024-05-25 | CT_ITS ---
EXAMINATION: CT ABDOMEN AND PELVIS WITH CONTRAST CLINICAL INFORMATION: Left lower quadrant pain, ?diverticulitis COMPARISON: None available. TECHNIQUE: Multidetector volumetric images were obtained from the superior aspect of the liver through the pubic symphysis following administration 85 mL of Omnipaque 350 intravenous contrast. Sagittal and coronal reformatted images were obtained on the technologist's workstation. Oral contrast: No This CT examination was performed using dose optimization techniques as appropriate, variously including the following: *Automated exposure control *Adjustment of mA and/or kV according to patient size (this includes techniques or standardized protocols for targeted exams where dose is matched to indication/reason for exam; i.e. extremities or head) *Use of iterative reconstruction technique DLP: 721 mGy-cm FINDINGS: LUNG BASES: The visualized lung bases are unremarkable. LIVER, GALLBLADDER, AND BILIARY TREE: The liver is normal in size, shape, and attenuation. 1.0 x 0.6 cm fluid density lesion in the posterior right lobe likely represents a simple cyst and does not require further imaging follow-up (3:24). No biliary ductal dilatation is present. The gallbladder is unremarkable with no evidence of radiopaque gallstones, gallbladder wall thickening, or obvious pericholecystic inflammatory changes. PANCREAS: 7 x 5 mm cystic lesion in the pancreatic head (3:38). No pancreatic ductal dilatation. SPLEEN: Unremarkable. ADRENAL GLANDS: Unremarkable. KIDNEYS AND URETERS: A large cyst in the lower pole of the left kidney measures 6.4 x 5.1 x 4.8 cm and contains at least one septation. The kidneys are normal in size, shape, and attenuation. No hydronephrosis, hydroureter, or calculi seen. No perinephric stranding. BLADDER: Decompressed with circumferential wall thickening. GASTROINTESTINAL TRACT: Multiple sigmoid diverticuli with focal pericolonic stranding around a diverticulum in the sigmoid colon and significant associated bowel wall thickening (7:44). No drainable fluid collection. No extraluminal foci of gas. The small bowel is unremarkable. The appendix is unremarkable. ABDOMINAL WALL: No significant hernia is appreciated. LYMPH NODES: Normal. VASCULAR: Unremarkable. PELVIC VISCERA: The uterus and right adnexa are unremarkable. The left ovary is inseparable from the inflamed bowel. OSSEOUS STRUCTURES: Unremarkable. CT/CT abdomen pelvis w IV con IMPRESSION: 1. Acute uncomplicated sigmoid diverticulitis. No drainable fluid collection or pneumoperitoneum. However, the inflamed bowel is inseparable from the left ovary. 2. 7 mm cystic lesion in the pancreatic head. Recommend further evaluation with MRI/MRCP. 3. 6.4 cm cyst in the lower pole of the left kidney contains at least one septation likely represents a benign Bosniak II renal cyst, for which no additional imaging follow-up is recommended. Fleischner guidelines were followed. Electronically signed by: Pamela Davis MD 05/25/2024 09:32 PM [facility]
[2024-05-25 16:42] VITALS: BP 144/89; PULSE 126; RESP 18; TEMP 36.8; O2SAT 99; BMI 32.4
--- NOTE | 2024-05-25 16:47 | ECG_ITS ---
Test Reason : ABD PAIN Blood Pressure : / mmHG Vent. Rate : 114 BPM Atrial Rate : 114 BPM P-R Int : 184 ms QRS Dur : 080 ms QT Int : 328 ms P-R-T Axes : 056 059 027 degrees QTc Int : 452 ms Sinus tachycardia Possible Left atrial enlargement Borderline ECG When compared with ECG of 29-APR-2016 22:10, No significant change was found Referred By: Grzegorz Dodd Electronically Signed By:Jerry Mireles
--- NOTE | 2024-05-25 16:49 | ED_ITS ---
HPI - General Adult General Chief complaint: Abdominal Pain Stated complaint: Diverticulitis ? Sent by Time Seen by Provider: 05/25/24 20:06 Source: patient, RN notes reviewed and old records reviewed Mode of arrival: ambulatory Limitations: no limitations History of Present Illness ED Provider: Bryan HPI narrative: 53-year-old female with past medical history significant for diabetes, hypertension presents for evaluation of lower abdominal pain. She reports severe pain that started late last night. She reports her pain was worse around midnight The pain was her lower, central abdomen. She had associated nausea vomiting and diarrhea. She reports that she was unable to sleep due to the pain She called her doctor who recommended she come to the ER to be evaluated for ?diverticulitis. She denies any blood in the stool. She has no history of diverticulitis. Denies any urinary symptoms including burning with urination, urinary frequency Currently her pain is improved, 2/10 She had a previous tubal ligation but otherwise no abdominal surgeries Related Data Home Medications ?Medication ?Instructions ?Recorded ?Confirmed lvwbaygnkjlq-eifyeivd-pklxtm tablet 1 tab PO DAILY 03/22/22 04/21/24 turmeric root extract 500 mg tablet 1,000 mg PO DAILY 09/03/23 04/21/24 crisaborole 2 % topical ointment topical BID 04/10/24 04/21/24 (Eucrisa) Previous Rx's ?Medication ?Instructions ?Recorded alcohol swabs (Alcohol Prep Pads) 1 pad topical DAILY #200 ea 05/06/20 blood-glucose meter (FreeStyle #1 ea 05/06/20 Lite Meter kit) albuterol sulfate 90 mcg/actuation 1 inh inhalation QID PRN shortness 12/26/22 aerosol inhaler (Ventolin HFA) of breath or wheezing #8.5 grams blood sugar diagnostic (FreeStyle 1 strip miscellaneous .COMPLEX 06/09/23 Lite Strips) #200 ea lancets 28 gauge (FreeStyle 28 gauge miscellaneous .COMPLEX 06/09/23 Lancets) #200 ea losartan 25 mg tablet 25 mg PO DAILY #90 tabs 12/31/23 sumatriptan succinate 50 mg tablet 50 mg PO ONCE PRN migraine 12/31/23 headache 30 days #30 tabs magnesium oxide 400 mg PO DAILY #30 tabs 02/17/24 semaglutide 1 mg/dose (4 mg/3 mL) 1 mg (0.75 mL) subcut QWEEK #9 mL 03/02/24 subcutaneous pen injector metronidazole 500 mg tablet 500 mg PO BID 7 days #14 tabs 04/22/24 ibuprofen 800 mg tablet 800 mg PO BID PRN pain 30 days #60 05/22/24 tabs amoxicillin 875 mg-potassium 1 tab PO Q12H #20 tabs 05/25/24 clavulanate 125 mg tablet atorvastatin 10 mg tablet 10 mg PO BEDTIME #90 tabs 05/26/24 Allergies Allergy/AdvReac Type Severity Reaction Status Date / Time Sulfa (Sulfonamide Allergy Mild itchy Verified 05/25/24 16:44 Antibiotics) Review of Systems 2 Constitutional: Constitutional: Denies body ache(s), Reports chills, Denies fever(s), Denies frequent falls and Denies headache(s) Eyes: Eyes: Denies blurry vision ENT: Denies headache(s) and Denies sore throat Cardiovascular: Cardiovascular: Denies chest pain and Denies dyspnea Respiratory: Respiratory: Denies cough and Denies dyspnea Gastrointestinal: Gastrointestinal: Reports abdominal pain, Denies hematochezia, Reports diarrhea, Reports loose stools, Reports nausea and Reports vomiting Musculoskeletal: Musculoskeletal: Denies back pain Integumentary/Breasts: Skin/Breast: Denies erythema and Denies rash Neurologic: Denies frequent falls and Denies headache(s) [facility] Past Medical History Medical History (Updated 05/26/24 @ 00:01 by Marti Stratton) Encounter for routine adult health examination without abnormal findings Encounter for screening for respiratory tuberculosis Restless legs syndrome (RLS) Burning sensation Diabetes NUNO (obstructive sleep apnea) Sjogrens syndrome HTN (hypertension) Surgical History (Updated 04/24/24 @ 12:18 by Amparo Graham CNM) H/O tubal ligation History of foot surgery H/O LEEP Family History Family History Father No problems noted. Mother HTN (hypertension) IDDM (insulin dependent diabetes mellitus) Breast cancer Maternal Grandmother History of heart attack Breast cancer Maternal Grandfather History of heart attack Diabetes mellitus Paternal Grandfather No problems noted. Paternal Grandmother No problems noted. Maternal Aunt Cancer Maternal Uncle Lung cancer Smoker Brother No problems noted. Brother No problems noted. Brother No problems noted. Brother No problems noted. Son No problems noted. Son No problems noted. Daughter Healthy female Daughter Healthy female Social History Social History Housing: House Alcohol intake: never Patient Tobacco Use Status: Current everyday Tobacco user Tobacco use type: Cigarette Cigarette Packs Per Day: 1 Cigarettes Per Day: 20.0 Smoked in Last 30 Days: Yes e-Cigarette/Vaping Use: Never Used Second Hand Smoke Exposure: No Use of substances other than those prescribed or required for medical reasons: Yes Substance Use Type: Marijuana Advance Directives: No Advance Directives Information Provided: No Do you have a plan to hurt others: No Plan Patient : No Current occupational status: employed Cognitive needs: No Hearing needs: No Vision needs: No Physical Exam ED Vital Signs: Vital Signs - 24 hr 05/25/24 16:42 05/25/24 21:37 05/25/24 22:32 Temperature 98.2 F 98.3 F 98.2 F Pulse Rate 126 H 98 107 H Respiratory Rate 18 18 18 Blood Pressure 144/89 H 120/66 131/82 Pulse Oximetry 99 95 97 Oxygen Delivery Method Room Air Room Air Room Air 05/25/24 22:49 Temperature 98.2 F Pulse Rate 107 H Respiratory Rate 18 Blood Pressure 131/82 Pulse Oximetry 97 Oxygen Delivery Method Room Air BMI result Body Mass Index 32.4 Const General: healthy appearing, comfortable, no acute distress, alert and awake Nutritional Appearance: well nourished Orientation/consciousness: patient oriented x3 HENMT Head: Yes normocephalic and Yes atraumatic Eyes Eyelids: Yes eyelids normal Conjunctivae: conjunctivae normal Sclerae: sclerae normal Corneas: corneas normal Pupils: Equal, round and reactive pupils present EOM: EOMs intact bilaterally Neck Neck: Yes full ROM Resp Effort & Inspection: normal respiratory effort, able to speak in complete sentences and not labored GI Inspection: No distended Palpation (GI): Soft to palpation, not firm, Tenderness to palpation present (GI) in the LLQ and suprapubicly, no guarding and not rigid Skin General skin exam: elasticity normal Neuro General: patient oriented x3 Cranial nerves: Yes Equal, round and reactive pupils present and Yes Bilaterally intact EOM present Cognition (Neuro): normal cognition Extrem Other: Moving all extremities well without any obvious deformities Course Course Course Narrative: RME: 53 yold female presents to the ED for generalized abdominal pain since last night. patient sent to the ED to examine for diverticulitits as per PCp. labs ordered. Reevaluation(s) Reevaluation #1: Patient's CT scan shows uncomplicated diverticulitis. There was an incidental finding of a pancreatic lesion which I discussed with the patient, she will follow up with her PCP and I will put a referral into GI. We will give the patient Augmentin and a prescription for same. She will be encouraged ever liquid diet tomorrow and advance as tolerated Time: 22:25 Medications Administered Discontinued Medications Generic Name Dose Route Start Last Admin Trade Name Freq PRN Reason Stop Dose Admin Amoxicillin/Clavulanate Potassium 875 mg 05/25/24 22:24 05/25/24 22:34 Amoxicillin/Potassium Clav 875 Mg Tablet PO 05/25/24 22:25 875 mg ONCE ONE Administration Iohexol 100 ml 05/25/24 20:50 05/25/24 20:50 Iohexol 350 Mg/Ml 100 Ml Infus..Btl IV 05/25/24 20:51 85 ml ONCE ONE Administration Medical Decision Making Medical Decision Making [facility] Narrative: 53-year-old female presents for evaluation of abdominal pain that started rather acutely last night. She had GI symptoms but no symptoms. She was a white count of 12.2. She has tenderness on exam without abdominal distention, guarding. Given diarrhea, severe abdominal pain, high clinical suspicion for acute diverticulitis. Less likely acute appendicitis as her pain seems mostly left and central. We will get a CT scan with IV contrast. The patient's chemistries have no significant concerning abnormalities. Her pain is mild currently and she denies any analgesia at this time Differential Diagnosis Differential Diagnoses: The differential diagnosis associated with the presentation includes Diverticulitis Colitis Abdominal pain Obstructive uropathy Cystitis Abdominal pain Constipation Lab Data [facility] Lab Attestation statement: I reviewed the patient's lab results. As above 05/25/24 17:11 05/25/24 17:11 Labs: Lab Results 05/25/24 05/25/24 Range/Units 17:11 20:08 WBC 12.2 H (4.8-10.8) X10*3/uL RBC 4.70 (4.20-5.50) X10*6/uL Hgb 14.1 (12.0-16.0) g/dl Hct 41.8 (37.0-47.0) % MCV 88.9 (80.0-98.0) fL MCH 30.0 (27.0-33.0) pg MCHC 33.7 (31.0-35.0) g/dl RDW 13.3 (11.0-16.0) % Plt Count 306 (160-400) X10*3/uL MPV 10.5 (9.4-12.3) fL Immature Gran % (Auto) 0.3 (0.0-0.4) % Neut % (Auto) 77.1 H (45-73) % Lymph % (Auto) 16.3 L (20-40) % [place] % (Auto) 5.9 (2-11) % Eos % (Auto) 0.2 (0-4) % Baso % (Auto) 0.2 (0-2) % Lymph # (Auto) 2.0 (1.2-4.9) X10*3/uL [place] # (Auto) 0.7 (0.1-1.2) X10*3/uL Eos # (Auto) 0.0 (0.0-0.4) X10*3/uL Baso # (Auto) 0.0 (0.0-0.2) X10*3/uL Abs Immat Gran (auto) 0.04 H (0.00-0.03) X10*3/uL Absolute Neuts (auto) 9.4 H (2.0-8.3) x10*3/uL Absolute Nucleated RBC 0.000 (0.0-0.012) X10*3/uL Nucleated RBC % (auto) 0.0 (0.0-0.2) /100WBC PT 11.3 (10.9-12.4) SEC INR 1.0 (0.9-1.1) APTT 33.1 (26.0-36.8) SEC Sodium 139 (135-145) mmol/L Potassium 4.1 (3.3-5.1) mmol/L Chloride 105 (96-108) mmol/L Carbon Dioxide 26 (22-29) mmol/L Anion Gap 12 (12-20) BUN 9 (9-16) mg/dL Creatinine 0.76 (0.5-1.4) mg/dL Estim Creat Clear Calc 104.1 Estimated GFR > 60 Random Glucose 125 H (60-115) mg/dL Calcium 9.9 D (8.4-10.2) mg/dL Total Bilirubin 0.6 (0.0-1.0) mg/dL AST 15 (5-31) U/L ALT 20 (0-31) U/L Alkaline Phosphatase 65 (39-117) U/L Troponin I High Sens < 2.7 (<3.5-17.0) ng/L Total Protein 7.9 (6.5-8.0) g/dL Albumin 4.4 (3.5-5.0) g/dL Lipase 38 (8-78) U/L Beta HCG, Quant < 2 mIU/mL Urine Color Yellow Urine Appearance Clear Urine pH 6.0 (5.0-9.0) Ur Specific [place] 1.025 (1.005-1.025) Urine Protein Negative (Neg-Trace) mg/dL Urine Glucose (UA) Negative (Negative) mg/dL Urine Ketones Trace (Negative) mg/dL Urine Blood Negative (Negative) Urine Nitrite Negative (Negative) Ur Leukocyte Esterase Negative (Negative) Urine Test NEGATIVE (NEGATIVE) Prescription Management I considered prescription management with: Pain Medication and Antibiotic Discharge Plan Discharge Clinical Impression: Diverticulitis, Pancreas cyst Patient Disposition: Home, Self-Care Instructions: Diverticulitis (ED), Diverticulitis Diet (ED) Additional Instructions: Your CT scan confirms that you do have diverticulitis. I recommend a liquid diet tomorrow and advance as tolerated. Take Augmentin twice daily for the next 10 days You had an incidental finding of a 7 mm cystic lesion in the pancreas. It is recommended that you follow this up with an MRI/MRCP. Talk to your primary doctor about this You may also follow up with the GI doctor at the number provided Prescriptions: New amoxicillin-pot clavulanate 875-125 mg tablet 1 tab PO Q12H Qty: 20 0RF No Action (DME) blood-glucose meter [FreeStyle Lite Meter] Kit See Rx Instructions .ROUTE .MEDSUPPLY Qty: 1 0RF Rx Instructions: As directed alcohol swabs [Alcohol Prep Pads] Pads, Medicated 1 pad topical DAILY Qty: 200 0RF albuterol sulfate [Ventolin HFA] 90 mcg/actuation HFA aerosol inhaler 1 inh inhalation QID PRN (Reason: shortness of breath or wheezing) Qty: 8.5 1RF FreeStyle Lite Strips Strip 1 strip miscellaneous .COMPLEX Qty: 200 1RF Rx Instructions: 1 strip miscellaneous twice a day; lancets [FreeStyle Lancets] 28 gauge misc 28 gauge miscellaneous .COMPLEX Qty: 200 1RF Rx Instructions: 28 gauge miscellaneous twice a day testing; twice a day testing losartan 25 mg tablet 25 mg PO DAILY Qty: 90 1RF sumatriptan succinate 50 mg tablet 50 mg PO ONCE PRN (Reason: migraine headache) 30 Days Qty: 30 0RF semaglutide 1 mg/dose (4 mg/3 mL) pen injector 1 mg subcut QWEEK Qty: 9 1RF metronidazole 500 mg tablet 500 mg PO BID 7 Days Qty: 14 0RF Rx Instructions: Take with food, Avoid alcohol and vinegar products ibuprofen 800 mg tablet 800 mg PO BID PRN (Reason: pain) 30 Days Qty: 60 0RF atorvastatin 10 mg tablet 10 mg PO BEDTIME Qty: 90 1RF dnuvpjguhyak-sqmctvgz-oygzmn Tablet 1 tab PO DAILY turmeric root extract 500 mg tablet 1,000 mg PO DAILY magnesium oxide 400 mg magnesium tablet 400 mg PO DAILY Qty: 30 6RF Eucrisa 2 % ointment topical BID Referrals: Cesario Domínguez MD [Physician] - (pancreatic cystic lesion) Interventions: ED Discharge Assessment Last Done: 05/25/24 22:49 Discharge Date/Time: 05/25/24 22:51 Print Language: Turkish
[2024-05-25 17:16] LABS: MANUAL DIFF FLAG NO
[2024-05-25 17:27] LABS: Prothrombin Time 11.3 SEC (10.9-12.4)
[2024-05-25 17:29] LABS: Partial Thromboplastin Time 33.1 SEC (26.0-36.8)
[2024-05-25 17:36] LABS: Basophils Percent Auto 0.2 % (0-2); Eosinophils Percent Auto 0.2 % (0-4); Hematocrit 41.8 % (37.0-47.0); Hemoglobin 14.1 g/dl (12.0-16.0); Imm Gran Abs Auto 0.04 X10*3/uL (0.00-0.03); Imm Gran Pct Auto 0.3 % (0.0-0.4); Lymphocytes Percent Auto 16.3 % (20-40); Mean Corpuscular HGB Conc 33.7 g/dl (31.0-35.0); Mean Corpuscular Volume 88.9 fL (80.0-98.0); Mean Platelet Volume 10.5 fL (9.4-12.3); Monocytes Absolute Auto 0.7 X10*3/uL (0.1-1.2); Monocytes Percent Auto 5.9 % (2-11); Neutrophils Absolute Auto 9.4 x10*3/uL (2.0-8.3); Neutrophils Percent Auto 77.1 % (45-73); Platelet Count 306 X10*3/uL (160-400); Red Cell Distribution Width 13.3 % (11.0-16.0); White Blood Count 12.2 X10*3/uL (4.8-10.8)
[2024-05-25 17:39] LABS: Albumin Level 4.4 g/dL (3.5-5.0); Anion Gap 12 (12-20); Aspartate Amino Transferase 15 U/L (5-31); Bilirubin Total 0.6 mg/dL (0.0-1.0); Blood Urea Nitrogen 9 mg/dL (9-16); Calcium 9.9 mg/dL (8.4-10.2); Carbon Dioxide 26 mmol/L (22-29); Chloride 105 mmol/L (96-108); Creatinine Clr Calc Pharmacy 104.1; Estimated Glomerular Filt Rate > 60; Glucose Random 125 mg/dL (60-115); Potassium 4.1 mmol/L (3.3-5.1); Sodium 139 mmol/L (135-145); Total Protein 7.9 g/dL (6.5-8.0)
[2024-05-25 17:40] LABS: Troponin-I High Sensitivity < 2.7 ng/L (<3.5-17.0)
[2024-05-25 17:41] LABS: HCG Quantitative < 2 mIU/mL
[2024-05-25 20:20] LABS: Appearance Urine Clear; Color Urine Yellow; Glucose Urine UA Negative (Negative); Leukocyte Esterase Urine Negative (Negative); Nitrite Urine Negative (Negative); Specific Gravity - Urine 1.025 (1.005-1.025); Urine Blood Negative (Negative); Urine Ketones Trace mg/dL (Negative); Urine Pregnancy NEGATIVE (NEGATIVE); Urine Protein Negative (Neg-Trace)
[2024-05-25 20:21] LABS: UPreg QC Valid YES
[2024-05-25] MEDS: iohexoL 350 MG/ML 100 ML INFUS..BTL IV (20:50)
[2024-05-25 21:37] VITALS: BP 120/66; PULSE 98; RESP 18; TEMP 36.8; O2SAT 95
[2024-05-25 22:32] VITALS: BP 131/82; PULSE 107; RESP 18; TEMP 36.8; O2SAT 97
[2024-05-25] MEDS: Amoxicillin/Potassium Clav 875 MG TABLET PO (22:34)
[2024-05-25 22:40] LABS: Alanine Aminotransferase 20 U/L (0-31); Alkaline Phosphatase 65 U/L (39-117); Lipase 38 U/L (8-78)
[2024-05-25 22:49] VITALS: BP 131/82; PULSE 107; RESP 18; TEMP 36.8; O2SAT 97
== END 2024-05-25 22:51 | disposition home or self-care (01) ==
PROVIDERS: Physician Assistant; Emergency Provider Emergency Medicine; PCP Nurse Practitioner Family
DX: K57.32 Diverticulitis of large intestine without perforation or abscess without bleeding (principal); K86.2 Cyst of pancreas; R10.30 Lower abdominal pain, unspecified; E11.9 Type 2 diabetes mellitus without complications; I10 Essential (primary) hypertension; M35.00 Sjogren syndrome, unspecified; F17.210 Nicotine dependence, cigarettes, uncomplicated
CPT/HCPCS: 36415; 74177; 80053; 81003; 81025; 83690; 84484; 84702; 85025; 85610; 85730; 93005; 99284; 99285; Q9967

== ENCOUNTER → 2024-05-25 16:47 | Outpatient (BNV) | payer OTHER, SELFPAY | PROVIDERS: Emergency Provider Emergency Medicine; PCP Nurse Practitioner Family; Visit Provider Internal Medicine Cardiovascular Disease | DX: R00.0 Tachycardia, unspecified (principal) | CPT/HCPCS: 93010 ==

== ENCOUNTER → 2024-06-17 08:54 | Outpatient (BNV) | payer OTHER, SELFPAY | PROVIDERS: PCP Nurse Practitioner Family; Visit Provider Radiology Diagnostic Radiology | DX: K86.2 Cyst of pancreas (principal) | CPT/HCPCS: 74183 ==

== ENCOUNTER 2024-06-17 09:03 | Outpatient (REF) | payer OTHER, SELFPAY ==
--- NOTE | ~2024-06-17 | MR_ITS ---
EXAMINATION: MRI Abdomen without and with contrast HISTORY: K86.2 - Cyst of pancreas COMPARISON: Correlation is made with a CT of the abdomen with contrast dated 05/25/2024. TECHNIQUE: Axial in and out of phase T1-weighted gradient echo, axial diffusion weighted, and axial and coronal haste T2 with fat saturation images were obtained through the abdomen. 3D MRCP Reconstructed images and thick slab imaging of the biliary tree were obtained. Subsequently, fat suppressed axial and coronal T1-weighted images were obtained after the intravenous administration of 10 mL Gadavist. FINDINGS: There is mild loss of signal intensity within the liver on opposed phase imaging, compatible with steatosis. There is a 10 mm bilobed cyst in segment IV. No enhancing liver mass is identified. There is no intra or extrahepatic biliary ductal dilatation. No filling defects are identified within the common bile duct to suggest choledocholithiasis. The hepatic and portal veins are patent. There is a 10 x 7 mm cystic structure in the uncinate process of the pancreas without evidence of associated enhancement. There is no definite communication with pancreatic duct, which is not dilated. The remainder the pancreas is unremarkable. The gallbladder, spleen, adrenals, and left kidney are unremarkable. There is a 6.2 x 4.4 cm septated left renal parapelvic cyst at the lower pole. No retroperitoneal lymphadenopathy or ascites is identified in the upper abdomen. MR/MR abdomen wo/w con IMPRESSION: 1. 10 x 7 mm cystic structure in the uncinate process of the pancreas which may represent an IPM 9. There is no associated contrast enhancement. A follow-up examination in one year is recommended. 2. Mild hepatic steatosis. Electronically signed by: Sree Daniels MD 06/17/2024 11:17 AM [facility]
[2024-06-17] MEDS: gadobutroL 10 ML VIAL IVPUSH (10:11)
== END 2024-06-17 09:04 | disposition home or self-care (01) ==
LOC: HO.MRI 09:03
PROVIDERS: PCP Nurse Practitioner Family; Visit Provider Nurse Practitioner Family
DX: K86.2 Cyst of pancreas (principal)
CPT/HCPCS: 74183; A9585

== ENCOUNTER 2024-07-21 06:59 | Outpatient (REF) | payer OTHER, SELFPAY ==
--- OUTSIDE RECORDS SUMMARY | 2024-07-21 07:04 | XMS_ITS | Patient Health Record ---
Author Organization [facility] Address [address] [place] [address] Care Team Providers Care Pricer Bagger Name Role Phone NABILA GARCIA Primary Care Provider Cesario Lloyd Jr Unavailable [phone] ALLERGIES Allergen (clinical drug ingredient) Drug/Non Drug Allergy documented on EMR Reaction Allergy Type Onset Date Status Substance with sulfonamide structure and antibacterial mechanism of action (substance) Sulfa Antibiotics Unknown Drug Allergy Active seasonal (uncoded) Unknown Allergy A ctive REASON FOR REFERRAL No Information MEDICATIONS Medication SIG (Take, Route, Frequency, Duration) Notes Start Date End Date Status Magnesium 300 MG 1 capsule with a indra l Orally Once a day for 30 day(s) Active Semaglutide(0.25 or 0.5MG/DOS) 2 MG/1.5ML as directed Subcutaneous Active Ibuprofen 800 MG 1 tablet with food o r milk as needed Orally every 8 hrs Active Losartan Potassium 25 MG 1 tablet Orally Once a day for 30 day(s) Active Turmeric - as directed Active Atorvastatin Calcium 40 MG 1 tablet Oral ly Once a day for 30 day(s) Active Albuterol 90 MCG/ACT as directed Inhalation Active Multi Vitamin - 1 tablet Orally Once a day for 30 day(s) Active SUMAtriptan 5 MG/ACT 1 spray at onset of headache in one nostril may repeat dose after 2 hours as needed Nasally Once a day for 1 day(s) Active metroNIDAZOLE 0.75 % 1 application Exter lavon Twice a day Active IMMUNIZATIONS Vaccine Route Administration Date Status Comme nts Influenza Unknown 02/25/2024 Administered SOCIAL HISTORY Tobacco Use: Social History Observation Description Date Details (start date - stop date) Current Smoker NA - NA Sex Assigned At : Social History Observation Description Sex Assigned At Unknown Tobacco Use/Smoking Question Answer Notes Patient is a current smoker Alcohol Screen Question Answer Notes Did you have a drink containing alcohol in the p ast year? No Points 0 Interpretation Negative PROBLEMS Problem Type ICD Code Onset Dates Problem Status W/U Status Risk SNOMED Code Notes Problem Pancreatic cyst (K86.2) Active confirmed 19399423 Problem Diverticulitis (K57.92) Active confirmed 390579453 VITAL SIGNS Temperature 97.3 degrees Fahrenheit 06/17/2024 Blood pressure diastolic 00 mm Hg 06/17/2024 Height 5 ft 7 in in 06/17/2024 Blood pressure systolic 000 mm Hg 06/17/2024 Weight 215 lb 6 oz lbs 06/17/2024 BMI 33.73 kg/m2 06/17/2024 Encounters Encounter Location Date Provider Diagnosis [facility] [address] [place] [phone] 06/17/2024 Cesario Domínguez Jr Pancreatic cyst K86.2 and Diverticulitis K57.92 [facility] [address] [place] [phone] 06/24/2024 Cesario Domínguez Jr ASSESSMENTS Encounter Date Diagnosis Assessment Notes Treatment Notes Treatment Clinical Notes 06/17/2024 Diverticulitis (ICD-10 - K57.92) 06/17/2024 Pancreatic cyst (ICD-10 - K86.2) Diverticulitis and diverticulosis - discharge material was printed PLAN OF TREATMENT No Information Insurance Providers Payer Name Payer Address Payer Phone Subscriber Number Group Number Insured Name Patient Relationship to Insured Coverage Start Date Coverage End Date [facility] [address] [facility] [phone] [id number] KRAIG BROOKE Self - patient is the insured MEDICAL (GENERAL) HISTORY Medical History History ICD Code Hypertension Diabetes mellitus type 2 with neuropathy Hyperlipidemia Colonoscopy 12/24, tubular adenoma, seven -year followup Lupus/Sjogren's syndrome Diverticulitis Pancreatic head lesion Surgical History Surgery Date(Month/Year) Tubal ligation Skin graft to foot Urethral sling
--- OUTSIDE RECORDS SUMMARY | 2024-07-21 07:04 | XMS_ITS ---
Author Organization [facility] Address [address] [place] [phone] Care Team Providers Care Research Animal Facility Supervisor Name Role Phone NABILA GARCIA Primary Care Provider Cesario Lloyd Jr [phone] REASON FOR VISIT 1 year office recall Encounters Encounter Location Date Provider Diagnosis [facility] [address] [place] [phone] 06/24/2024 Cesario Domínguez Jr PLAN OF TREATMENT No Information
[2024-07-21 08:14] LABS: Appearance Urine Hazy; Color Urine Yellow; Glucose Urine UA Negative (Negative); Leukocyte Esterase Urine Trace (Negative); Nitrite Urine Negative (Negative); Specific Gravity - Urine >= 1.030 (1.005-1.025); UMIC TRIGGER UACC YES; Urine Blood Negative (Negative); Urine Ketones Negative (Negative); Urine Protein Negative (Neg-Trace)
[2024-07-21 08:16] LABS: Alanine Aminotransferase 28 U/L (0-31); Alkaline Phosphatase 52 U/L (39-117); Anion Gap 13 (12-20); Aspartate Amino Transferase 20 U/L (5-31); Bilirubin Total 0.2 mg/dL (0.0-1.0); Blood Urea Nitrogen 9 mg/dL (9-16); Calcium 9.1 mg/dL (8.4-10.2); Carbon Dioxide 21 mmol/L (22-29); Chloride 109 mmol/L (96-108); Estimated Glomerular Filt Rate > 60; Glucose Random 124 mg/dL (60-115); Potassium 3.9 mmol/L (3.3-5.1); Sodium 139 mmol/L (135-145); Total Protein 7.2 g/dL (6.5-8.0)
[2024-07-21 08:18] LABS: Bacteria Urine 4+ (None Seen); Hyaline Casts Urine 0-2 /LPF (0-2); RBC Urine 0-2 /HPF (0-2); Squamous Epithelial Cell Urine >20 /HPF (0-2); WBC Urine 0-5 /HPF (0-5)
== END 2024-07-21 07:00 | disposition home or self-care (01) ==
LOC: HO.LAB 06:59
PROVIDERS: PCP Nurse Practitioner Family; Visit Provider Nurse Practitioner Family
DX: D49.0 Neoplasm of unspecified behavior of digestive system (principal)
CPT/HCPCS: 36415; 80053; 81001; 81003

== ENCOUNTER 2024-07-23 11:02 | Outpatient (AMB) | payer OTHER, SELFPAY ==
--- NOTE | 2024-07-23 11:07 | A.OFFPC_ITS ---
Vital Signs 07/23/24 11:08 Height 5 ft 8 in Weight 213 lb BMI 32.4 BP 130/72 Blood Pressure Location Lt brachial Position Sitting Pulse 91 Pulse Source Pulse Oximeter Temp 97.9 F Temp Source Oral Pulse Oximetry (%) 97 Oxygen Delivery Method Room Air Intake Visit Reasons: 6 month follow up Intake Note: pt is here for 6 mon f.up Orthotic And Prosthetic Technician Required: No Accompanied by: Self / Same As Patient Allergies Sulfa (Sulfonamide Antibiotics) Allergy (Mild, Verified 07/23/24 11:08) itchy Tobacco use date assessed: 07/23/24 Dental Screening Dental Screen Date: 07/23/24 Did you have a dental visit in the last 12 months?: Yes Did you have a dental problem in the last 6 months where you did not have access to dental care?: No Was dental information given to patient?: Patient has dentist HPI 6 month follow up HPI Details Chief Complaint Follow-up appointment for diabetes management. History of Present Illness The patient is a 53-year-old female presenting with follow-up for diabetes management. She has had diabetes mellitus for an unspecified duration and is here to monitor the condition's progression and management. During this visit, a hemoglobin A1c test was performed, indicating a result of 6.3, which suggests good glycemic control. She denies experiencing neuropathy, polyuria, or polydipsia, which are common complications or symptoms associated with diabetes. A monofilament test was conducted to assess peripheral neuropathy, showing positive results with intact bilateral feet. No significant changes or complications in her diabetes management have been reported since her last visit. Social History Health Maintenance - An eye exam was recommended and ordere d during this visit. - A monofilament test was conducted to a ssess for peripheral neuropathy. - Hemoglobin A1c level checked and recor ded as 6.3. Review of Systems - Neurological: Denies neuropathy. - Endocrine: Denies polyuria, polydipsia . Physical Exam General: Cooperative, healthy appearing, comfortable, no acute distress and well developed Orientation: Patient oriented x3 Limitations: No limitations Head: Normal to inspection Ears: Hearing grossly normal bilaterally Nose: Normal external nose present Face and sinus: Normal facial exam Eyes: Appearance normal, both eyes and all related structures Neck: Normal visual inspection and Yes full ROM Respiratory: Normal respiratory effort and able to speak in complete sentences. Clear to auscultation bilaterally Cardiovascular: Regular rate and rhythm. Normal S1 and S2 GI: Normal to inspection. Soft to palpation and nontender Skin: No rashes or lesions noted Neuro: Patient oriented x3 Extremities: positive sensation with use of monofilament to bilateral lower feet. Feet were intact bilaterally Results - Labs: Hemoglobin A1c today is 6.3. Plan 1. 3: - Encourage continuation of eye ca re underlined by the order for an eye exam today. - Follow up with monofilament testing re sults and ensure protective strategies for foot care due to positive bilateral lower extremity test findings. Discussion Notes In our discussion today, we reviewed the current status of the patient's diabetes management, including her latest A1c result. We emphasized the importance of regular eye exams, given her diabetes, and an eye exam was ordered during this visit. I explained the relevance of the monofilament test in assessing her peripheral neuropathy risk and emphasized maintaining good foot care. The patient was advised to continue current management strategies as her glycemic control appears well-maintained. We discussed the significance of routine monitoring and use of preventative measures to mitigate risks associated with diabetes. The patient agreed to follow the management and preventive recom mendations provided. Patient Instructions - Continue following your current diabet es management plan and take medications as prescribed. - Schedule and attend the ordered eye ex am to monitor eye health related to diabetes. - Maintain regular foot care and monitor for any changes or injury, given the monofilament test results. - Return for routine follow-ups to [facility] monitoring A1c and adjust treatment if necessary. -she reports she will make her own visua l screening [facility] Medical History Encounter for routine adult health examination without abnormal findings Encounter for screening for respiratory tuberculosis Restless legs syndrome (RLS) Burning sensation Diabetes NUNO (obstructive sleep apnea) Sjogrens syndrome HTN (hypertension) Surgical History H/O tubal ligation History of foot surgery H/O LEEP Family History Father No problems noted. Mother HTN (hypertension) IDDM (insulin dependent diabetes mellitus) Breast cancer Maternal Grandmother History of heart attack Breast cancer Maternal Grandfather History of heart attack Diabetes mellitus Paternal Grandfather No problems noted. Paternal Grandmother No problems noted. Maternal Aunt Cancer Maternal Uncle Lung cancer Smoker Brother No problems noted. Brother No problems noted. Brother No problems noted. Brother No problems noted. Son No problems noted. Son No problems noted. Daughter Healthy female Daughter Healthy female Social History Housing: House Alcohol intake: never Patient Tobacco Use Status: Current everyday Tobacco user Tobacco use type: Cigarette Cigarette Packs Per Day: 1 Cigarettes Per Day: 20.0 e-Cigarette/Vaping Use: Never Used Second Hand Smoke Exposure: No Substance Use Type: Marijuana Current occupational status: employed Cognitive needs: No Hearing needs: No Vision needs: No Female Reproductive History Menstrual Age of Menarche: 12 Questionnaire PHQ-9 Over the last 2 weeks, how often have you been bothered by any of the following problems? 1. Little interest or pleasure in doing things: not at all 2. Feeling down, depressed, or hopeless: not at all 3. Trouble falling or staying asleep, or sleeping too much: nearly every day 4. Feeling tired or having little energy: nearly every day 5. Poor appetite or overeating: not at all 6. Feeling bad about yourself - or that you are a failure or have let yourself or your family down: not at all 7. Trouble concentrating on things, such as reading the newspaper or watching television: not at all 8. Moving or speaking so slowly that other people could have noticed. Or the opposite - being so fidgety or restless that you have been moving around a lot more than usual: not at all 9. Thoughts that you would be better off or of hurting yourself in some way: not at all Total score: 6 Depression Screening Interpretation: Negative Depression Screening Done: Yes 06162 - PHQ-9 Billing: Yes Source: Developed by Drs. Sree Barnes, Kasia Estevez, Juan Manuel Bergman and colleagues, with an educational paul from [employer]. Thrive Questionnaire Date Thrive assessed: 07/23/24 I am a: Patient What is your living situation today?: I have a steady place to live Within the past 12 months, did the food you bought not last and you didn't have the money to get more?: Never true Within the past 12 months, did you worry whether your food would run out before you got money to buy more?: Never true Do you have trouble paying for medicines?: No Do you have trouble getting transportation to medical appointments?: No Do you have trouble paying your heating and electricity bill?: Yes Do you have trouble taking care of your child, family member or friend?: No Do you have trouble with day-to-day activities such as bathing, preparing meals, shopping, managing finances, etc.?: No Are you currently unemployed and looking for a job?: No Are you interested in more education?: No Please select the resources that you would like help with: None Currently or been in a relationship where the following occur: No concerns reported THRIVE Score: 1 AUDIT C Alcohol Use Questionnaire (AUDIT-C) 1. How often do you have a drink containing alcohol?: Never 3. How often do you have six or more drinks on one occasion?: Never Total Score: 0 Score Reviewed/Action Taken: Yes MINESH-7 AMB Questionnaire MINESH-7 Date MINESH - 7 assessed: 07/23/24 Feeling nervous, anxious, or on edge: 0 = Not at all Not being able to stop or control worryin = Not at all Worrying too much about different things: 0 = Not at all Trouble relaxin = Not at all Being so restless that it is hard to sit still: 0 = Not at all Becoming easily annoyed or irritable: 0 = Not at all Feeling afraid as if something awful might happen: 0 = Not at all Total MINESH-7 score (0-4 normal; 5-9 mild; 10-14 moderate; 15-21 severe): 0 Source: Developed by Drs. Sree Barnes, Kasia Estevez, Juan Manuel Bergman and colleagues, with an educational paul from [employer]. MINESH-7 Assessment Billing MINESH-7 Assessment Tool: MINESH-7 Assessment 87138 Physical exam (Primary Care) Vital Signs: Last Vital Signs Temp 97.9 F 07/23/24 11:08 Pulse 91 07/23/24 11:08 BP 130/72 07/23/24 11:08 Pulse Ox 97 07/23/24 11:08 Oxygen Delivery Method Room Air 07/23/24 11:08 BMI result Body Mass Index 32.4 Tobacco/Smoking Status: Tobacco use Status Tobacco use date assessed 07/23/24 07/23/24 11:09 Patient Tobacco Use Status Current everyday Tobacco 07/23/24 11:09 Tobacco use type Cigarette 07/23/24 11:09 e-Cigarette/Vaping Use Never Used 07/23/24 11:09 PHQ-9: PHQ-9 Score PHQ-9: Total score 6 07/23/24 11:33 Depression Screening Interpretation: Negative Thrive Assessment: Date of Thrive Assessment Date Thrive assessed 07/23/24 07/23/24 11:09 Currently or been in a relationship where the following occur: No concerns reported Results AMB Hemoglobin A1c AMB Hemoglobin A1c 6.3 % Last Edit by Jovanny Guerin CMA on 07/23/24 11: 53 Results Reviewed Results Reviewed: Laboratory Last Values Hgb A1c (Clinic) 6.3 % (4.0-6.0) H 07/23/24 11:51 Coding Level of Care Code Est Pt Level 3 (34937) Diagnoses Smoker F17.200 Type 2 diabetes mellitus without complication, without long-term current use of insulin E11.9 Diabetes mellitus complication status: without complication Diabetes mellitus nursing home insulin use: without nursing home use Diabetes mellitus type: type 2 Additional Codes MINESH-7 Assessment Billing - MINESH-7 Assessment Tool: MINESH-7 Assessment 91695 ([id number]) PHQ-9 - 63898 - PHQ-9 Billing: Yes ([id number]) Assessment & Plan Assessment & Plan (1) Smoker: Code(s): F17.200 - Nicotine dependence, unspecified, uncomplicated Category: Social Hx (2) Diabetes: Code(s): E11.9 - Type 2 diabetes mellitus without complications Category: Medical Qualifiers: Diabetes mellitus complication status: without complication Diabetes [facility] insulin use: without terminal gauger use Diabetes mellitus type: type 2 Qualified Code(s): E11.9 - Type 2 diabetes mellitus without complications Plan . Orders: Orders Complete Blood Count Auto Diff Today E11.9 - Type 2 diabetes mellitus without complications Lipid Panel Today E11.9 - Type 2 diabetes mellitus without complications Comprehensive [place]. Panel Fast Today E11.9 - Type 2 diabetes mellitus without complications TSH reflex Free T4 Today E11.9 - Type 2 diabetes mellitus without complications Microalbumin, Random (w Creat) Today E11.9 - Type 2 diabetes mellitus without complications UA CC w/rflx Micro + Cult Today E11.9 - Type 2 diabetes mellitus without complications AMB Hemoglobin A1c Today Z13.9 - Encounter for screening, unspecified Referrals Lung Cancer Screening Referral F17.200 - Nicotine dependence, unspecified, uncomplicated
[2024-07-23 11:08] VITALS: BP 130/72; PULSE 91; TEMP 36.6; O2SAT 97; BMI 32.4
--- OUTSIDE RECORDS SUMMARY | 2024-07-23 12:21 | XMS_ITS | Patient Health Record ---
Author Organization [facility] Address [address] [place] [address] Care Team Providers Care Computer Engineering Technologist Name Role Phone NABILA GARCIA Primary Care Provider Cesario Lloyd Jr Unavailable ALLERGIES Allergen (clinical drug ingredient) Drug/Non Drug [...] Notes Problem Pancreatic cyst (K86.2) Active confirmed 60457424 Problem Diverticulitis (K57.92) Active confirmed [id number] VITAL SIGNS Temperature 97.3 degrees Fahrenheit 06/17/2024 Blood pressure diastolic 00 mm Hg 06/17/2024 Height 5 ft 7 in in 06/17/2024 Blood pressure systolic 000 mm Hg 06/17/2024 Weight 215 lb 6 oz lbs 06/17/2024 BMI 33.73 kg/m2 06/17/2024 Encounters Encounter Location Date Provider Diagnosis [facility] [address] [place] [phone] 06/17/2024 Cesario Domínguez Jr Pancreatic cyst K86.2 and Diverticulitis K57.92 [facility] [address] [place] [phone] 06/24/2024 Cesario Domínguez Jr ASSESSMENTS Encounter Date Diagnosis Assessment Notes Treatment Notes Treatment Clinical Notes 06/17/2024 Diverticulitis (ICD-10 - K57.92) 06/17/2024 Pancreatic cyst (ICD-10 - K86.2) Diverticulitis and diverticulosis - discharge material was printed PLAN OF TREATMENT No Information Insurance Providers Payer Name Payer Address Payer Phone Subscriber Number Group Number Insured Name Patient Relationship to Insured Coverage Start Date Coverage End Date [facility] [address] [facility] [phone] [id number] KRAIG BROOKE Self - patient is the insured MEDICAL (GENERAL) HISTORY Medical History History ICD Code Hypertension Diabetes mellitus type 2 with neuropathy Hyperlipidemia Colonoscopy 12/24, tubular adenoma, seven -year followup Lupus/Sjogren's syndrome Diverticulitis Pancreatic head lesion Surgical History Surgery Date(Month/Year) Tubal ligation Skin graft to foot Urethral sling
--- OUTSIDE RECORDS SUMMARY | 2024-07-23 12:21 | XMS_ITS ---
Author Organization [facility] Address [address] [place] [address] Care Team Providers Care Aquatic Facility Manager Name Role Phone NABILA GARCIA Primary Care Provider Cesario Lloyd Jr Unavailable ALLERGIES Allergen (clinical drug ingredient) Drug/Non Drug Allergy documented on EMR Reaction Allergy Type Onset Date Status Substance with sulfonamide structure and antibacterial mechanism of action (substance) Sulfa Antibiotics Unknown Drug Allergy Active seasonal (uncoded) Unknown Allergy A ctive REASON FOR VISIT Patient presents today for a CYST ON PANCREAS MEDICATIONS Medication SIG (Take, Route, Frequency, Duration) Notes Start Date End Date Status Magnesium 300 MG 1 capsule with a indra l Orally Once a day for 30 day(s) Active Semaglutide(0.25 or 0.5MG/DOS) 2 MG/1.5ML as directed Subcutaneous Active Albuterol 90 MCG/ACT as directed Inhalation Active SUMAtriptan 5 MG/ACT 1 spray at onset of headache in one nostril may repeat dose after 2 hours as needed Nasally Once a day for 1 day(s) Active metroNIDAZOLE 0.75 % 1 application Exter lavon Twice a day Active Ibuprofen 800 MG 1 tablet with food o r milk as needed Orally every 8 hrs Active Losartan Potassium 25 MG 1 tablet Orally Once a day for 30 day(s) Active Turmeric - as directed Active Atorvastatin Calcium 40 MG 1 tablet Oral ly Once a day for 30 day(s) Active Multi Vitamin - 1 tablet Orally Once a day for 30 day(s) Active SOCIAL HISTORY Tobacco Use: Social History Observation [...] Notes Problem Pancreatic cyst (K86.2) Active confirmed 83964835 Problem Diverticulitis (K57.92) Active confirmed [id number] VITAL SIGNS BMI 33.73 kg/m2 06/17/2024 Blood pressure systolic 000 mm Hg 06/17/19 25 Blood pressure diastolic 00 mm Hg 025 Height 5 ft 7 in in 06/17/2024 Temperature 97.3 degrees Fahrenheit 06/17/19 25 Weight 215 lb 6 oz lbs 06/17/2024 Encounters Encounter Location Date Provider Diagnosis [facility] [address] [place] [address] 06/17/2024 Cesario Domínguez Jr Pancreatic cyst K86.2 and Diverticulitis K57.92 ASSESSMENTS Encounter Date Diagnosis Assessment Notes Treatment Notes Treatment Clinical Notes 06/17/2024 Pancreatic cyst (ICD-10 - K86.2) Diverticulitis and diverticulosis - discharge material was printed 06/17/2024 Diverticulitis (ICD-10 - K57.92) PLAN OF TREATMENT Treatment Notes Assessment Notes Pancreatic cyst Diverticulitis and d iverticulosis - discharge material was printed Next Appt Details Follow Up: 1 Year, Reason: Progress Notes * Examination Category Sub-Category Detail Notes General Examination GENERAL APPEARANCE: in no ac asa'[place] distress HEAD: normocephalic EYES: sclera non-icteric NECK/THYROID: no lymphadenopathy HEART: S1, S2 normal, no mu rmurs CHEST: normal shape and exp ansion LUNGS: clear to auscultatio n bilaterally ABDOMEN: soft, nontender, non distended, bowel sounds present, no organomegaly SKIN: anicteric EXTREMITIES: no clubbing, cyanosi s, or edema PSYCH: cognitive function i ntact ORAL CAVITY: mucosa moist
--- OUTSIDE RECORDS SUMMARY | 2024-07-23 12:22 | XMS_ITS ---
Author Organization [facility] Address [address] [place] [phone] Care Team Providers Care Spinning Lathe Operator Hydraulic Name Role Phone NABILA GARCIA Primary Care Provider Cesario Lloyd Jr REASON FOR VISIT 1 year office recall Encounters Encounter Location Date Provider Diagnosis [facility] [address] [place] [phone] 06/24/2024 Cesario Domínguez Jr PLAN OF TREATMENT No Information
== END 2024-07-23 11:53 | disposition home or self-care (01) ==
PROVIDERS: PCP Nurse Practitioner Family; Visit Provider Nurse Practitioner Family
DX: F17.200 Nicotine dependence, unspecified, uncomplicated (principal); E11.9 Type 2 diabetes mellitus without complications; Z13.9 Encounter for screening, unspecified

== ENCOUNTER → 2024-07-23 11:02 | Outpatient (BNVA) | payer OTHER, SELFPAY | PROVIDERS: PCP Nurse Practitioner Family; Visit Provider Nurse Practitioner Family | DX: E11.9 Type 2 diabetes mellitus without complications (principal); F17.210 Nicotine dependence, cigarettes, uncomplicated | CPT/HCPCS: 83036; 96127 ==

== ENCOUNTER 2024-08-12 23:20 | Emergency (ER) | payer OTHER, SELFPAY ==
--- NOTE | ~2024-08-12 | CT_ITS ---
CLINICAL HISTORY: bilateral lower quad pain, hx diverticulitis CT abdomen and pelvis with contrast Comparison: CT/FL/SR - CT ABDOMEN PELVIS W IV CON - 05/25/24 20:41 EST Findings: Minor atelectasis dependently at both lung bases. Small segment 6 liver cyst. Right parapelvic renal cyst 6 cm. Gallbladder and solid organs otherwise unremarkable. No urolithiasis. Proximal sigmoid 8 cm segment of wall thickening with perisigmoid fat stranding. Uterus and ovaries unremarkable. Normal appendix. No acute fracture. IMPRESSION: Sigmoid diverticulitis without abscess. This document has been electronically signed by: Arnel Hall MD on 08/13/2024 05:23:46
[2024-08-12 23:30] VITALS: BP 154/83; PULSE 91; RESP 18; TEMP 36.6; O2SAT 100; BMI 31.9
[2024-08-12 23:53] LABS: MANUAL DIFF FLAG NO
[2024-08-12 23:54] LABS: Basophils Percent Auto 0.2 % (0-2); Eosinophils Absolute Auto 0.1 X10*3/uL (0.0-0.4); Eosinophils Percent Auto 0.8 % (0-4); Hematocrit 36.7 % (37.0-47.0); Hemoglobin 12.7 g/dl (12.0-16.0); Imm Gran Abs Auto 0.04 X10*3/uL (0.00-0.03); Imm Gran Pct Auto 0.4 % (0.0-0.4); Lymphocytes Absolute Auto 2.5 X10*3/uL (1.2-4.9); Lymphocytes Percent Auto 22.9 % (20-40); Mean Corpuscular HGB Conc 34.6 g/dl (31.0-35.0); Mean Corpuscular Volume 86.8 fL (80.0-98.0); Mean Platelet Volume 10.4 fL (9.4-12.3); Monocytes Absolute Auto 0.7 X10*3/uL (0.1-1.2); Monocytes Percent Auto 6.3 % (2-11); Neutrophils Absolute Auto 7.7 x10*3/uL (2.0-8.3); Neutrophils Percent Auto 69.4 % (45-73); Platelet Count 278 X10*3/uL (160-400); Red Blood Count 4.23 X10*6/uL (4.20-5.50); Red Cell Distribution Width 13.6 % (11.0-16.0)
[2024-08-13 00:10] LABS: Alanine Aminotransferase 25 U/L (0-31); Alkaline Phosphatase 64 U/L (39-117); Anion Gap 12 (12-20); Aspartate Amino Transferase 18 U/L (5-31); Bilirubin Direct 0.1 mg/dL (0.0-0.5); Bilirubin Total 0.4 mg/dL (0.0-1.0); Blood Urea Nitrogen 11 mg/dL (9-16); Calcium 9.2 mg/dL (8.4-10.2); Carbon Dioxide 21 mmol/L (22-29); Chloride 111 mmol/L (96-108); Creatinine Clr Calc Pharmacy 101.9; Estimated Glomerular Filt Rate > 60; Glucose Random 126 mg/dL (60-115); Lipase 32 U/L (8-78); Potassium 3.7 mmol/L (3.3-5.1); Sodium 140 mmol/L (135-145); Total Protein 7.3 g/dL (6.5-8.0)
[2024-08-13 00:30] LABS: Influenza A PCR NEGATIVE (Negative); Influenza B PCR NEGATIVE (Negative); Resp Syncy Virus RNA Qual PCR NEGATIVE (Negative); SARS COV2 PCR INHOUSE NEGATIVE (Negative)
--- OUTSIDE RECORDS SUMMARY | 2024-08-13 02:28 | XMS_ITS ---
Author Organization [facility] Address [address] [place] [phone] Care Team Providers Care Associate Pathologist Name Role Phone NABILA GARCIA Primary Care Provider Cesario Lloyd Jr REASON FOR VISIT 1 year office recall Encounters Encounter Location Date Provider Diagnosis [facility] [address] [place] [phone] 06/24/2024 Cesario Domínguez Jr Plan Of Treatment No Information Progress Notes * KRAIG BROOKE MDOB: [birth year] (53 yo F)Acc No.[id number]:06/24/2024 Patient:?KRAIG BROOKE :1970???Age:53 Y???Sex:Female Address:[address] [place] [address], [address] * true * Date:? Generated for Vivian bowling/Destiney/eTransmitting on:?08/13/2024 02:28 AM EDT
--- OUTSIDE RECORDS SUMMARY | 2024-08-13 02:28 | XMS_ITS | Patient Health Record ---
Author Organization [facility] Address [address] [place] [address] Care Team Providers Care Stone Fabricator Name Role Phone NABILA GARCIA Primary Care Provider Cesario Lloyd Jr Unavailable Allergies Allergen (clinical drug ingredient) Drug/Non Drug Allergy documented on EMR Reaction Allergy Type Onset Date Status Substance with sulfonamide structure and antibacterial mechanism of action (substance) Sulfa Antibiotics Unknown Drug Allergy Active seasonal (uncoded) Unknown Allergy A ctive Reason For Referral No Information Medications Medication SIG (Take, Route, Frequency, Duration) Notes [...] application Exter lavon Twice a day Active Immunizations Vaccine Route Administration Date Status Comme nts Influenza Unknown 02/25/2024 Administered Social History Tobacco Use: Social History Observation Description Date Details (start date - stop date) Current Smoker NA - NA Tobacco Use/Smoking Question Answer Notes Patient is a current smoker Alcohol Screen Question Answer Notes Did you have a drink containing alcohol in the p ast year? No Points 0 Interpretation Negative Problems Problem Type SNOMED Code ICD Code Onset Dates Problem Status W/U Status Risk Notes Problem [id number] Diverticulitis (K57.92) Active confirmed Problem 85260597 Pancreatic cyst (K86.2) Active confirmed Vital Signs Temperature 97.3 degrees Fahrenheit 06/17/2024 Blood pressure diastolic 00 mm Hg 06/17/2024 Height 5 ft 7 in in 06/17/2024 Blood pressure systolic 000 mm Hg 06/17/2024 Weight 215 lb 6 oz lbs 06/17/2024 BMI 33.73 kg/m2 06/17/2024 Encounters Encounter Location Date Provider Diagnosis [facility] [address] [place] [phone] 06/17/2024 Cesario Domínguez Jr Pancreatic cyst K86.2 and Diverticulitis K57.92 [facility] [address] [place] [phone] 06/24/2024 Cesario Domínguez Jr Assessments Encounter Date Diagnosis (ICD Code) Assessment Notes Treatment Notes Treatment Clinical Notes Section Notes 06/17/2024 Diverticulitis (ICD-10 - K57.92) We discussed cystic lesions of the pancreas today. 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 Based on her imaging to date, she will likely need followup imaging in 6-12 months. We discussed this today. We discussed diverticulitis. She should follow a high-fiber diet. She will call she has any problems. She is up-to-date on colorectal cancer screening. 06/17/2024 Pancreatic cyst (ICD-10 - K86.2) Diverticulitis and diverticulosis - discharge material was printed We discussed cystic lesions of the pancreas today. 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 Based on her imaging to date, she will likely need followup imaging in 6-12 months. We discussed this today. We discussed diverticulitis. She should follow a high-fiber diet. She will call she has any problems. She is up-to-date on colorectal cancer screening. Plan Of Treatment No Information Insurance Providers Payer Name Payer Address Payer Phone Subscriber Number Group Number Insured Name Patient Relationship to Insured Coverage Start Date Coverage End Date [facility] [address] [facility] [place] [phone] [id number] KRAIG BROOKE Self - patient is the insured Medical (General) History Medical History History ICD Code Hypertension Diabetes mellitus type 2 with neuropathy Hyperlipidemia Colonoscopy 12/24, tubular adenoma, seven -year followup Lupus/Sjogren's syndrome Diverticulitis Pancreatic head lesion Surgical History Surgery Date(Month/Year) Tubal ligation Skin graft to foot Urethral sling
--- NOTE | 2024-08-13 03:25 | ED.ABDPAIN ---
HPI - Abdominal Pain General Chief Complaint: Abdominal Pain Stated Complaint: diverticulitis? Time Seen by Provider: 08/13/24 02:56 Source: patient Mode of arrival: ambulatory Limitations: no limitations History of Present Illness ED Provider: Dr. Rosi Tamez HPI narrative: patient comes to the emergency room complaining of 1 day of nausea and diarrhea intermittently for 3 weeks but severe bilateral lower quadrant pain for 1 day. Patient denies fever chills, denies hematuria or dysuria. Patient denies any abdominal surgeries. 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 According to the patient, they will repeat the MRI in a few months in compare the size. At this time, no further plans. Related Data Home Medications ?Medication ?Instructions ?Recorded ?Confirmed qnoaljjzkkys-ufunyzvs-bqtlrk tablet 1 tab PO DAILY 03/22/22 04/21/24 turmeric root extract 500 mg tablet 1,000 mg PO DAILY 09/03/23 04/21/24 Previous Rx's ?Medication ?Instructions ?Recorded alcohol swabs (Alcohol Prep Pads) 1 pad topical DAILY #200 ea 05/06/20 blood-glucose meter (FreeStyle #1 ea 05/06/20 Lite Meter kit) albuterol sulfate 90 mcg/actuation 1 inh inhalation QID PRN shortness 12/26/22 aerosol inhaler (Ventolin HFA) of breath or wheezing #8.5 grams blood sugar diagnostic (FreeStyle 1 strip miscellaneous .COMPLEX 06/09/23 Lite Strips) #200 ea lancets 28 gauge (FreeStyle 28 gauge miscellaneous .COMPLEX 06/09/23 Lancets) #200 ea losartan 25 mg tablet 25 mg PO DAILY #90 tabs 12/31/23 sumatriptan succinate 50 mg tablet 50 mg PO ONCE PRN migraine 12/31/23 headache 30 days #30 tabs magnesium oxide 400 mg PO DAILY #30 tabs 02/17/24 semaglutide 1 mg/dose (4 mg/3 mL) 1 mg (0.75 mL) subcut QWEEK #9 mL 03/02/24 subcutaneous pen injector atorvastatin 10 mg tablet 10 mg PO BEDTIME #90 tabs 05/26/24 ibuprofen 800 mg tablet 800 mg PO BID PRN pain 30 days #60 07/15/24 tabs levofloxacin 500 mg tablet 500 mg PO DAILY #9 tabs 08/13/24 metronidazole 500 mg tablet 500 mg PO BID #19 tabs 08/13/24 oxycodone 5 mg tablet 5 mg PO Q8H PRN pain #9 tabs 08/13/24 polyethylene glycol 3350 17 17 g PO DAILY PRN laxative effect 08/13/24 gram/dose oral powder (Miralax) #238 grams Allergies Allergy/AdvReac Type Severity Reaction Status Date / Time Sulfa (Sulfonamide Allergy Mild itchy Verified 08/12/24 23:31 Antibiotics) Review of Systems Review of Systems Constitutional : No Weight loss, No Fever, No Chills, No Night Sweats, No Fatigue, No Malaise ENT/Mouth : No Hearing loss, No Ear Pain, No Nasal Congestion, No Sinus Pain, No Hoarseness, No sore throat, No Rhinorrhea, No Swallowing Difficulty Eyes: No Eye Pain, No Swelling, No Redness, No Foreign Body, No Discharge, No Vision Changes Cardiovascular : No Chest Pain, No SOB, No Dyspnea on Exertion, No Orthopnea, No Edema, No Palpitations Respiratory : No Cough, No Sputum, No Wheezing, No Smoke Exposure, No Dyspnea Gastrointestinal : Complaining of nausea, no vomiting, complaining of intermittent diarrhea, complaining of bilateral lower quadrant pain Genitourinary : no irregular bleeding, No Dysuria, No Urinary Frequency, No Hematuria, No Urinary Incontinence, No Urgency, No Flank Pain, No Urinary Flow Changes, No Hesitancy Musculoskeletal : No joint pain, No Myalgias, No Joint Swelling Skin : No Skin Lesions, No rash Neuro : No Weakness, No Numbness, No Paresthesias, No Loss of Consciousness, No Dizziness, No Headache Psych : No Anxiety/Panic, No Depression, No SI/HI/AH/VH, No Social Issues, Heme/Lymph: No Bruising, No Bleeding,No Lymphadenopathy Endocrine : No Polyuria, No Polydipsia, No Temperature Intolerance PMFSH Past Medical History Medical History Encounter for routine adult health examination without abnormal findings Encounter for screening for respiratory tuberculosis Restless legs syndrome (RLS) Burning sensation Diabetes NUNO (obstructive sleep apnea) Sjogrens syndrome HTN (hypertension) Surgical History H/O tubal ligation History of foot surgery H/O LEEP Family History Family History Father No problems noted. Mother HTN (hypertension) IDDM (insulin dependent diabetes mellitus) Breast cancer Maternal Grandmother History of heart attack Breast cancer Maternal Grandfather History of heart attack Diabetes mellitus Paternal Grandfather No problems noted. Paternal Grandmother No problems noted. Maternal Aunt Cancer Maternal Uncle Lung cancer Smoker Brother No problems noted. Brother No problems noted. Brother No problems noted. Brother No problems noted. Son No problems noted. Son No problems noted. Daughter Healthy female Daughter Healthy female Social History Social History Housing: House Alcohol intake: never Patient Tobacco Use Status: Current everyday Tobacco user Tobacco use type: Cigarette Cigarette Packs Per Day: 1 Cigarettes Per Day: 20.0 e-Cigarette/Vaping Use: Never Used Second Hand Smoke Exposure: No Substance Use Type: Marijuana Advance Directives: No Advance Directives Information Provided: Yes Do you have a plan to hurt others: No Plan Current occupational status: employed Cognitive needs: No Hearing needs: No Vision needs: No Physical Exam ED Vital Signs: Vital Signs - 24 hr 08/12/24 23:30 08/13/24 05:48 Temperature 97.9 F 97.9 F Pulse Rate 91 89 Respiratory Rate 18 19 Blood Pressure 154/83 H 147/75 H Pulse Oximetry 100 96 Oxygen Delivery Method Room Air Room Air BMI result Body Mass Index 31.9 Const Other: Appearance: Alert. Oriented X3. No acute distress. Eyes: Pupils equal, round and reactive to light. ENT: Pharynx normal. Neck: Normal inspection. Neck supple. No lymph nodes noted. No crepitus CVS: Normal heart rate and rhythm. Pulses normal. Normal S1 and S2 Respiratory: No respiratory distress. Breath sounds normal. No Wheezing. No rales Abdomen: Soft , tenderness to palpation in suprapubic area and bilateral lower quadrants, no rebound or guarding Skin: Skin warm and dry. Normal skin color. Normal skin turgor. Extremities: No lower extremity edema. No Lacerations. No Rash Neuro: Oriented X 3. No motor deficit. No sensory deficit. Moving all extremities. No slurred speech. CN 2 through 12 grossly intact Psych: calm, cooperative, normal affect Course Course Course Narrative: patient receiving IV fluids, Zofran and morphine. CT scan of the abdomen pending Medical Decision Making Medical Decision Making [facility] Narrative: my interpretation of labs, patient's white blood cell count slightly elevated at 11, LFTs and chemistry within normal limits, serology negative for COVID and influenza. patient did not give urine. However, patient will be treated with antibiotics which will cover for UTI any ways. CT scan shows diverticulitis without abscess or perforation. I discussed with the patient that we can admit her for pain control and monitor symptoms. Patient states that she prefers to go home Differential Diagnosis Differential Diagnoses: The differential diagnosis associated with the presentation includes ( diverticulitis, small-bowel obstruction, bowel perforation) Admission/Observation Consideration of admission/observation: Escalation of care including admission/observation considered ( admission was offered, patient declined) Lab Data [facility] Lab Attestation statement: I reviewed the patient's lab results. 08/12/24 23:46 08/12/24 23:46 Labs: Lab Results 08/12/24 Range/Units 23:46 WBC 11.0 H (4.8-10.8) X10*3/uL RBC 4.23 (4.20-5.50) X10*6/uL Hgb 12.7 (12.0-16.0) g/dl Hct 36.7 L (37.0-47.0) % MCV 86.8 (80.0-98.0) fL MCH 30.0 (27.0-33.0) pg MCHC 34.6 (31.0-35.0) g/dl RDW 13.6 (11.0-16.0) % Plt Count 278 (160-400) X10*3/uL MPV 10.4 (9.4-12.3) fL Immature Gran % (Auto) 0.4 (0.0-0.4) % Neut % (Auto) 69.4 (45-73) % Lymph % (Auto) 22.9 (20-40) % Thomas % (Auto) 6.3 (2-11) % Eos % (Auto) 0.8 (0-4) % Baso % (Auto) 0.2 (0-2) % Lymph # (Auto) 2.5 (1.2-4.9) X10*3/uL Thomas # (Auto) 0.7 (0.1-1.2) X10*3/uL Eos # (Auto) 0.1 (0.0-0.4) X10*3/uL Baso # (Auto) 0.0 (0.0-0.2) X10*3/uL Abs Immat Gran (auto) 0.04 H (0.00-0.03) X10*3/uL Absolute Neuts (auto) 7.7 (2.0-8.3) x10*3/uL Absolute Nucleated RBC 0.000 (0.0-0.012) X10*3/uL Nucleated RBC % (auto) 0.0 (0.0-0.2) /100WBC Sodium 140 (135-145) mmol/L Potassium 3.7 (3.3-5.1) mmol/L Chloride 111 H (96-108) mmol/L Carbon Dioxide 21 L (22-29) mmol/L Anion Gap 12 (12-20) BUN 11 (9-16) mg/dL Creatinine 0.77 (0.5-1.4) mg/dL Estim Creat Clear Calc 101.9 Estimated GFR > 60 Random Glucose 126 H (60-115) mg/dL Calcium 9.2 (8.4-10.2) mg/dL Total Bilirubin 0.4 (0.0-1.0) mg/dL Direct Bilirubin 0.1 (0.0-0.5) mg/dL AST 18 (5-31) U/L ALT 25 (0-31) U/L Alkaline Phosphatase 64 (39-117) U/L Total Protein 7.3 (6.5-8.0) g/dL Albumin 4.0 (3.5-5.0) g/dL Lipase 32 (8-78) U/L Influenza Type A (PCR) NEGATIVE (Negative) Influenza Type B (PCR) NEGATIVE (Negative) RSV RNA Qual (PCR) NEGATIVE (Negative) SARS-CoV-2 RNA (RT-PCR) NEGATIVE (Negative) Independent Interpretation I performed an independent interpretation of an: CT Scan Radiology Impression Discussion of test interpretation with radiology: I have reviewed the radiologist's reading. Radiologist Impression: Small segment 6 liver cyst. Right parapelvic renal cyst 6 cm. Gallbladder and solid organs otherwise unremarkable. No urolithiasis. Proximal sigmoid 8 cm segment of wall thickening with perisigmoid fat stranding. Uterus and ovaries unremarkable. Normal appendix. No acute fracture. IMPRESSION: Sigmoid diverticulitis without abscess. Medications Administered Discontinued Medications Generic Name Dose Route Start Last Admin Trade Name Freq PRN Reason Stop Dose Admin Sodium Chloride 1,000 mls @ 999 mls/hr 08/13/24 03:21 08/13/24 03:38 Ns IVCONT 08/13/24 04:21 999 mls/hr .Q1H1M ONE Administration Iohexol 85 ml 08/13/24 03:52 08/13/24 03:53 Iohexol 350 Mg/Ml 100 Ml Infus..Btl IV 08/13/24 03:53 85 ml ONCE ONE Administration Morphine Sulfate 4 mg 08/13/24 03:21 08/13/24 03:40 Morphine Sulfate 4 Mg/Ml Cartridge IVPUSH 08/13/24 03:22 4 mg ONCE ONE Administration Protocol Ondansetron HCl 4 mg 08/13/24 03:21 08/13/24 03:39 Ondansetron Hcl 4 Mg/2 Ml Vial IVPUSH 08/13/24 03:22 4 mg ONCE ONE Administration Critical Care Time Critical Care Time Critical Care Time: Yes Total Critical Care Time: 45 Attestation: I have personally provided critical care time. Time includes review of lab data, radiology results, discussion with consultants, and monitoring for potential decompensation. Intervention performed as documented. Discharge Plan Discharge Clinical Impression: Diverticulitis Patient Disposition: Home, Self-Care Instructions: Diverticulitis (ED), Diverticulitis Diet (ED) Additional Instructions: Please follow-up with your primary care physician tomorrow. If you have any worsening or new symptoms, please return to the emergency room or call 911 Prescriptions: New levofloxacin 500 mg tablet 500 mg PO DAILY Qty: 9 0RF metronidazole 500 mg tablet 500 mg PO BID Qty: 19 0RF oxycodone 5 mg tablet 5 mg PO Q8H PRN (Reason: pain) Qty: 9 0RF Rx Instructions: Partial Fill upon patient request. polyethylene glycol 3350 [Miralax] 17 gram/dose powder 17 g PO DAILY PRN (Reason: laxative effect) Qty: 238 0RF No Action (DME) blood-glucose meter [FreeStyle Lite Meter] Kit See Rx Instructions .ROUTE .MEDSUPPLY Qty: 1 0RF Rx Instructions: As directed alcohol swabs [Alcohol Prep Pads] Pads, Medicated 1 pad topical DAILY Qty: 200 0RF albuterol sulfate [Ventolin HFA] 90 mcg/actuation HFA aerosol inhaler 1 inh inhalation QID PRN (Reason: shortness of breath or wheezing) Qty: 8.5 1RF FreeStyle Lite Strips Strip 1 strip miscellaneous .COMPLEX Qty: 200 1RF Rx Instructions: 1 strip miscellaneous twice a day; lancets [FreeStyle Lancets] 28 gauge misc 28 gauge miscellaneous .COMPLEX Qty: 200 1RF Rx Instructions: 28 gauge miscellaneous twice a day testing; twice a day testing losartan 25 mg tablet 25 mg PO DAILY Qty: 90 1RF sumatriptan succinate 50 mg tablet 50 mg PO ONCE PRN (Reason: migraine headache) 30 Days Qty: 30 0RF semaglutide 1 mg/dose (4 mg/3 mL) pen injector 1 mg subcut QWEEK Qty: 9 1RF atorvastatin 10 mg tablet 10 mg PO BEDTIME Qty: 90 1RF ibuprofen 800 mg tablet 800 mg PO BID PRN (Reason: pain) 30 Days Qty: 60 0RF qamabipvpkhy-ziwmabhq-yibyrf Tablet 1 tab PO DAILY turmeric root extract 500 mg tablet 1,000 mg PO DAILY magnesium oxide 400 mg magnesium tablet 400 mg PO DAILY Qty: 30 6RF Print Language: Cypriot
[2024-08-13] MEDS: 0.9 % Sodium Chloride 1,000 ML 999 ML IVCONT (03:38)
[2024-08-13] MEDS: ondansetron HCL 4 MG/2 ML VIAL IVPUSH (03:39)
[2024-08-13] MEDS: Morphine Sulfate 4 MG/ML CARTRIDGE IVPUSH (03:40)
--- NOTE | 2024-08-13 03:50 | PC.NURSE ---
Pt to CT at this time
[2024-08-13] MEDS: iohexoL 350 MG/ML 100 ML INFUS..BTL 85 ML IV (03:53)
[2024-08-13 05:48] VITALS: BP 147/75; PULSE 89; RESP 19; TEMP 36.6; O2SAT 96
[2024-08-13] MEDS: Morphine Sulfate 2 MG/ML CARTRIDGE IVPUSH (06:13)
[2024-08-13] MEDS: levoFLOXacin 500 MG TABLET PO (06:25)
[2024-08-13] MEDS: metroNIDAZOLE 500 MG TABLET PO (06:25)
[2024-08-13 06:33] VITALS: BP 147/75; PULSE 89; RESP 19; TEMP 36.6; O2SAT 96
== END 2024-08-13 06:33 | disposition home or self-care (01) ==
PROVIDERS: Emergency Provider Emergency Medicine; PCP Nurse Practitioner Family
DX: K57.32 Diverticulitis of large intestine without perforation or abscess without bleeding (principal); R11.2 Nausea with vomiting, unspecified; R10.30 Lower abdominal pain, unspecified; F17.210 Nicotine dependence, cigarettes, uncomplicated; Z03.818 Encounter for observation for suspected exposure to other biological agents ruled out; Z79.899 Other long term (current) drug therapy
CPT/HCPCS: 0241U; 36415; 74177; 80053; 82248; 83690; 85025; 96361; 96374; 96375; 96376; 99283; 99284; J2270; J2405; Q9967

== ENCOUNTER → 2024-08-13 03:21 | Outpatient (BNV) | payer OTHER, SELFPAY | PROVIDERS: Emergency Provider Emergency Medicine; PCP Nurse Practitioner Family; Visit Provider Radiology Diagnostic Radiology | DX: K57.32 Diverticulitis of large intestine without perforation or abscess without bleeding (principal) | CPT/HCPCS: 74177 ==

== ENCOUNTER 2024-08-18 11:25 | Outpatient (AMB) | payer OTHER, SELFPAY ==
[2024-08-18 11:41] VITALS: BP 128/86; PULSE 87; TEMP 36.7; O2SAT 97; BMI 32.0
--- NOTE | 2024-08-18 11:41 | AM.OFFWIN_ITS ---
Intake Vital Signs 08/18/24 11:41 Height 5 ft 8 in Weight 210 lb 4 oz BMI 32.0 BP 128/86 Blood Pressure Location Lt brachial Position Sitting Pulse 87 Pulse Source Pulse Oximeter Temp 98.0 F Temp Source Oral Pulse Oximetry (%) 97 Oxygen Delivery Method Room Air Intake Visit Reasons: EP Diarrhea/hemorrhoid Intake Note: Pt presents to the office today for c/o diarrhea and hemorrhoids x1 month. Pt states she was seen at the ED about a month ago and was diagnosed with diverticulitis. Pt states since then she has been having 2-3 bouts of diarrhea a day. Patient Tobacco Use Status: Current everyday Tobacco user Allergies Sulfa (Sulfonamide Antibiotics) Allergy (Mild, Verified 08/18/24 11:46) itchy HPI HPI Comments History of Present Illness Details Patient is a 53-year-old female with a past medical history of diverticulitis complaining of continue diarrhea with a bump near her anus. She tells me she went to the emergency department on August 13, was diagnosed with diverticulitis and given 10 days of Flagyl and Levaquin as well as oxycodone and MiraLax. She has been taking the medications as prescribed in his on day 5 of 10 of treatment. Now, she states she has a very painful bubble near her anus and she is concerned. She has been using tucks pads with out much relief. She is also endorsing some nausea that is making it difficult for her to eat. She tells me that after she was treated for diverticulitis in May, she still had diarrhea but the abdominal pain went away. She tells me she has pretty much had diarrhea consistently since May.. She states that she has changed her diet is not eating popcorns or nuts or seeds, as instructed. [facility] Medical History Encounter for routine adult health examination without abnormal findings Encounter for screening for respiratory tuberculosis Restless legs syndrome (RLS) Burning sensation Diabetes NUNO (obstructive sleep apnea) Sjogrens syndrome HTN (hypertension) Surgical History H/O tubal ligation History of foot surgery H/O LEEP Family History Father No problems noted. Mother HTN (hypertension) IDDM (insulin dependent diabetes mellitus) Breast cancer Maternal Grandmother History of heart attack Breast cancer Maternal Grandfather History of heart attack Diabetes mellitus Paternal Grandfather No problems noted. Paternal Grandmother No problems noted. Maternal Aunt Cancer Maternal Uncle Lung cancer Smoker Brother No problems noted. Brother No problems noted. Brother No problems noted. Brother No problems noted. Son No problems noted. Son No problems noted. Daughter Healthy female Daughter Healthy female Social History Housing: House Alcohol intake: never Patient Tobacco Use Status: Current everyday Tobacco user Tobacco use type: Cigarette Cigarette Packs Per Day: 1 Cigarettes Per Day: 20.0 e-Cigarette/Vaping Use: Never Used Second Hand Smoke Exposure: No Substance Use Type: Marijuana Current occupational status: employed Cognitive needs: No Hearing needs: No Vision needs: No Female Reproductive History Menstrual Age of Menarche: 12 Review of Systems Const All systems reviewed & are unremarkable except as noted in HPI and below Physical Exam Vital Signs: Last Vital Signs Temp 98.0 F 08/18/24 11:41 Pulse 108 H 08/18/24 11:41 BP 128/86 08/18/24 11:41 Pulse Ox 97 08/18/24 11:41 Oxygen Delivery Method Room Air 08/18/24 11:41 BMI result Body Mass Index 32.0 Assessment & Plan Assessment & Plan (1) Hemorrhoids: Comment: Large hemorrhoids, declined surgical referral due to COpay Declines hydrocortisone due to cost- Code(s): K64.9 - Unspecified hemorrhoids Qualifiers: Hemorrhoid type: unspecified Qualified Code(s): K64.9 - Unspecified hemorrhoids Plan: Able to reduce in office easily and taught patient how to self reduce. Likely in inflamed and irritated due to the diarrhea. Recommended [id number] medications to treat her symptoms. Recommended she complete her 10 days of antibiotics and if the diarrhea remains, she should follow up with her PCP or GI. (2) Diverticulitis: Code(s): K57.92 - Diverticulitis of intestine, part unspecified, without perforation or abscess without bleeding Plan: as above (3) Nausea: Code(s): R11.0 - Nausea Plan: We will send Zofran Medications: New ondansetron 4 mg PO Q8H PRN 10 tabs 0RF nausea and vomiting Coding Level of Care Code Est Pt Level 4 (23933) Diagnoses Hemorrhoids, unspecified hemorrhoid type K64.9 Hemorrhoid type: unspecified Diverticulitis K57.92 Nausea R11.0
--- OUTSIDE RECORDS SUMMARY | 2024-08-18 13:56 | XMS_ITS ---
Author Organization [facility] Address [address] [place] [address] Care Team Providers Care Engineer System Administrator Name Role Phone NABILA GARCIA Primary Care Provider Cesario Lloyd Jr Unavailable Allergies Allergen (clinical drug ingredient) Drug/Non Drug Allergy documented on EMR Reaction Allergy Type Onset Date Status Substance with sulfonamide structure and antibacterial mechanism of action (substance) Sulfa Antibiotics Unknown Drug Allergy Active seasonal (uncoded) Unknown Allergy A ctive REASON FOR VISIT Patient presents today for a CYST ON PANCREAS Medications Medication SIG (Take, Route, Frequency, Duration) [...] Once a day for 30 day(s) Active Social History Tobacco Use: Social History Observation [...] Problem Status W/U Status Risk Notes Problem [id number] Pancreatic cyst (K86.2) Active confirmed Problem [id number] Diverticulitis (K57.92) Active confirmed Vital Signs Temperature 97.3 degrees Fahrenheit 06/17/19 25 Blood pressure systolic 000 mm Hg 06/17/19 25 Blood pressure diastolic 00 mm Hg 025 Height 5 ft 7 in in 06/17/2024 Weight 215 lb 6 oz lbs 06/17/2024 BMI 33.73 kg/m2 06/17/2024 Encounters Encounter Location Date Provider Diagnosis [facility] [address] [place] [address] 06/17/2024 Cesario Domínguez Jr Pancreatic cyst K86.2 and Diverticulitis K57.92 Assessments Encounter Date Diagnosis (ICD Code) Assessment Notes Treatment Notes Treatment Clinical Notes Section Notes 06/17/2024 Pancreatic cyst (ICD-10 - K86.2) [...] is up-to-date on colorectal cancer screening. 06/17/2024 Diverticulitis (ICD-10 - K57.92) We discussed [...] on colorectal cancer screening. Plan Of Treatment Treatment Notes Assessment Notes Pancreatic cyst Diverticulitis and d iverticulosis - discharge material was printed Next Appt Details Follow Up: 1 Year, Reason: Progress Notes * ROSA BROOKE MDOB: [birth year] (53 yo F)Acc No.[id number]:06/17/2024 Progress Notes Patient:?ROSA BROOKE Provider:?Cesario Domínguez MD :1970???Age:53 Y???Sex:Female D ate:06/17/2024 Address:[address] [place], [place] [id number] Pcp:NABILA GARCIA Subjective: * Chief Complaints: * ???1. Patient presents today for a CYST ON PANCREAS. * HPI: ???New symptom(s):? Rosa is a pleasant 53-year-old woman seen today in consultation. She developed abdominal pain and was seen in the emergency department in May. She was diagnosed with uncomplicated sigmoid diverticulitis and treated with antibiotics. CT imaging was done confirming the diverticulitis and there was also seen a 7.5 mm cyst in the head of the pancreas for which further evaluation was recommended. She had MRI imaging today and the reading is pending. My review of the images shows a cyst in the uncinate process which does not appear to communicate with the pancreatic duct. We will await the final reading. ?She has no complaints of abdominal pain at this time. She did have colonoscopy in December of 2023 with removal of a small tubular adenoma. She has been aware of a diagnosis of diverticulosis for years, but never had any symptoms until recently. There is no family history of pancreatic cancer, however her mother did have pancreatitis, cause unknown. * ROS:?General/Constitutional:?Change in appetite?denies.?Fatigue?denies.?ENT:?Patient denies?difficulty swallowing.?Respiratory:?Patient denies?shortness of breath.?Cardiovascular:?Patient denies?chest pain.?Gastrointestinal:?Comments?See HPI for details.?Genitourinary:?Difficulty urinating?denies.?Incontinence?denies.?Musculoskeletal:?Patient denies?muscle aches.?Skin:?Patient denies?pruritis.?Neurologic:?Patient denies?low back pain.?Psychiatric:?Patient denies?mental or physical abuse.? * Medical History:?Hypertensio n, Diabetes mellitus type 2 with neuropathy, Hyperlipidemia, Colonoscopy 12/24, tubular adenoma, seven-year followup, Lupus/Sjogren's syndrome, Diverticulitis, Pancreatic head lesion. * Surgical History:?Tubal liga tion , Skin graft to foot , Urethral sling . * Family History:?Father: unkn own.?Mother: .? * Social History:?Tobacco Use:?Tobacco Use/Smoking?Patient is a?current smoker.?Drugs/Alcohol:?Alcohol Screen?Did you have a drink containing alcohol in the past year??No,?Points?0,?Interpretation?Negative.?Miscellaneous:?Marital status: single. Occupation: works full-time. * Medications:?Taking SUMAtrip ford 5 MG/ACT Solution 1 spray at onset of headache in one nostril may repeat dose after 2 hours as needed Nasally Once a day, Taking metroNIDAZOLE 0.75 % Cream 1 application Externally Twice a day, Taking Semaglutide(0.25 or 0.5MG/DOS) 2 MG/1.5ML Solution Pen-injector as directed Subcutaneous , Taking Magnesium 300 MG Capsule 1 capsule with a meal Orally Once a day, Taking Losartan Potassium 25 MG Tablet 1 tablet Orally Once a day, Taking Ibuprofen 800 MG Tablet 1 tablet with food or milk as needed Orally every 8 hrs, Taking Atorvastatin Calcium 40 MG Tablet 1 tablet Orally Once a day, Taking Turmeric - Powder as directed , Taking Multi Vitamin - Tablet 1 tablet Orally Once a day, Taking Albuterol 90 MCG/ACT Aerosol Solution as directed Inhalation , Medication List reviewed and reconciled with the patient * Allergies:?Sulfa Antibiotics , seasonal. Objective: * Vitals:?Wt: 215 lb 6 oz, Ht: 5 ft 7 in, BMI:33.73 Index, BP: 000/00 mm Hg, Temp: 97.3. * Examination: ???General Examination: ?GENERAL APPEARANCE:?in no acute distress.?HEAD:?normocephalic.?EYES:?sclera non-icteric.?ORAL CAVITY:?mucosa moist.?NECK/THYROID:?no lymphadenopathy.?SKIN:?anicteric.?HEART:?S1, S2 normal, no murmurs.?LUNGS:?clear to auscultation bilaterally.?CHEST:?normal shape and expansion.?ABDOMEN:?soft, nontender, nondistended, bowel sounds present, no organomegaly .?EXTREMITIES:?no clubbing, cyanosis, or edema.?PSYCH:?cognitive function intact.? Assessment: * Assessment: 1.?Pancreatic cyst - K86.2 ( Primary)?2.?Diverticulitis - K57.92? We discussed cystic lesions of the pancreas today. 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 Based on her imaging to date, she will likely need followup imaging in 6-12 months. We discussed this today. We discussed diverticulitis. She should follow a high-fiber diet. She will call she has any problems. She is up-to-date on colorectal cancer screening. Plan: * Treatment: * Procedure Codes:?3017F COLOR ECTAL CA SCREEN DOC REV, G9903 Pt scrn tbco id as non user, G9745 DOC RSN FOR NOT SCREEN/REC F/U HBP * Preventive Medicine:? ??Counseling:?Care goal follow-up plan:?Above Normal BMI Follow-up?Giving encouragement to exercise,?BMI management provided?Yes.?Smoking?Patient counseled on the dangers of tobacco use and urged to quit.?06/17/2024,?Relapse prevention:?Discussed the importance of a supportive environment and helped identify them..? * Follow Up:?1 Year * * Sign off status: Completed true * Provider:?Cesario Domínguez MD Date:?0 06/17/2024 Generated for Vivian bowling/Destiney/Meesmitting on:?08/18/2024 01:55 PM EDT History and Physical Notes * HPI (History of Present Illness) Category Sub-Category Detail Notes Category Not es New symptom(s) Rosa is a pleasant 53-year-old woman seen today in consultation. She developed abdominal pain and was seen in the emergency department in May. She was diagnosed with uncomplicated sigmoid diverticulitis and treated with antibiotics. CT imaging was done confirming the diverticulitis and there was also seen a 7.5 mm cyst in the head of the pancreas for which further evaluation was recommended. She had MRI imaging today and the reading is pending. My review of the images shows a cyst in the uncinate process which does not appear to communicate with the pancreatic duct. We will await the final reading. She has no complaints of abdominal pain at this time. She did have colonoscopy in December of 2023 with removal of a small tubular adenoma. She has been aware of a diagnosis of diverticulosis for years, but never had any symptoms until recently. There is no family history of pancreatic cancer, however her mother did have pancreatitis, cause unknown. Examination Category Sub-Category Detail Notes Category Not es General Examination GENERAL APPEARANCE: in no acute di stress HEAD: normocephalic EYES: sclera non-icteric NECK/THYROID: no lymphadenopathy HEART: S1, S2 normal, no mu rmurs CHEST: normal shape and exp ansion LUNGS: clear to auscultatio n bilaterally ABDOMEN: soft, nontender, non distended, bowel sounds present, no organomegaly SKIN: anicteric EXTREMITIES: no clubbing, cyanosi s, or edema PSYCH: cognitive function i ntact ORAL CAVITY: mucosa moist
--- OUTSIDE RECORDS SUMMARY | 2024-08-18 13:56 | XMS_ITS | Patient Health Record ---
Author Organization [facility] Address [address] [place] [address] Care Team Providers Care Head Of Ethics And Compliance Name Role Phone NABILA GARCIA Primary Care Provider Cesario Lloyd Jr Unavailable [phone] Allergies Allergen (clinical drug ingredient) Drug/Non Drug [...] Problem Status W/U Status Risk Notes Problem [id number] Diverticulitis (K57.92) Active confirmed Problem 88250369 Pancreatic cyst (K86.2) Active confirmed Vital Signs Temperature 97.3 degrees Fahrenheit 06/17/2024 Blood pressure diastolic 00 mm Hg 06/17/2024 Height 5 ft 7 in in 06/17/2024 Blood pressure systolic 000 mm Hg 06/17/2024 Weight 215 lb 6 oz lbs 06/17/2024 BMI 33.73 kg/m2 06/17/2024 Encounters Encounter Location Date Provider Diagnosis [facility] [address] [place] [address] 06/17/2024 Cesario Domínguez Jr Pancreatic cyst K86.2 and Diverticulitis K57.92 [facility] [address] [place] [address] 06/24/2024 Cesario Domínguez Jr Assessments Encounter Date [...] Insured Coverage Start Date Coverage End Date [facility] [address] [facility] [place] [phone] [id number] KRAIG BROOKE Self - patient is the insured Medical (General) History Medical History History ICD Code Hypertension Diabetes mellitus type 2 with neuropathy Hyperlipidemia Colonoscopy 12/24, tubular adenoma, seven -year followup Lupus/Sjogren's syndrome Diverticulitis Pancreatic head lesion Surgical History Surgery Date(Month/Year) Tubal ligation Skin graft to foot Urethral sling
--- OUTSIDE RECORDS SUMMARY | 2024-08-18 13:56 | XMS_ITS ---
Author Organization [facility] Address [address] [place] [address] Care Team Providers Care Lip And Gate Builder Name Role Phone NAIBLA GARCIA Primary Care Provider Cesario Lloyd Jr [phone] REASON FOR VISIT 1 year office recall Encounters Encounter Location Date Provider Diagnosis [facility] [address] [place] [address] 06/24/2024 Cesario Domínguez Jr Plan Of Treatment No Information Progress Notes * KRAIG BROOKE MDOB: [birth year] (53 yo F)Acc No.[id number]:06/24/2024 Patient:?KRAIG BROOKE :1970???Age:53 Y???Sex:Female Address:[address] [place] [address], [address] * true * Date:? Generated for Vivian bowling/Destiney/eTransmitting on:?08/18/2024 01:55 PM EDT
== END 2024-08-18 12:15 | disposition home or self-care (01) ==
PROVIDERS: PCP Nurse Practitioner Family; Visit Provider Physician Assistant
DX: K64.9 Unspecified hemorrhoids (principal); K57.92 Diverticulitis of intestine, part unspecified, without perforation or abscess without bleeding; R11.0 Nausea

== ENCOUNTER → 2024-10-15 08:08 | Outpatient (BNV) | payer OTHER, SELFPAY | PROVIDERS: PCP Nurse Practitioner Family; Visit Provider Radiology Diagnostic Radiology | DX: D49.0 Neoplasm of unspecified behavior of digestive system (principal) | CPT/HCPCS: 74183 ==

== ENCOUNTER 2024-10-15 08:16 | Outpatient (REF) | payer OTHER, SELFPAY ==
--- NOTE | ~2024-10-15 | MR_ITS ---
CLINICAL HISTORY: D49.0 - Neoplasm of unspecified behavior of digestive system MR abdomen with and without gadolinium Comparison: CT/SR - CT ABDOMEN PELVIS W IV CON - 08/13/24 03:50 EDT MR/LA/SR - MR ABDOMEN WO/W CON - 06/17/24 09:27 EST Findings: Lung bases are clear. Heart size is normal. Stable multi lobular cyst within the right hepatic lobe posteriorly. Liver is otherwise within normal limits. Biliary tree, gallbladder, and pancreatic duct remain normal. The nonenhancing well-circumscribed high T2 intensity focus within the pancreatic uncinate process is unchanged, measuring 9 mm transverse by 7 mm anteroposterior and demonstrates no internal enhancement. Spleen and adrenals are within normal limits. Right parapelvic renal cyst within the inferior pole measuring 63 mm is not significantly changed. Kidneys otherwise are within normal limits. Visualized bowel loops and vasculature are normal in caliber. No adenopathy. Visualized osseous structures are within normal limits. IMPRESSION: 1. 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 Follow-up MRI in 1 year recommended. This document has been electronically signed by: Bladimir Mora MD on 10/15/2024 16:50:25
--- OUTSIDE RECORDS SUMMARY | 2024-10-15 08:26 | XMS_ITS | Patient Health Record ---
Author Organization [facility] Address [address] [place] [address] Care Team Providers Care Rn Concurrent Review Name Role Phone NABILA GARCIA Primary Care Provider Cesario Lloyd Jr Unavailable [phone] Allergies Allergen (clinical drug ingredient) Drug/Non Drug [...] Problem Status W/U Status Risk Notes Problem 408915119 Diverticulitis (K57.92) Active confirmed Problem 37213894 Pancreatic cyst (K86.2) Active confirmed Vital Signs Temperature 97.3 degrees Fahrenheit 06/17/2024 Blood pressure diastolic 00 mm Hg 06/17/2024 Height 5 ft 7 in in 06/17/2024 Blood pressure systolic 000 mm Hg 06/17/2024 Weight 215 lb 6 oz lbs 06/17/2024 BMI 33.73 kg/m2 06/17/2024 Encounters Encounter Location Date Provider Diagnosis [facility] [address] [place] [address] 06/17/2024 Cesario Domínguez Jr Pancreatic cyst K86.2 and Diverticulitis K57.92 [facility] [address] [place] [address] 06/24/2024 Cesario Domínguez Jr Assessments Encounter Date [...] Insured Coverage Start Date Coverage End Date [facility] [address] [facility] [place] [phone] [id number] KRAIG BROOKE Self - patient is the insured Medical (General) History Medical History History ICD Code Hypertension Diabetes mellitus type 2 with neuropathy Hyperlipidemia Colonoscopy 12/24, tubular adenoma, seven -year followup Lupus/Sjogren's syndrome Diverticulitis Pancreatic head lesion Surgical History Surgery Date(Month/Year) Tubal ligation Skin graft to foot Urethral sling
--- OUTSIDE RECORDS SUMMARY | 2024-10-15 08:26 | XMS_ITS ---
Author Organization [facility] Address [address] [place] [address] Care Team Providers Care Courier Driver Name Role Phone NABILA GARCIA Primary Care Provider Cesario Lloyd Jr Unavailable [phone] Allergies Allergen (clinical drug ingredient) Drug/Non Drug [...] Problem Status W/U Status Risk Notes Problem 36317308 Pancreatic cyst (K86.2) Active confirmed Problem 822360248 Diverticulitis (K57.92) Active confirmed Vital Signs Temperature 97.3 degrees Fahrenheit 06/17/19 25 Blood pressure systolic 000 mm Hg 06/17/19 25 Blood pressure diastolic 00 mm Hg 025 Height 5 ft 7 in in 06/17/2024 Weight 215 lb 6 oz lbs 06/17/2024 BMI 33.73 kg/m2 06/17/2024 Encounters Encounter Location Date Provider Diagnosis [facility] [address] [place] [address] 06/17/2024 Cesario Domínguez Jr Pancreatic cyst K86.2 [...] ROSA BROOKE MDOB: [birth year] (53 yo F)Acc No.[id number]:06/17/2024 Progress Notes Patient:?ROSA BROOKE Provider:?Cesario Domínguez MD :1970???Age:53 Y???Sex:Female D ate:06/17/2024 Address:[address] [place], [place] [id number] Pcp:NABILA GARCIA Subjective: * Chief Complaints: * [...] MD Date:?0 06/17/2024 Generated for Vivian bowling/Destiney/Meesmitting on:?10/15/2024 08:26 AM EDT History and Physical Notes * HPI [...]
--- OUTSIDE RECORDS SUMMARY | 2024-10-15 08:26 | XMS_ITS ---
Author Organization [facility] Address [address] [place] [address] Care Team Providers Care Med Spec Name Role Phone NABILA GARCIA Primary Care Provider Cesario Lloyd Jr REASON FOR VISIT 1 year office recall Encounters Encounter Location Date Provider Diagnosis [facility] [address] [place] [address] 06/24/2024 Cesario Domínguez Jr Plan Of Treatment No Information Progress Notes * KRAIG BROOKE MDOB: [birth year] (53 yo F)Acc No.[id number]:06/24/2024 Patient:?KRAIG BROOKE :1970???Age:53 Y???Sex:Female Address:[address] [place] [address], [address] * true * Date:? Generated for Vivian bowling/Destiney/eTransmitting on:?10/15/2024 08:26 AM EDT
[2024-10-15] MEDS: gadobutroL 10 ML VIAL IVPUSH (09:21)
== END 2024-10-15 08:17 | disposition home or self-care (01) ==
LOC: HO.MRI 08:16
PROVIDERS: PCP Nurse Practitioner Family; Visit Provider Nurse Practitioner Family
DX: D49.0 Neoplasm of unspecified behavior of digestive system (principal)
CPT/HCPCS: 74183; A9585

== ENCOUNTER 2024-10-23 09:08 | Outpatient (AMB) | payer OTHER, SELFPAY ==
--- NOTE | 2024-10-23 07:47 | MHC.OFFVIS ---
Intake Visit Reasons: Current Smoker Allergies Sulfa (Sulfonamide Antibiotics) Allergy (Mild, Verified 08/18/24 11:46) itchy HPI HPI Current Smoker: Details: Initial visit for this 54yo smoker with a 40+PYH. Patient started smoking at age 8 for 46 years at 1ppd. . Reports marijuana use - a few times a week. Denies second hand smoke exposure. Denies exposure to chemicals or substances like asbestos. . Reports family history of lung cancer. Maternal grandparents/Uncle. Denies personal history of cancers. Denies chest CT in last year. . Denies recent travel outside the [place]. Denies recent respiratory illness or recent hospitalization for respiratory issues. Reports history testing positive for COVID. Admits receiving COVID Vaccine. . Denies fever, chills, new/worsening cough, hemoptysis, hoarseness or dysphagia. Denies significant chest pain, significant dyspnea or unintentional weight loss. Patient Lung Cancer Screening Questionnaire reviewed with patient by provider. . Shared Decision Making Completed. Patient meets criteria. Discussed in detail with patient, the risk vs benefit of LDCT screening. Patient consents to proceed with scan. Discussed smoking cessation. [facility] Medical History (Updated 10/23/24 @ 09:17 by Vira Muller PA-C) Diabetes (~2019) HTN (hypertension) NUNO (obstructive sleep apnea) Nicotine dependence, cigarettes, uncomplicated Tubular adenoma of colon (~2018) Sjogrens syndrome Restless legs syndrome (RLS) Burning sensation Hx of abnormal cervical Pap smear Surgical History (Updated 10/23/24 @ 09:19 by Vira Muller PA-C) History of colonoscopy History of loop electrical excision procedure (LEEP) History of cervical biopsy History of endometrial ablation History of tubal ligation History of skin graft Family History Father No problems noted. Mother HTN (hypertension) IDDM (insulin dependent diabetes mellitus) Breast cancer Maternal Grandmother History of heart attack Breast cancer Maternal Grandfather History of heart attack Diabetes mellitus Paternal Grandfather No problems noted. Paternal Grandmother No problems noted. Maternal Aunt Cancer Maternal Uncle Lung cancer Smoker Brother No problems noted. Brother No problems noted. Brother No problems noted. Brother No problems noted. Son No problems noted. Son No problems noted. Daughter Healthy female Daughter Healthy female Social History (Updated 10/23/24 @ 09:17 by Vira Muller PA-C) Housing: House Alcohol intake: never Patient Tobacco Use Status: Current everyday Tobacco user Tobacco use type: Cigarette Cigarette Packs Per Day: 1 Years Smoked: (onset 8yo, 1ppd x 46yrs, 40PYH) e-Cigarette/Vaping Use: Never Used Second Hand Smoke Exposure: No Substance Use Type: Marijuana Current occupational status: employed Cognitive needs: No Hearing needs: No Vision needs: No Female Reproductive History Menstrual Age of Menarche: 12 Assessment & Plan Assessment & Plan (1) Nicotine dependence, cigarettes, uncomplicated: Comment: (onset 8yo, 1ppd x 46yrs, 40PYH) Code(s): F17.210 - Nicotine dependence, cigarettes, uncomplicated Category: Medical Plan: - SDM visit completed today in office. - Patient meets criteria for LDCT for lung cancer screening purposes and is asymptomatic. - Smoking cessation counseling offered. Patients can always call [phone]. - Will arrange for a LDCT scan of the chest for screening purposes at [facility]. - Risks, benefits, and alternatives were discussed in detail and the patient agrees to proceed. - Risks discussed include but are not limited to: radiation exposure, anxiety during testing and while awaiting results, false negatives, false positives and possibility of additional intervention such as further imaging or surgical procedures for benign disease. - Benefits are obviously detection of lung cancer at an early stage which can lead to improved outcomes. - Discussed the importance of screening program compliance with adherence to yearly LDCT scan as scheduled - or sooner interval scans for personalized screening regimen. - Discussed follow up plan. Our office will send a letter discussing results and if needed set up phone call and office visit based on CT findings. - Patient educated on results categorization and the management decisions for suspicious findings potentially found on the screening LDCT scan. Any patient with a Lung RADS score of 3 or 4 will be reviewed by a multidisciplinary team at [facility] to form a plan of action in regards to scan findings. - If further work up is warranted for a suspicious lung finding this will be followed by the Lung Cancer Screening program in conjunction with the Thoracic Surgery Department at [facility]. - A copy of the office note and LDCT will be sent to the patient's PCP - as well as documentation on any associated further plans of care. - Incidental findings on LDCT are the PCP's responsibility. These findings are indicated with an S finding on the LDCT Assessment. A note discussing the findings will be sent to the PCP who is then responsible for further management. - All questions answered.? Coding Level of Care Code Lung Cancer Screening G0296 Diagnoses Nicotine dependence, cigarettes, uncomplicated F17.210
--- OUTSIDE RECORDS SUMMARY | 2024-10-23 09:25 | XMS_ITS ---
Author Organization [facility] Address [address] [place] [address] Care Team Providers Care Dot Etcher Apprentice Name Role Phone NABILA GARCIA Primary Care Provider Cesario Lloyd Jr Unavailable [phone] Allergies Allergen (clinical drug ingredient) Drug/Non Drug [...] Problem Status W/U Status Risk Notes Problem 10160280 Pancreatic cyst (K86.2) Active confirmed Problem 466216886 Diverticulitis (K57.92) Active confirmed Vital Signs Temperature 97.3 degrees Fahrenheit 06/17/19 25 Blood pressure systolic 000 mm Hg 06/17/19 25 Blood pressure diastolic 00 mm Hg 025 Height 5 ft 7 in in 06/17/2024 Weight 215 lb 6 oz lbs 06/17/2024 BMI 33.73 kg/m2 06/17/2024 Encounters Encounter Location Date Provider Diagnosis [facility] [address] [place] [address] 06/17/2024 Cesario Domínguez Jr Pancreatic cyst K86.2 [...] ROSA BROOKE MDOB: [birth year] (53 yo F)Acc No.[id number]:06/17/2024 Progress Notes Patient:?ROSA BROOKE Provider:?Cesario Domínguez MD :1970???Age:53 Y???Sex:Female D ate:06/17/2024 Address:[address] [place], [place] [phone] Pcp:NABILA GARCIA Subjective: * Chief Complaints: * [...] MD Date:?0 06/17/2024 Generated for Vivian bowling/Destiney/Meesmitting on:?10/23/2024 09:25 AM EDT History and Physical Notes * [...]
== END 2024-10-23 09:39 | disposition home or self-care (01) ==
LOC: HO.HPS 09:09
PROVIDERS: PCP Nurse Practitioner Family; Referring Provider Nurse Practitioner Family; Visit Provider Physician Assistant Medical
DX: F17.210 Nicotine dependence, cigarettes, uncomplicated (principal)
CPT/HCPCS: G0296

== ENCOUNTER 2024-10-23 09:24 | Outpatient (REF) | payer OTHER, SELFPAY ==
--- NOTE | ~2024-10-23 | CT_ITS ---
CLINICAL HISTORY: F17.210 - Nicotine dependence, cigarettes, uncomplicated CT lung cancer screening (LDCT) Comparison: None Technique: Axial CT images of the chest using low-dose technique. Referring provider counseled the patient on shared decision-making for LDCT screening. Additional counseling was provided on smoking cessation. Effective radiation dose total: DLP 45.2 mGycm, CTDIvol 1.5 mGy. Findings: Lung: Mild emphysema. No pulmonary nodule. Coronary artery calcifications: None Limited upper abdomen: Unremarkable Other: None Impression: LungRADS 1: Negative exam. Continue annual screening with low dose Chest CT in 12 months. ##L1## Category 1: Normal; continue annual screening Category 2: Benign appearance or behavior, continue annual screening Category 3: Probably benign, [address] recommended Category 4A: Suspicious, [address] recommended; may consider PET/CT Category 4B: Suspicious, Additional diagnostics and/or tissue sampling recommended Category 4X: Suspicious, Additional diagnostics and/or tissue sampling recommended Category 0: Recalls (incomplete screen due to Incomplete coverage, Noise, Respiratory motion, Expiration, Obscured by acute abnormality) This document has been electronically signed by: Brandon Jeffries MD on 10/23/2024 12:56:24
== END 2024-10-23 09:25 | disposition home or self-care (01) ==
LOC: HO.CT 09:24
PROVIDERS: PCP Nurse Practitioner Family; Visit Provider Physician Assistant Medical
DX: Z12.2 Encounter for screening for malignant neoplasm of respiratory organs (principal); F17.210 Nicotine dependence, cigarettes, uncomplicated
CPT/HCPCS: 71271

== ENCOUNTER → 2024-10-23 09:26 | Outpatient (BNV) | payer OTHER, SELFPAY | PROVIDERS: PCP Nurse Practitioner Family; Visit Provider Nuclear Medicine | DX: Z12.2 Encounter for screening for malignant neoplasm of respiratory organs (principal); F17.210 Nicotine dependence, cigarettes, uncomplicated | CPT/HCPCS: 71271 ==

== ENCOUNTER → 2024-10-27 07:17 | Outpatient (BNVA) | payer OTHER, SELFPAY | PROVIDERS: PCP Nurse Practitioner Family; Visit Provider Nurse Practitioner Family | DX: Z13.89 Encounter for screening for other disorder (principal) ==

== ENCOUNTER 2024-11-03 06:56 | Outpatient (AMB) | payer OTHER, SELFPAY ==
--- OUTSIDE RECORDS SUMMARY | 2024-11-03 06:59 | XMS_ITS ---
Author Organization [facility] Address [address] [place] [address] Care Team Providers Care Telegraph Repeater Installer Name Role Phone NABILA GARCIA Primary Care Provider Cesario Lloyd Jr Unavailable [phone] Allergies Allergen (clinical drug ingredient) Drug/Non [...] Problem Status W/U Status Risk Notes Problem [id number] Pancreatic cyst (K86.2) Active confirmed Problem [id number] Diverticulitis (K57.92) Active confirmed Vital Signs Temperature 97.3 degrees Fahrenheit 06/17/19 25 Blood pressure systolic 000 mm Hg 06/17/19 25 Blood pressure diastolic 00 mm Hg 025 Height 5 ft 7 in in 06/17/2024 Weight 215 lb 6 oz lbs 06/17/2024 BMI 33.73 kg/m2 06/17/2024 Encounters Encounter Location Date Provider Diagnosis [facility] [address] [place] [address] 06/17/2024 Cesario Domínguez Jr Pancreatic cyst K86.2 [...] ROSA BROOKE MDOB: [birth year] (53 yo F)Acc No.[id number]:06/17/2024 Progress Notes Patient:?ROSA BROOKE Provider:?Cesario Domínguez MD :1970???Age:53 Y???Sex:Female D ate:06/17/2024 Address:[address] [place], [place] [id number] Pcp:NABILA GARCIA Subjective: * Chief Complaints: * [...] MD Date:?0 06/17/2024 Generated for Vivian bowling/Destiney/Meesmitting on:?11/03/2024 06:58 AM EDT History and Physical Notes * [...]
--- NOTE | 2024-11-03 07:46 | MHC.PC.OV ---
Intake Visit Reasons: r/s from 10/27 Allergies Sulfa (Sulfonamide Antibiotics) Allergy (Mild, Verified 08/18/24 11:46) itchy Tobacco use date assessed: 07/23/24 Dental Screening Dental Screen Date: 07/23/24 HPI r/s from 10/27 HPI Details History of Present Illness The patient is a 54-year-old female presenting with a stable Intraductal Papillary Mucinous Neoplasm (IPMN) for ongoing telehealth follow-up monitoring. The IPMN is currently being managed with annual magnetic resonance imaging (MRI) to observe for any changes within the pancreas. The patient has a long-standing history of tobacco use disorder, beginning at the age of 8, which has contributed to chronic obstructive pulmonary disease (COPD). Despite her efforts to reduce smoking, she acknowledges decreased respiratory function over time. Her medical history includes participation in a low-dose computed tomography (CT) scanning program for lung cancer surveillance, with annually recommended CT scans. Her preventive care measures are up to date, with recent mammogram and colonoscopy screenings. The patient currently denies experiencing any new abdominal pain, changes in bowel habits, or additional respiratory symptoms, aside from the decreased function noted over time. Review of Systems - Respiratory: Reports decreased respiratory function; Denies significant dyspnea or other respiratory symptoms. - Gastrointestinal: Denies abdominal pain, changes in bowel habits, constipation, or diarrhea. - Cardiovascular: Denies chest pain and significant shortness of breath. Plan Management of the stable Intraductal Papillary Mucinous Neoplasm (IPMN) includes ongoing annual MRI monitoring. Pt has seen her GI provider for this in the past, continued surveillance. Will reach out to him to make him aware of the plan (cont yearly imaging)The patient's tobacco use disorder requires continued smoking cessation efforts to mitigate progression of chronic obstructive pulmonary disease (COPD). She continues participating in annual low-dose CT scans for cancer surveillance. All preventive screenings remain current, and no new interventions are required at this time. Discussion Notes During the telehealth session, I discussed with the patient the stability of her Intraductal Papillary Mucinous Neoplasm (IPMN) as indicated by her latest MRI, and the plan to continue with annual imaging. We reviewed her long-term smoking history and its implications on her respiratory health, emphasizing the critical importance of smoking cessation to prevent progression of chronic obstructive pulmonary disease (COPD) and potential lung carcinogenesis. I outlined the benefits of the current annual low-dose CT scans as part of her cancer screening regimen. We also verified that her mammogram and colonoscopy screenings are up to date. The necessity of adherence to these surveillance strategies was emphasized. We discussed her respiratory symptoms and the lack of significant new onset issues, providing reassurance and guidance for ongoing health maintenance. Patient Instructions - Continue to undergo annual MRI for IPMN monitoring. - Follow through with annual low-dose CT scans as part of lung cancer screening. - Maintain efforts towards smoking cessation to improve lung health. - Ensure mammograms and colonoscopies are kept current. - Contact healthcare provider with any new respiratory symptoms, abdominal pain, or changes in bowel habits. - Keep up with general health maintenance and preventative care measures. [facility] Medical History Diabetes (~2019) HTN (hypertension) NUNO (obstructive sleep apnea) Nicotine dependence, cigarettes, uncomplicated Tubular adenoma of colon (~2018) Sjogrens syndrome Restless legs syndrome (RLS) Burning sensation Hx of abnormal cervical Pap smear Surgical History History of colonoscopy History of loop electrical excision procedure (LEEP) History of cervical biopsy History of endometrial ablation History of tubal ligation History of skin graft Family History Father No problems noted. Mother HTN (hypertension) IDDM (insulin dependent diabetes mellitus) Breast cancer Maternal Grandmother History of heart attack Breast cancer Maternal Grandfather History of heart attack Diabetes mellitus Paternal Grandfather No problems noted. Paternal Grandmother No problems noted. Maternal Aunt Cancer Maternal Uncle Lung cancer Smoker Brother No problems noted. Brother No problems noted. Brother No problems noted. Brother No problems noted. Son No problems noted. Son No problems noted. Daughter Healthy female Daughter Healthy female Social History Housing: House Alcohol intake: never Patient Tobacco Use Status: Current everyday Tobacco user Tobacco use type: Cigarette Cigarette Packs Per Day: 1 Years Smoked: (onset 8yo, 1ppd x 46yrs, 40PYH) e-Cigarette/Vaping Use: Never Used Second Hand Smoke Exposure: No Substance Use Type: Marijuana Current occupational status: employed Cognitive needs: No Hearing needs: No Vision needs: No Female Reproductive History Menstrual Age of Menarche: 12 Questionnaire Thrive Questionnaire Date Thrive assessed: 07/23/24 I am a: Patient What is your living situation today?: I have a steady place to live Within the past 12 months, did the food you bought not last and you didn't have the money to get more?: Never true Within the past 12 months, did you worry whether your food would run out before you got money to buy more?: Never true Do you have trouble paying for medicines?: No Do you have trouble getting transportation to medical appointments?: No Do you have trouble paying your heating and electricity bill?: Yes Do you have trouble taking care of your child, family member or friend?: No Do you have trouble with day-to-day activities such as bathing, preparing meals, shopping, managing finances, etc.?: No Are you currently unemployed and looking for a job?: No Are you interested in more education?: No Please select the resources that you would like help with: None Currently or been in a relationship where the following occur: No concerns reported THRIVE Score: 1 MINESH-7 AMB Questionnaire MINESH-7 Date MINESH - 7 assessed: 07/23/24 Source: Developed by Drs. Sree Barnes, Kasia Estevez, Juan Manuel Bergman and colleagues, with an educational paul from [employer] Physical exam (Primary Care) Tobacco/Smoking Status: Tobacco use Status Tobacco use date assessed 07/23/24 11/03/24 07:47 Patient Tobacco Use Status Current everyday Tobacco 11/03/24 07:47 Tobacco use type Cigarette 11/03/24 07:47 e-Cigarette/Vaping Use Never Used 11/03/24 07:47 Thrive Assessment: Date of Thrive Assessment Date Thrive assessed 07/23/24 11/03/24 07:47 Currently or been in a relationship where the following occur: No concerns reported Coding Level of Care Code Tele Est Pt Level 3 (68372) Diagnoses IPMN (intraductal papillary mucinous neoplasm) D49.0 Smoker F17.200 Assessment & Plan Assessment & Plan (1) IPMN (intraductal papillary mucinous neoplasm): Code(s): D49.0 - Neoplasm of unspecified behavior of digestive system Category: Medical (2) Smoker: Code(s): F17.200 - Nicotine dependence, unspecified, uncomplicated Category: Social Hx Plan .
== END 2024-11-03 07:56 | disposition home or self-care (01) ==
LOC: HO.HMCC 06:57
PROVIDERS: PCP Nurse Practitioner Family; Visit Provider Nurse Practitioner Family
DX: D49.0 Neoplasm of unspecified behavior of digestive system (principal); F17.200 Nicotine dependence, unspecified, uncomplicated

== ENCOUNTER → 2024-11-03 06:56 | Outpatient (BNVA) | payer OTHER, SELFPAY | PROVIDERS: PCP Nurse Practitioner Family; Visit Provider Nurse Practitioner Family | DX: Z13.89 Encounter for screening for other disorder (principal) ==

== ENCOUNTER 2025-01-18 09:49 | Outpatient (AMB) | payer OTHER, SELFPAY ==
--- NOTE | 2025-01-18 09:51 | A.OFFPC_ITS ---
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 Required: No Accompanied by: Self / Same As Patient Allergies Sulfa (Sulfonamide Antibiotics) Allergy (Mild, Verified 01/18/25 09:51) itchy Medication List - Last Reconciled 01/18/25 by CHYNA IslasP- albuterol sulfate 90 mcg/actuation (Ventolin HFA) 1 inh inhalation QID PRN alcohol swabs (Alcohol Prep Pads) 1 pad topical DAILY atorvastatin 10 mg PO BEDTIME blood sugar diagnostic (FreeStyle Lite Strips) 1 strip miscellaneous twice a day; blood-glucose meter (FreeStyle Lite Meter kit) As directed ibuprofen 800 mg PO BID PRN 30 days lancets (FreeStyle Lancets) 28 gauge miscellaneous twice a day testing; twice a day testing levofloxacin 500 mg PO DAILY losartan 25 mg PO DAILY magnesium oxide 400 mg PO DAILY metronidazole 500 mg PO BID rjxybibozmrg-xuvmxxyz-ihtwik 1 tab PO DAILY ondansetron 4 mg PO Q8H PRN oxycodone 5 mg PO Q8H PRN polyethylene glycol 3350 (Miralax) 17 grams PO DAILY PRN semaglutide 1 mg (0.75 mL) subcut QWEEK sumatriptan succinate 50 mg PO ONCE PRN 30 days turmeric root extract 1,000 mg PO DAILY Tobacco use date assessed: 01/18/25 Dental Screening Dental Screen Date: 01/18/25 HPI 6m follow up *Confirmed [facility] HPI Details Chief Complaint The patient presents for a follow-up regarding her diabetes management. History of Present Illness The patient is a 54-year-old female presenting with a follow-up for diabetes management. She reports feeling well overall and is actively monitoring her diet. Her hemoglobin A1c was recorded at 6.6% today, indicating good glycemic control. The patient denies any neuropathy, and monofilament testing confirmed intact sensation in her feet. She is currently on semaglutide, with plans to increase the dosage from 1 mg to 2 mg. The patient has a history of tobacco use and undergoes annual low-dose CT scans for lung cancer screening. Additionally, she has annual MRIs to monitor her pancreas. Social History - Tobacco Use: The patient smokes and un dergoes annual low-dose CT scans for lung cancer screening. Health Maintenance - Annual low-dose CT scans for lung canc er screening due to smoking history - Annual MRI for pancreatic monitoring Review of Systems - Neurological: Denies neuropathy -denies any cp, sob, abd pain, Physical Exam General: Cooperative, healthy appearing, comfortable, no acute distress and well developed Orientation: Patient oriented x3 Limitations: No limitations Head: Normal to inspection Ears: Hearing grossly normal bilaterally Nose: Normal external nose present Face and sinus: Normal facial exam Eyes: Appearance normal, both eyes and all related structures Neck: Normal visual inspection and Yes full ROM Respiratory: Normal respiratory effort and able to speak in complete sentences. Clear to auscultation bilaterally Cardiovascular: Regular rate and rhythm. Normal S1 and S2 GI: Normal to inspection. Soft to palpation and nontender Skin: No rashes or lesions noted Neuro: Patient oriented x3 Extremities: Normal to inspection, positive sensation with use of monofilament, feet were intact Results - Labs: Hemoglobin A1c at 6.6% Plan The patient's diabetes management will continue with an increase in semaglutide dosage from 1 mg to 2 mg to maintain glycemic control. She is encouraged to continue monitoring her diet and to have her fasting labs done in the near future. For her tobacco use, she will continue with annual low-dose CT scans to screen for lung cancer. Additionally, annual MRIs will be conducted to monitor her pancreas. Discussion Notes I discussed with the patient the importance of maintaining her current diabetes management plan, including the increase in semaglutide dosage to 2 mg. We also reviewed the necessity of continuing her annual low-dose CT scans for lung cancer screening due to her smoking history and the annual MRIs for pancreatic monitoring. Patient Instructions - Continue with the increased semaglutid e dosage of 2 mg. - Monitor your diet closely and schedule fasting labs soon. - Continue annual low-dose CT scans for lung cancer screening. - Undergo annual MRIs for pancreatic mon itoring. [facility] Medical History Diabetes (~2019) HTN (hypertension) NUNO (obstructive sleep apnea) Nicotine dependence, cigarettes, uncomplicated Tubular adenoma of colon (~2018) Sjogrens syndrome Restless legs syndrome (RLS) Burning sensation Hx of abnormal cervical Pap smear Surgical History History of colonoscopy History of loop electrical excision procedure (LEEP) History of cervical biopsy History of endometrial ablation History of tubal ligation History of skin graft Family History Father No problems noted. Mother HTN (hypertension) IDDM (insulin dependent diabetes mellitus) Breast cancer Maternal Grandmother History of heart attack Breast cancer Maternal Grandfather History of heart attack Diabetes mellitus Paternal Grandfather No problems noted. Paternal Grandmother No problems noted. Maternal Aunt Cancer Maternal Uncle Lung cancer Smoker Brother No problems noted. Brother No problems noted. Brother No problems noted. Brother No problems noted. Son No problems noted. Son No problems noted. Daughter Healthy female Daughter Healthy female Social History Housing: House Alcohol intake: never Patient Tobacco Use Status: Current everyday Tobacco user Tobacco use type: Cigarette Cigarette Packs Per Day: 1 Years Smoked: (onset 8yo, 1ppd x 46yrs, 40PYH) Packs Per Year: 0 e-Cigarette/Vaping Use: Never Used Second Hand Smoke Exposure: No Substance Use Type: Marijuana Current occupational status: employed Cognitive needs: No Hearing needs: No Vision needs: No Female Reproductive History Menstrual Age of Menarche: 12 Questionnaire PHQ-9 Over the last 2 weeks, how often have you been bothered by any of the following problems? 1. Little interest or pleasure in doing things: not at all 2. Feeling down, depressed, or hopeless: not at all 3. Trouble falling or staying asleep, or sleeping too much: nearly every day 4. Feeling tired or having little energy: nearly every day 5. Poor appetite or overeating: not at all 6. Feeling bad about yourself - or that you are a failure or have let yourself or your family down: not at all 7. Trouble concentrating on things, such as reading the newspaper or watching television: not at all 8. Moving or speaking so slowly that other people could have noticed. Or the opposite - being so fidgety or restless that you have been moving around a lot more than usual: not at all 9. Thoughts that you would be better off or of hurting yourself in some way: not at all Total score: 6 Depression Screening Interpretation: Negative Depression Screening Done: Yes 07123 - PHQ-9 Billing: Yes Source: Developed by Drs. Sree Barnes, Juan Manuel Templeton and colleagues, with an educational paul from [employer]. Thrive Questionnaire Date Thrive assessed: 07/23/24 I am a: Patient What is your living situation today?: I have a steady place to live Within the past 12 months, did the food you bought not last and you didn't have the money to get more?: Never true Within the past 12 months, did you worry whether your food would run out before you got money to buy more?: Never true Do you have trouble paying for medicines?: No Do you have trouble getting transportation to medical appointments?: No Do you have trouble paying your heating and electricity bill?: Yes Do you have trouble taking care of your child, family member or friend?: No Do you have trouble with day-to-day activities such as bathing, preparing meals, shopping, managing finances, etc.?: No Are you currently unemployed and looking for a job?: No Are you interested in more education?: No Please select the resources that you would like help with: None Currently or been in a relationship where the following occur: No concerns reported THRIVE Score: 1 MINESH-7 AMB Questionnaire MINESH-7 Date MINESH - 7 assessed: 01/18/25 Feeling nervous, anxious, or on edge: 0 = Not at all Not being able to stop or control worryin = Not at all Worrying too much about different things: 0 = Not at all Trouble relaxin = Not at all Being so restless that it is hard to sit still: 0 = Not at all Becoming easily annoyed or irritable: 0 = Not at all Feeling afraid as if something awful might happen: 0 = Not at all Total MINESH-7 score (0-4 normal; 5-9 mild; 10-14 moderate; 15-21 severe): 0 Source: Developed by Kasia Worthington Kurt Kroenke and colleagues, with an educational paul from [employer]. MINESH-7 Assessment Billing MINESH-7 Assessment Tool: MINESH-7 Assessment 72495 Physical exam (Primary Care) Vital Signs: Last Vital Signs Pulse 92 01/18/25 09:53 Resp 16 01/18/25 09:53 BP 116/72 01/18/25 09:53 Pulse Ox 96 01/18/25 09:53 Oxygen Delivery Method Room Air 01/18/25 09:53 BMI result Body Mass Index 31.9 Tobacco/Smoking Status: Tobacco use Status Tobacco use date assessed 01/18/25 01/18/25 09:59 Patient Tobacco Use Status Current everyday Tobacco 01/18/25 09:59 Tobacco use type Cigarette 01/18/25 09:59 e-Cigarette/Vaping Use Never Used 01/18/25 09:59 PHQ-9: PHQ-9 Score PHQ-9: Total score 6 01/18/25 10:02 Depression Screening Interpretation: Negative Thrive Assessment: Date of Thrive Assessment Date Thrive assessed 07/23/24 01/18/25 09:59 Currently or been in a relationship where the following occur: No concerns reported Coding Level of Care Code Est Pt Level 3 (20299) Diagnoses Type 2 diabetes mellitus without complication, without long-term current use of insulin E11.9 Diabetes mellitus complication status: without complication Diabetes mellitus nursing home insulin use: without nursing home use Diabetes mellitus type: type 2 Blood typing encounter Z. Additional Codes MINESH-7 Assessment Billing - MINESH-7 Assessment Tool: MINESH-7 Assessment 40674 ([id number]) PHQ-9 - 97905 - PHQ-9 Billing: Yes ([id number]) Assessment & Plan Assessment & Plan (1) Diabetes: Onset Date: ~2019 Comment: (DM2 - dx 2019) Code(s): E11.9 - Type 2 diabetes mellitus without complications Category: Medical Qualifiers: Diabetes mellitus complication status: without complication Diabetes mellitus nursing home insulin use: without nursing home use Diabetes mellitus type: type 2 Qualified Code(s): E11.9 - Type 2 diabetes mellitus without complications (2) Blood typing encounter: Code(s): Z.83 - Encounter for blood typing Category: Medical Plan . Orders: Orders Complete Blood Count Auto Diff Today E11.9 - Type 2 diabetes mellitus without complications ABO RH Type Today Z01.83 - Encounter for blood typing Comprehensive [place]. Panel Fast Today E11.9 - Type 2 diabetes mellitus without complications TSH reflex Free T4 Today E11.9 - Type 2 diabetes mellitus without complications UA CC w/rflx Micro + Cult Today E11.9 - Type 2 diabetes mellitus without complications Lipid Panel Today E11.9 - Type 2 diabetes mellitus without complications Microalbumin, Random (w Creat) Today E11.9 - Type 2 diabetes mellitus without complications Medications: Changed From semaglutide 1 mg (0.75 mL) subcut QWEEK 9 mL 1RF To semaglutide 2 mg (0.75 mL) subcut QWEEK 3 mL 1RF Discontinued oxycodone Partial Fill upon patient request. Discontinued Reason: No Longer Medically Relevant 5 mg PO Q8H PRN 9 tabs 0RF pain levofloxacin Discontinued Reason: Doctor's Order 500 mg PO DAILY 9 tabs 0RF
[2025-01-18 09:53] VITALS: BP 116/72; PULSE 92; RESP 16; O2SAT 96; BMI 31.9
--- OUTSIDE RECORDS SUMMARY | 2025-01-18 10:34 | XMS_ITS | Patient Health Record ---
Author Organization [facility] Address [address] [place] [address] Care Team Providers Care Diving Judge Name Role Phone NABILA GARCIA Primary Care [...] Problem Status W/U Status Risk Notes Problem [id number] Diverticulitis (K57.92) Active confirmed Problem 19571380 Pancreatic cyst (K86.2) Active confirmed Vital Signs Temperature 97.3 degrees Fahrenheit 06/17/2024 Blood pressure diastolic 00 mm Hg 06/17/2024 Height 5 ft 7 in in 06/17/2024 Blood pressure systolic 000 mm Hg 06/17/2024 Weight 215 lb 6 oz lbs 06/17/2024 BMI 33.73 kg/m2 06/17/2024 Encounters Encounter Location Date Provider Diagnosis [facility] [address] [place] [phone] 06/17/2024 Cesario Domínguez Jr Pancreatic cyst K86.2 and Diverticulitis K57.92 [facility] [address] [place] [phone] 06/24/2024 Cesario Domínguez Jr Assessments Encounter Date [...] on colorectal cancer screening. Plan Of Treatment Next Appt Details Provider Name:Cesario reid Jr, 11/03/2025 09:00:00 AM, [address], [address], [place], [address], Insurance Providers Payer Name Payer Address Payer Phone Subscriber Number Group Number Insured Name Patient Relationship to Insured Coverage Start Date Coverage End Date [facility] [address] [place] [phone] [id number] KRAIG BROOKE Self - patient is the insured Medical (General) History Medical History History ICD Code Hypertension Diabetes mellitus type 2 with neuropathy Hyperlipidemia Colonoscopy 12/24, tubular adenoma, seven -year followup Lupus/Sjogren's syndrome Diverticulitis Pancreatic head lesion Surgical History Surgery Date(Month/Year) Tubal ligation Skin graft to foot Urethral sling
== END 2025-01-18 10:22 | disposition home or self-care (01) ==
LOC: HO.HMCC 09:50
PROVIDERS: PCP Nurse Practitioner Family; Visit Provider Nurse Practitioner Family
DX: E11.9 Type 2 diabetes mellitus without complications (principal); Z01.83 Encounter for blood typing; Z13.9 Encounter for screening, unspecified

== ENCOUNTER → 2025-01-18 09:49 | Outpatient (BNVA) | payer OTHER, SELFPAY | PROVIDERS: PCP Nurse Practitioner Family; Visit Provider Nurse Practitioner Family | DX: E11.65 Type 2 diabetes mellitus with hyperglycemia (principal); I10 Essential (primary) hypertension; E78.00 Pure hypercholesterolemia, unspecified; N28.9 Disorder of kidney and ureter, unspecified; G35 Multiple sclerosis; G47.33 Obstructive sleep apnea (adult) (pediatric); F34.1 Dysthymic disorder; R15.9 Full incontinence of feces; R29.898 Other symptoms and signs involving the musculoskeletal system | CPT/HCPCS: 83036; 96127 ==

== ENCOUNTER 2025-03-26 07:21 | Outpatient (REF) | payer OTHER, SELFPAY ==
[2025-03-26 07:47] LABS: MANUAL DIFF FLAG NO
[2025-03-26 08:35] LABS: Hematocrit 40.8 % (37.0-47.0); Hemoglobin 13.6 g/dl (12.0-16.0); Imm Gran Abs Auto 0.02 X10*3/uL (0.00-0.03); Imm Gran Pct Auto 0.2 % (0.0-0.4); Lymphocytes Absolute Auto 1.9 X10*3/uL (1.2-4.9); Mean Corpuscular HGB Conc 33.3 g/dl (31.0-35.0); Mean Corpuscular Hemoglobin 29.6 pg (27.0-33.0); Mean Corpuscular Volume 88.7 fL (80.0-98.0); NRBC Abs Auto 0.000 X10*3/uL (0.0-0.012); NRBC Pct Auto 0.0 /100WBC (0.0-0.2); Platelet Count 257 X10*3/uL (160-400); Red Blood Count 4.60 X10*6/uL (4.20-5.50); White Blood Count 8.0 X10*3/uL (4.8-10.8)
[2025-03-26 09:14] LABS: Alanine Aminotransferase 25 U/L (0-31); Albumin Level 4.4 g/dL (3.5-5.0); Alkaline Phosphatase 77 U/L (39-117); Anion Gap 13 (12-20); Aspartate Amino Transferase 16 U/L (5-31); Blood Urea Nitrogen 13 mg/dL (9-16); Calcium 9.8 mg/dL (8.4-10.2); Carbon Dioxide 23 mmol/L (22-29); Chloride 107 mmol/L (96-108); Cholesterol 119 mg/dL (<200); Estimated Glomerular Filt Rate > 60; HDL Cholesterol 46 mg/dL (>40); Potassium 4.0 mmol/L (3.3-5.1); Sodium 139 mmol/L (135-145); Total Protein 7.4 g/dL (6.5-8.0); Triglycerides 105 mg/dL (<150)
[2025-03-26 09:34] LABS: Appearance Urine Cloudy; Glucose Urine UA Negative (Negative); PH 5.5 (5.0-9.0); Specific Gravity - Urine 1.020 (1.005-1.025); UMIC TRIGGER UACC YES
[2025-03-26 09:40] LABS: UACC Culture Trigger YES
[2025-03-26 09:45] LABS: Microalbum/Creatinine Ratio Ur 16.3 ug/mg cr (<30)
== END 2025-03-26 07:22 | disposition home or self-care (01) ==
LOC: HO.LAB 07:21
PROVIDERS: PCP Nurse Practitioner Family; Visit Provider Nurse Practitioner Family
DX: Z01.83 Encounter for blood typing (principal); E11.9 Type 2 diabetes mellitus without complications
CPT/HCPCS: 36415; 80053; 80061; 81001; 81003; 82043; 82570; 84443; 85025; 86900; 86901; 87086

== ENCOUNTER 2025-03-31 07:48 | Outpatient (AMB) | payer OTHER, SELFPAY ==
--- OUTSIDE RECORDS SUMMARY | 2025-03-31 07:53 | XMS_ITS | Patient Health Record ---
Author Organization [facility] Address [address] [place] [address] Care Team Providers Care Embossing Toolsetter Name Role Phone NABILA GARCIA Primary Care [...] with a indra l Orally Once a day; Duration: 30 day(s) Active Semaglutide(0.25 or 0.5MG/DOS) 2 MG/1.5ML as directed Subcutaneous Active Ibuprofen 800 MG 1 tablet with food o r milk as needed Orally every 8 hrs Active Losartan Potassium 25 MG 1 tablet Orally Once a day; Duration: 30 day(s) Active Turmeric - as directed Active Atorvastatin Calcium 40 MG 1 tablet Oral ly Once a day; Duration: 30 day(s) Active Albuterol 90 MCG/ACT as directed Inhalation Active Multi Vitamin - 1 tablet Orally Once a day; Duration: 30 day(s) Active SUMAtriptan 5 MG/ACT 1 spray at onset of headache in one nostril may repeat dose after 2 hours as needed Nasally Once a day; Duration: 1 day(s) Active metroNIDAZOLE 0.75 % 1 [...] Problem Status W/U Status Risk Notes Problem Diverticulitis (58640261) Diverticulitis (K57.92) Active confirmed Problem Pancreatic cyst (60110762) Pancreatic cyst (K86.2) Active confirmed Vital Signs Temperature 97.3 degrees Fahrenheit 06/17/2024 Blood pressure diastolic 00 mm Hg 06/17/2024 Height 5 ft 7 in in 06/17/2024 Blood pressure systolic 000 mm Hg 06/17/2024 Weight 215 lb 6 oz lbs 06/17/2024 BMI 33.73 kg/m2 06/17/2024 Encounters Encounter Location Date Provider Diagnosis [facility] [address] [place] [phone] 06/17/2024 Cesario Domínguez Jr Pancreatic cyst K86.2 and Diverticulitis K57.92 [facility] [address] [place] [phone] 06/24/2024 Cesario Domínguez Jr Assessments Encounter Date [...] Name:Cesario reid Jr, 11/03/2025 09:00:00 AM, [address], [address], [place], [address], Insurance Providers Payer Name Payer Address Payer Phone Subscriber Number Group Number Insured Name Patient Relationship to Insured Coverage Start Date Coverage End Date [facility] [address] [place] [phone] [id number] KRAIG BROOKE Self - patient is the insured Medical (General) History Medical History History ICD Code Hypertension Diabetes mellitus type 2 with neuropathy Hyperlipidemia Colonoscopy 12/24, tubular adenoma, seven -year followup Lupus/Sjogren's syndrome Diverticulitis Pancreatic head lesion Surgical History Surgery Date(Month/Year) Tubal ligation Skin graft to foot Urethral sling
[2025-03-31 08:05] VITALS: BP 110/64; PULSE 97; TEMP 36.2; O2SAT 96; BMI 31.9
--- NOTE | 2025-03-31 08:05 | MHC.PC.OV ---
Vital Signs 03/31/25 08:05 Height 5 ft 8 in Weight 210 lb BMI 31.9 BP 110/64 Blood Pressure Location Lt brachial Position Sitting Pulse 97 Pulse Source Pulse Oximeter Temp 97.2 F Temp Source Oral Pulse Oximetry (%) 96 Oxygen Delivery Method Room Air Intake Visit Reasons: PE Drug Worker Required: No Accompanied by: Self / Same As Patient Allergies Sulfa (Sulfonamide Antibiotics) Allergy (Mild, Verified 03/31/25 08:34) itchy Medication List - Last Reconciled 03/31/25 by INGRID Islas- albuterol sulfate 90 mcg/actuation (Ventolin HFA) 1 inh inhalation QID PRN alcohol swabs (Alcohol Prep Pads) 1 pad topical DAILY atorvastatin 10 mg PO BEDTIME blood sugar diagnostic (FreeStyle Lite Strips) 1 strip miscellaneous twice a day; blood-glucose meter (FreeStyle Lite Meter kit) As directed ibuprofen 800 mg PO BID PRN 30 days lancets (FreeStyle Lancets) 28 gauge miscellaneous twice a day testing; twice a day testing losartan 25 mg PO DAILY magnesium oxide 400 mg PO DAILY metronidazole 500 mg PO BID [id number] 1 tab PO DAILY ondansetron 4 mg PO Q8H PRN polyethylene glycol 3350 (Miralax) 17 grams PO DAILY PRN semaglutide 2 mg (0.75 mL) subcut QWEEK sumatriptan succinate 50 mg PO ONCE PRN 30 days turmeric root extract 1,000 mg PO DAILY Tobacco use date assessed: 03/31/25 Dental Screening Dental Screen Date: 03/31/25 Did you have a dental visit in the last 12 months?: Yes Did you have a dental problem in the last 6 months where you did not have access to dental care?: No Was dental information given to patient?: Patient has dentist HPI PE HPI Details History of Present Illness The patient is a 54-year-old female presenting for a physical examination. She has a history of diabetes mellitus and obesity. Her current medications include an ARB and a statin. She reports being up to date on her colon cancer screening, mammogram, and diabetic eye exam. Her microalbumin screening is also up to date. The patient denies any symptoms of neuropathy in her feet and is reported to be doing well overall. Health Maintenance The patient presented for a physical exam. 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 A follow-up visit is scheduled in six months. Social History Review of Systems - Neurological: Denies neuropathy in her feet. denies any cp, sob, n/v/d, fevers, chills, SI or HI Physical Exam General: Cooperative, healthy appearing, comfortable, no acute distress and well developed Orientation: Patient oriented x3 Limitations: No limitations Head: Normal to inspection Ears: Hearing grossly normal bilaterally Nose: Normal external nose present Face and sinus: Normal facial exam Eyes: Appearance normal, both eyes and all related structures Neck: Normal visual inspection and Yes full ROM Respiratory: Normal respiratory effort and able to speak in complete sentences. Clear to auscultation bilaterally Cardiovascular: Regular rate and rhythm. Normal S1 and S2 GI: Normal to inspection. Soft to palpation and nontender : testicles without masses/lesions and no hernias appreciated Skin: No rashes or lesions noted Neuro: Patient oriented x3 Extremities: Positive sensation use of monofilament to feet bilaterally. Feet were intact bilaterally. Normal to inspection Results - Labs: Hemoglobin A1c is 6.2%. Plan 1. Diabetes Mellitus The patient has well-controlled diabetes, with a recent hemoglobin A1c of 6.2%. All diabetic-related health maintenance, including eye exam and microalbumin screening, is up to date. The plan is to continue current management and follow up in six months. 2. Obesity The patient is obese. No other issues related to this were noted, and the plan is to follow up in six months. Discussion Notes I informed the patient that she is doing quite well overall. I noted that her diabetes is well-controlled with an A1c of 6.2% and that her preventative screenings are up to date. I advised her to return for a follow-up visit in six months. Patient Instructions - Return to the clinic for a follow-up appointment in six months. [facility] Medical History Diabetes (~2019) HTN (hypertension) NUNO (obstructive sleep apnea) Nicotine dependence, cigarettes, uncomplicated Tubular adenoma of colon (~2019) Sjogrens syndrome Restless legs syndrome (RLS) Burning sensation Hx of abnormal cervical Pap smear Surgical History History of colonoscopy History of loop electrical excision procedure (LEEP) History of cervical biopsy History of endometrial ablation History of tubal ligation History of skin graft Family History Father No problems noted. Mother HTN (hypertension) IDDM (insulin dependent diabetes mellitus) Breast cancer Maternal Grandmother History of heart attack Breast cancer Maternal Grandfather History of heart attack Diabetes mellitus Paternal Grandfather No problems noted. Paternal Grandmother No problems noted. Maternal Aunt Cancer Maternal Uncle Lung cancer Smoker Brother No problems noted. Brother No problems noted. Brother No problems noted. Brother No problems noted. Son No problems noted. Son No problems noted. Daughter Healthy female Daughter Healthy female Social History (Reviewed 03/31/25 @ 08:16 by INGRID [facility] Housing: House Alcohol intake: never Patient Tobacco Use Status: Current everyday Tobacco user Tobacco use type: Cigarette Cigarette Packs Per Day: 1 Years Smoked: (onset 8yo, 1ppd x 46yrs, 40PYH) e-Cigarette/Vaping Use: Never Used Second Hand Smoke Exposure: No Substance Use Type: Marijuana Current occupational status: employed Cognitive needs: No Hearing needs: No Vision needs: No Female Reproductive History Menstrual Age of Menarche: 12 Questionnaire PHQ-9 Over the last 2 weeks, how often have you been bothered by any of the following problems? 1. Little interest or pleasure in doing things: not at all 2. Feeling down, depressed, or hopeless: not at all 3. Trouble falling or staying asleep, or sleeping too much: not at all 4. Feeling tired or having little energy: not at all 5. Poor appetite or overeating: not at all 6. Feeling bad about yourself - or that you are a failure or have let yourself or your family down: not at all 7. Trouble concentrating on things, such as reading the newspaper or watching television: not at all 8. Moving or speaking so slowly that other people could have noticed. Or the opposite - being so fidgety or restless that you have been moving around a lot more than usual: not at all 9. Thoughts that you would be better off or of hurting yourself in some way: not at all Total score: 0 Depression Screening Interpretation: Negative Depression Screening Done: Yes Source: Developed by Drs. Sree Barnes, Juan Manuel Templeton and colleagues, with an educational paul from [employer]. Thrive Questionnaire Date Thrive assessed: 07/23/24 I am a: Patient What is your living situation today?: I have a steady place to live Within the past 12 months, did the food you bought not last and you didn't have the money to get more?: Never true Within the past 12 months, did you worry whether your food would run out before you got money to buy more?: Never true Do you have trouble paying for medicines?: No Do you have trouble getting transportation to medical appointments?: No Do you have trouble paying your heating and electricity bill?: Yes Do you have trouble taking care of your child, family member or friend?: No Do you have trouble with day-to-day activities such as bathing, preparing meals, shopping, managing finances, etc.?: No Are you currently unemployed and looking for a job?: No Are you interested in more education?: No Please select the resources that you would like help with: None Currently or been in a relationship where the following occur: No concerns reported THRIVE Score: 1 MINESH-7 AMB Questionnaire MINESH-7 Date MINESH - 7 assessed: 03/31/25 Feeling nervous, anxious, or on edge: 0 = Not at all Not being able to stop or control worryin = Not at all Worrying too much about different things: 0 = Not at all Trouble relaxin = Not at all Being so restless that it is hard to sit still: 0 = Not at all Becoming easily annoyed or irritable: 0 = Not at all Feeling afraid as if something awful might happen: 0 = Not at all Total MINESH-7 score (0-4 normal; 5-9 mild; 10-14 moderate; 15-21 severe): 0 Source: Developed by Drs. Sree Barnes, Juan Manuel Templeton and colleagues, with an educational paul from [employer]. MINSEH-7 Assessment Billing MINESH-7 Assessment Tool: MINESH-7 Assessment 44042 Physical exam (Primary Care) Vital Signs: Last Vital Signs Temp 97.2 F 03/31/25 08:05 Pulse 97 03/31/25 08:05 BP 110/64 03/31/25 08:05 Pulse Ox 96 03/31/25 08:05 Oxygen Delivery Method Room Air 03/31/25 08:05 BMI result Body Mass Index 31.9 Tobacco/Smoking Status: Tobacco use Status Tobacco use date assessed 03/31/25 03/31/25 08:10 Patient Tobacco Use Status Current everyday Tobacco 03/31/25 08:10 Tobacco use type Cigarette 03/31/25 08:10 e-Cigarette/Vaping Use Never Used 03/31/25 08:10 PHQ-9: PHQ-9 Score PHQ-9: Total score 0 03/31/25 08:10 Depression Screening Interpretation: Negative Thrive Assessment: Date of Thrive Assessment Date Thrive assessed 07/23/24 03/31/25 08:10 Currently or been in a relationship where the following occur: No concerns reported Coding Level of Care Code Est Pt Level 3 (96558) Est Pt Prev Care 40-64y(46738) Diagnoses Type 2 diabetes mellitus without complication, without long-term current use of insulin E11.9 Diabetes mellitus type: type 2 Diabetes mellitus long-term insulin use: without long-term use Diabetes mellitus complication status: without complication Physical exam Z00.00 Screening-pulmonary TB Z11.1 Additional Codes MINESH-7 Assessment Billing - MINESH-7 Assessment Tool: MINESH-7 Assessment 92102 ([id number]) Assessment & Plan Assessment & Plan (1) Diabetes: Onset Date: ~2019 Comment: (DM2 - dx 2019) Code(s): E11.9 - Type 2 diabetes mellitus without complications Category: Medical Qualifiers: Diabetes mellitus type: type 2 Diabetes mellitus emt intermediate insulin use: without emt intermediate use Diabetes mellitus complication status: without complication Qualified Code(s): E11.9 - Type 2 diabetes mellitus without complications (2) Physical exam: Code(s): Z00.00 - Encounter for general adult medical examination without abnormal findings Category: Medical (3) Screening-pulmonary TB: Code(s): Z11.1 - Encounter for screening for respiratory tuberculosis Category: Medical Plan . Orders: Orders T Spot TB Today Z11.1 - Encounter for screening for respiratory tuberculosis Medications: Changed From semaglutide 1 mg (0.75 mL) subcut QWEEK 3 mL 5RF To semaglutide 2 mg (0.75 mL) subcut QWEEK 3 mL 5RF
== END 2025-03-31 08:38 | disposition home or self-care (01) ==
LOC: HO.HMCC 07:49
PROVIDERS: PCP Nurse Practitioner Family; Visit Provider Nurse Practitioner Family
DX: Z00.00 Encounter for general adult medical examination without abnormal findings (principal); E11.9 Type 2 diabetes mellitus without complications; Z11.1 Encounter for screening for respiratory tuberculosis; Z23 Encounter for immunization

== ENCOUNTER 2025-03-31 07:48 | Outpatient (REF) | payer OTHER, SELFPAY ==
[2025-04-03 10:19] LABS: TS Negative Control Passed; TS Panel A 0; TS Panel B 0; TS Positive Control Passed; TSpotTB Negative (Negative)
== END 2025-03-31 07:49 | disposition home or self-care (01) ==
LOC: HO.HMGCLDS 07:48
PROVIDERS: PCP Nurse Practitioner Family; Visit Provider Nurse Practitioner Family
DX: Z11.1 Encounter for screening for respiratory tuberculosis (principal); Z23 Encounter for immunization; Z00.00 Encounter for general adult medical examination without abnormal findings; E11.9 Type 2 diabetes mellitus without complications; Z79.899 Other long term (current) drug therapy
CPT/HCPCS: 36415; 83036; 86481; 90471; 90715; 96127

== ENCOUNTER 2025-04-27 09:20 | Outpatient (AMB) | payer OTHER, SELFPAY ==
--- NOTE | 2025-04-27 09:25 | A.OFFVIS_ITS ---
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 Reporting Coordinator: Reporting Coordinator Present (Dilcia) Accompanied by: Self / Same As Patient Allergies Sulfa (Sulfonamide Antibiotics) Allergy (Mild, Verified 04/27/25 09:37) itchy Medication List - Last Reconciled 04/27/25 by Amparo Graham CNM albuterol sulfate 90 mcg/actuation (Ventolin HFA) 1 inh inhalation QID PRN alcohol swabs (Alcohol Prep Pads) 1 pad topical DAILY atorvastatin 10 mg PO BEDTIME blood sugar diagnostic (FreeStyle Lite Strips) 1 strip miscellaneous twice a day; blood-glucose meter (FreeStyle Lite Meter kit) As directed ibuprofen 800 mg PO BID PRN 30 days lancets (FreeStyle Lancets) 28 gauge miscellaneous twice a day testing; twice a day testing losartan 25 mg PO DAILY magnesium oxide 400 mg PO DAILY [id number]-hykontkv-jvihuv 1 tab PO DAILY ondansetron 4 mg PO Q8H PRN polyethylene glycol 3350 (Miralax) 17 grams PO DAILY PRN semaglutide 2 mg (0.75 mL) subcut QWEEK sumatriptan succinate 50 mg PO ONCE PRN 30 days turmeric root extract 1,000 mg PO DAILY Is last menstrual period known: Yes Post menopausal: Yes Patient : No HPI HPI 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 She is not having any particular issues she had her last period so far in October but 1 other time it has stopped and she thought she was done and then they came back for another year so she is not sure yet. She is not having any vaginal dryness in fact she is feeling wet which is surprising because of her Sjogren's. She did have some hot flashes since so she self started black cohosh and it has been helping.. She has hypertension and diabetes she has been on Ozempic for quite a while and it is helping her in she thinks she has lost about 30 lb so far and the dose was just increased. She has no particular worries but she is interested in full STI screening. 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 She leans towards natural substances when needed she had a boil like lesion in left side of the abdomen in the stretch dario and she put witch Eusebia on it and it is healing. [facility] Medical History (Updated 04/27/25 @ 10:13 by Amparo Graham CNM) Diabetes (~2019) HTN (hypertension) NUNO (obstructive sleep apnea) Nicotine dependence, cigarettes, uncomplicated Tubular adenoma of colon (~2018) Sjogrens syndrome Restless legs syndrome (RLS) Burning sensation Hx of abnormal cervical Pap smear Surgical History History of colonoscopy History of loop electrical excision procedure (LEEP) History of cervical biopsy History of endometrial ablation History of tubal ligation History of skin graft Family History Father No problems noted. Mother HTN (hypertension) IDDM (insulin dependent diabetes mellitus) Breast cancer Maternal Grandmother History of heart attack Breast cancer Maternal Grandfather History of heart attack Diabetes mellitus Paternal Grandfather No problems noted. Paternal Grandmother No problems noted. Maternal Aunt Cancer Maternal Uncle Lung cancer Smoker Brother No problems noted. Brother No problems noted. Brother No problems noted. Brother No problems noted. Son No problems noted. Son No problems noted. Daughter Healthy female Daughter Healthy female Social History Housing: House Alcohol intake: never Patient Tobacco Use Status: Current everyday Tobacco user Tobacco use type: Cigarette Cigarette Packs Per Day: 1 Years Smoked: (onset 8yo, 1ppd x 46yrs, 40PYH) e-Cigarette/Vaping Use: Never Used Second Hand Smoke Exposure: No Substance Use Type: Marijuana Current occupational status: employed Cognitive needs: No Hearing needs: No Vision needs: No Female Reproductive History Menstrual Age of Menarche: 12 Total pregnancies: 5 Full term: 4 Date of last pap smear: 04/21/24 (negative pap smear, negative hpv ) History of abnormal pap smear: Yes (2017) Date of Mammogram: 04/21/24 (bi rad 1) Physical Exam Vital Signs: Last Vital Signs BP 116/68 04/27/25 09:34 BMI result Body Mass Index 31.9 Const General: healthy appearing, comfortable, no acute distress, well developed and alert Nutritional Appearance: average body habitus Orientation/consciousness: patient oriented x3 Limitations: no limitations HEENT Head: Yes normocephalic Neck Neck: Yes normal visual inspection Chest Chest palpation & inspection: normal inspection of the chest Breast/axilla inspection: normal inspection of the breasts and normal inspection of the axillae Breast/axilla palpation: normal palpation of the breasts and normal palpation of the axillae Resp Effort & Inspection: normal respiratory effort GI Inspection: Yes normal to inspection, No Abdominal wall edema and No distended Palpation (GI): Soft to palpation and nontender Other: External exam within normal limits vagina pink moist healthy appearing there is a abundant redundant vaginal tissue allowing for challenging visualization of the cervix there is a reddened mucosal center which is consistent with a LEEP. Pap smear done at her request for certainty because of her past history. Testing for STIs done as well. Cervix long close thick mobile nontender uterus midposition mobile nontender does not feel enlarged adnexa nontender good muscle tone. General: Yes bladder normal to palpation External Female Exam: normal external appearance and normal appearance of the urethra Speculum Exam - Vagina: normal appearance of the vagina, normal palpation and normal vaginal discharge Speculum Exam - Cervix: normal appearance of the cervix, normal palpation and nontender Bimanual exam- vagina & uterus: normal bimanual exam, normal palpation, uterine size normal, bladder normal to palpation, consistency normal, normal palpation, uterine mobility normal, uterine shape normal, No Cervical tenderness present, non-tender and no cervical motion tenderness Bimanual Exam- Adnexa, other: normal adnexae, no masses, normal and No adnexal tenderness Neuro General: patient oriented x3 Results Reviewed Results Reviewed: Name: Rosa Rebollar Age/Sex: 53/F Attending: Amparo Graham CNM : 1970 Submitted by: Amparo Graham CNM Copies to: MR #: [id number] Status: DEP REF Collected: 04/21/24 Location: [facility] Received: 04/22/24 Interpretation Satisfactory for evaluation. Negative for intraepithelial lesion or malignancy. Coccobacilli consistent with shift in vaginal nikkie. Mild inflammation. HPV High Risk: Negative HPV Genotyping 16: Negative HPV Genotyping 18: Negative Clinical Information LMP: Unknown date Previous PAP test: 2021, 2020 neg, 2018 abnormal Other surgery: Other history: Material Received ThinPrep-Cervical Electronically Signed By: EDI Maya (ASCP) 04/24/24 2941 As of March 25, 2024, the technical services to include automated prescreening performed by the ThinPrep Imaging System, PAP screening and HPV testing will be performed at [facility] (CLIA #[id number]), [address] [place] [address]. Testing for HPV was performed using the Brielle JAVIER 6800 system. The presence of HPV in the female genital tract is associated with a number of diseases, including cervical carcinoma. The HPV DNA high risk pool tests for HPV 31, 33, 35, 39, 45, 51, 52, 56, 58, 59, 66 and 68. The testing for HPV 16 and 18 genotypes has also been performed. A positive result indicates detection of nucleic acid sequences from one or more subtypes, whereas a negative result indicates such sequences were not detected. All professional services are performed by [facility] ([address] [place], [place] [id number]; ; CLIA #[id number]). The PAP Test is a screening procedure with the inherent possibility of both false negative and false positive results. Results should be interpreted in the context of historic and current clinical findings. Reliability of the PAP Test is enhanced by performing the test on a regular repetitive basis. Patient: Rosa Rebollar Age/Sex: 53/F MR#: [id number] Page 1 of 1 Assessment & Plan Assessment & Plan (1) HTN (hypertension): Code(s): I10 - Essential (primary) hypertension Category: Medical Qualifiers: Hypertension type: primary hypertension Qualified Code(s): I10 - Essential (primary) hypertension (2) Sjogrens syndrome: Code(s): M35.00 - Sjogren syndrome, unspecified Category: Medical Qualifiers: Sjogren's organ involvement: keratoconjunctivitis Qualified Code(s): M35.01 - Sicca syndrome with keratoconjunctivitis (3) Hx of abnormal cervical Pap smear: Comment: History of LEEP, and 2018 abnormal Pap... 03/23/21 pap= NEG w neg hpv; 04/19/22 pap= neg w neg hpv; pap repeated at pt request 04/21/24= neg w neg HPV.; 04/27/2025- Pap done. Code(s): Z87.42 - Personal history of other diseases of the female genital tract Category: Medical (4) Diabetes: Onset Date: ~2019 Comment: (DM2 - dx 2019), 04/27/2025 is losing weight and feels good on Ozempic... 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 Diabetes mellitus complication status: without complication Qualified Code(s): E11.9 - Type 2 diabetes mellitus without complications (5) Encounter for screening examination for sexually transmitted disease: Code(s): Z11.3 - Encounter for screening for infections with a predominantly sexual mode of transmission Category: Medical Plan -----Discussed in this visit the following: healthy balanced diet, regular and consistent exercise, getting recommended health screens, doing the best she can for her particular health concerns, kegel exercises, pap smear screening and followup recommendations, mammography screening and SBE, normal changes in cycles in her life stage--- . Reviewed how she is doing with perimenopause,; she is finding relief with the hot flashes using the black cohosh. She is not really having any other symptoms that are worrisome she is doing well with the Ozempic and her blood pressure is under control. She wanted testing for STIs just to be sure testing ordered she will get the labs done with the next primary care labs she gets. She has her mammogram right after this appointment. She is experiencing lots of arthritic kinds of challenges with her hips and her back and neck and she has started seeing a chiropractor she gets up and walks frequently at work. Pap smear done as well as the STI screening RTC 1 year. Orders: Orders Hepatitis B Surface Antigen Today E11.9 - Type 2 diabetes mellitus without complications, I10 - Essential (primary) hypertension, M35.01 - Sjogren syndrome with keratoconjunctivitis, Z11.3 - Encounter for screening for infections with a predominantly sexual mode of transmission, Z87.42 - Personal history of other diseases of the female genital tract Hepatitis C Antibody Today E11.9 - Type 2 diabetes mellitus without complications, I10 - Essential (primary) hypertension, M35.01 - Sjogren syndrome with keratoconjunctivitis, Z11.3 - Encounter for screening for infections with a predominantly sexual mode of transmission, Z87.42 - Personal history of other diseases of the female genital tract Syphilis Screen Today E11.9 - Type 2 diabetes mellitus without complications, I10 - Essential (primary) hypertension, M35.01 - Sjogren syndrome with keratoconjunctivitis, Z11.3 - Encounter for screening for infections with a predominantly sexual mode of transmission, Z87.42 - Personal history of other diseases of the female genital tract HIV Ab/Ag Today E11.9 - Type 2 diabetes mellitus without complications, I10 - Essential (primary) hypertension, M35.01 - Sjogren syndrome with keratoconjunctivitis, Z11.3 - Encounter for screening for infections with a predominantly sexual mode of transmission, Z87.42 - Personal history of other diseases of the female genital tract Coding Level of Care Code Est Pt Prev Care 40-64y(90248) Diagnoses Primary hypertension I10 Hypertension type: primary hypertension Sjogren's syndrome with keratoconjunctivitis sicca M35.01 Sjogren's organ involvement: keratoconjunctivitis Hx of abnormal cervical Pap smear Z87.42 Type 2 diabetes mellitus without complication, without long-term current use of insulin E11.9 Diabetes mellitus type: type 2 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
[2025-04-27 09:34] VITALS: BP 116/68; BMI 31.9
== END 2025-04-27 10:38 | disposition home or self-care (01) ==
LOC: HO.HWSM 09:20
PROVIDERS: PCP Nurse Practitioner Family; Visit Provider Advanced Practice Midwife
DX: Z01.419 Encounter for gynecological examination (general) (routine) without abnormal findings (principal); E11.9 Type 2 diabetes mellitus without complications; I10 Essential (primary) hypertension; M35.01 Sjogren syndrome with keratoconjunctivitis; Z87.42 Personal history of other diseases of the female genital tract; Z11.3 Encounter for screening for infections with a predominantly sexual mode of transmission
CPT/HCPCS: 99396; 99459

== ENCOUNTER 2025-04-27 10:39 | Outpatient (REF) | payer OTHER, SELFPAY ==
--- NOTE | ~2025-04-27 | MM_ITS ---
EXAMINATION: MM SCREENING DIGITAL BREAST TOMOSYNTHESIS, BILATERAL CLINICAL INFORMATION: Screening. Asymptomatic. COMPARISON: Comparison made to multiple prior, most recent April 21, 2024, and most remote March 26, 2018. TECHNIQUE: Digital breast tomosynthesis is performed in mediolateral oblique and craniocaudal views along with computer-aided detection (CAD). Synthesized 2D images are generated from the tomosynthesis. FINDINGS: BREAST COMPOSITION: There are scattered areas of fibroglandular density. BILATERAL BREASTS: No significant masses, suspicious calcifications or other abnormalities are seen in either breast. MM/MM tomosynthesis screening BI IMPRESSION: BILATERAL BREASTS: Negative, no mammographic evidence of malignancy. Normal interval follow-up is recommended in 12 months. ASSESSMENT: BI-RADS: Category 1: Negative RECOMMENDATION: Routine annual mammography screening. FOLLOW-UP: 1 year F/U This examination should not preclude the clinical evaluation of a suspicious palpable abnormality. This patient's information was entered into a reminder system with a target due date for their next mammogram. Electronically signed by: Seng Correa MD 04/27/2025 07:49 PM [facility]
== END 2025-04-27 10:40 | disposition home or self-care (01) ==
LOC: HO.MAMMO 10:39
PROVIDERS: PCP Nurse Practitioner Family; Visit Provider Nurse Practitioner Family
DX: I10 Essential (primary) hypertension (principal); M35.01 Sjogren syndrome with keratoconjunctivitis; Z11.3 Encounter for screening for infections with a predominantly sexual mode of transmission; Z12.31 Encounter for screening mammogram for malignant neoplasm of breast; Z87.42 Personal history of other diseases of the female genital tract
CPT/HCPCS: 77063; 77067

== ENCOUNTER → 2025-04-27 11:00 | Outpatient (BNV) | payer OTHER, SELFPAY | PROVIDERS: PCP Nurse Practitioner Family; Visit Provider Radiology Body Imaging | DX: Z12.31 Encounter for screening mammogram for malignant neoplasm of breast (principal) | CPT/HCPCS: 77063; 77067 ==

== ENCOUNTER 2025-04-27 15:53 | Outpatient (REF) | payer OTHER, SELFPAY ==
--- OUTSIDE RECORDS SUMMARY | 2025-04-27 19:21 | XMS_ITS | Patient Health Record ---
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 Phone NABILA GARCIA Primary Care Provider Cesario Lloyd Jr Unavailable Allergies Allergen (clinical drug ingredient) Drug/Non Drug Allergy documented on EMR Reaction Allergy Type Onset Date Status seasonal (uncoded) Unknown Allergy A ctive Substance with sulfonamide structure and antibacterial mechanism of action (substance) Sulfa Antibiotics Unknown Drug Allergy Active Reason For Referral No Information Medications Medication SIG (Take, Route, Frequency, Duration) Notes Start Date End Date Status Magnesium 300 MG Capsule 1 capsule with a meal Orally Once a day; Duration: 30 day(s) Active Semaglutide(0.25 or 0.5MG/DOS) 2 MG/1.5ML Solution Pen-injector as directed Subcutaneous Active Ibuprofen 800 MG Tablet 1 tablet with fo od or milk as needed Orally every 8 hrs Active Losartan Potassium 25 MG Tablet 1 tablet Orally Once a day; Duration: 30 day(s) Active Turmeric - Powder as directed Active Atorvastatin Calcium 40 MG Tablet 1 tablet Orally Once a day; Duration: 30 day(s) Active Albuterol 90 MCG/ACT Aerosol Solution as directed Inhalation A ctive Multi Vitamin - Tablet 1 tablet Orally O nce a day; Duration: 30 day(s) Active SUMAtriptan 5 MG/ACT Solution 1 spray at onset of headache in one nostril may repeat dose after 2 hours as needed Nasally Once a day; Duration: 1 day(s) Active metroNIDAZOLE 0.75 % Cream 1 application Externally Twice a day Active Immunizations Vaccine Route Administration Date Status Comme nts Influenza Unknown 02/25/2024 Administered Social History Tobacco Use: Social History Observation Description Date Details (start date - stop date) Current Smoker NA - NA Social History Drugs/Alcohol: Social Info Question Answer Notes Alcohol Screen Did you have a drink containing alcohol in the past year? No Points 0 Interpretation Negative Tobacco Use: Social Info Question Answer Notes Tobacco Use/Smoking Patient is a current smoker Additional Details Category Social Info Options Details Miscellaneous: Marital status: single Occupation: works full-time Problems Problem Type SNOMED Code ICD Code Onset Dates Problem Status W/U Status Risk Notes Problem Diverticulitis (60621320) Diverticulitis (K57.92) Active confirmed Problem Pancreatic cyst (94932389) Pancreatic cyst (K86.2) Active confirmed Vital Signs Temperature 97.3 degrees Fahrenheit 06/17/2024 Blood pressure diastolic 00 mm Hg 06/17/2024 Height 5 ft 7 in in 06/17/2024 Blood pressure systolic 000 mm Hg 06/17/2024 Weight 215 lb 6 oz lbs 06/17/2024 BMI 33.73 kg/m2 06/17/2024 Encounters Encounter Location Date Provider Diagnosis [facility] [address] [place] [id number] 06/17/2024 Cesario Domínguez Jr Pancreatic cyst K86.2 and Diverticulitis K57.92 [facility] [address] [place] [id number] 06/24/2024 Cesario Domínguez Jr Assessments Encounter Date [...] Of Treatment Next Appt Details Provider Name:Cesario Payne Guerrero reid Jr, 11/03/2025 09:00:00 AM, [address] [place] [address], [address], [place], [address], Insurance Providers Payer Name Payer Address Payer Phone Subscriber Number Group Number Insured Name Patient Relationship to Insured Coverage Start Date Coverage End Date [facility] [address] [place] [phone] [id number] KRAIG BROOKE Self - patient is the insured Medical (General) History Medical History History ICD Code Hypertension Diabetes mellitus type 2 with neuropathy Hyperlipidemia Colonoscopy 12/24, tubular adenoma, seven -year followup Lupus/Sjogren's syndrome Diverticulitis Pancreatic head lesion Surgical History Surgery Date(Month/Year) Tubal ligation Skin graft to foot Urethral sling
[2025-04-28 13:07] LABS: Bacterial Vaginosis PCR POSITIVE (Negative); Candida Group PCR NOT DETECTED (Not Detect); Candida glab krusei PCR NOT DETECTED (Not Detect); Trichomonas vaginalis PCR NOT DETECTED (Not Detect)
[2025-04-28 13:39] LABS: CT PCR NOT DETECTED (Not Detect.); NG PCR NOT DETECTED (Not Detect.)
== END 2025-04-27 15:54 | disposition home or self-care (01) ==
LOC: HO.LNP 15:53
PROVIDERS: Visit Provider Advanced Practice Midwife
DX: Z20.2 Contact with and (suspected) exposure to infections with a predominantly sexual mode of transmission (principal); Z87.42 Personal history of other diseases of the female genital tract
CPT/HCPCS: 81515; 87491; 87591; 87626; 88175